=== PATIENT | female | born 1980 | race Caucasian/White ===

== ENCOUNTER 2021-04-15 12:46 | Emergency (ER) | payer OTHER, SELFPAY ==
--- NOTE | ~2021-04-15 | CT_ITS ---
EXAMINATION: CT ABDOMEN AND PELVIS WITH CONTRAST CLINICAL INFORMATION: Epigastric pain COMPARISON: None TECHNIQUE: Multidetector volumetric images were obtained from the superior aspect of the liver through the pubic symphysis following administration 85 mL of Omnipaque 350 intravenous contrast. Sagittal and coronal reformatted images were obtained on the technologist's workstation. Oral contrast: No This CT examination was performed using dose optimization techniques as appropriate, variously including the following: *Automated exposure control *Adjustment of mA and/or kV according to patient size (this includes techniques or standardized protocols for targeted exams where dose is matched to indication/reason for exam; i.e. extremities or head) *Use of iterative reconstruction technique DLP: 260 to mGy-cm FINDINGS: LUNG BASES: The visualized lung bases are unremarkable. LIVER, GALLBLADDER, AND BILIARY TREE: The liver is normal in size, shape, and attenuation. No focal hepatic lesion or biliary ductal dilatation is present. The gallbladder is unremarkable with no evidence of radiopaque gallstones, gallbladder wall thickening, or obvious pericholecystic inflammatory changes. PANCREAS: Unremarkable. SPLEEN: Unremarkable. ADRENAL GLANDS: Unremarkable. KIDNEYS AND URETERS: The kidneys are normal in size, shape, and attenuation. The right kidney is ptotic. No hydronephrosis, hydroureter, or calculi seen. No perinephric stranding. BLADDER: Unremarkable. GASTROINTESTINAL TRACT: The small and large bowel are unremarkable. The appendix is unremarkable. ABDOMINAL WALL: No significant hernia is appreciated. LYMPH NODES: Normal. VASCULAR: Unremarkable. PELVIC VISCERA: An anteverted uterus is present. There is 1.9 cm water density cyst in the right ovary. Left ovary is small and unremarkable. OSSEOUS STRUCTURES: Minimal degenerative change present at L4-L5 with minimal retrolisthesis of L4 upon L5. CT/CT abdomen pelvis w con IMPRESSION: 1. A cause for the patient's acute epigastric pain has not been found. 2. Incidental note made of ptotic right kidney and right benign functional ovarian cyst. No further follow-up should be needed.
[2021-04-15 12:54] VITALS: BP 122/63; PULSE 109; RESP 18; TEMP 36.8; O2SAT 96; BMI 23.6
--- NOTE | 2021-04-15 14:57 | ED.ALCOHOL ---
HPI - Alcohol General Chief Complaint: ETOH/Substance Use Stated Complaint: alcohol intoxication Time Seen by Provider: 04/15/21 14:42 Source: patient Mode of arrival: ambulatory Limitations: no limitations History of Present Illness HPI narrative: Patient comes emergency room complaining of abdominal pain and alcohol intoxication. Patient states she drinks 3 pt of vodka yesterday and 2 pt of vodka today. Patient states this is more alcohol than she usually ingests. Patient denies suicidal ideation. Patient has had history of pancreatitis in the past. Related Data Previous Rx's Medication Instructions Recorded aripiprazole 10 mg tablet (Abilify) 10 mg PO BEDTIME #30 tab 04/08/21 levetiracetam 750 mg tablet 750 mg PO BID #60 tab 04/08/21 pantoprazole 40 mg tablet,delayed 40 mg PO DAILY #30 tab 04/08/21 release sertraline 100 mg tablet (Zoloft) 100 mg PO DAILY #30 tab 04/08/21 Allergies Allergy/AdvReac Type Severity Reaction Status Date / Time Penicillins AdvReac Rash Verified 04/15/21 12:53 Review of Systems Review of Systems: Constitutional : No Weight loss, No Fever, No Chills, No Night Sweats, No Fatigue, No Malaise ENT/Mouth : No Hearing loss, No Ear Pain, No Nasal Congestion, No Sinus Pain, No Hoarseness, No sore throat, No Rhinorrhea, No Swallowing Difficulty Eyes: No Eye Pain, No Swelling, No Redness, No Foreign Body, No Discharge, No Vision Changes Cardiovascular : No Chest Pain, No SOB, No Dyspnea on Exertion, No Orthopnea, No Edema, No Palpitations Respiratory : No Cough, No Sputum, No Wheezing, No Smoke Exposure, No Dyspnea Gastrointestinal : Complaining of nausea, vomiting, no constipation, complaining of diarrhea, complaining of epigastric and suprapubic pain Genitourinary : Irregular menstrual cycle No Dysuria, No Urinary Frequency, complaining of Hematuria for 3 weeks No Urinary Incontinence, No Urgency, No Flank Pain, No Urinary Flow Changes, No Hesitancy Musculoskeletal : No joint pain, No Myalgias, No Joint Swelling Skin : No Skin Lesions, No rash Neuro : No Weakness, No Numbness, No Paresthesias, No Loss of Consciousness, No Dizziness, No Headache Psych : No Anxiety/Panic, No Depression, No SI/HI/AH/VH, No Social Issues, Heme/Lymph: No Bruising, No Bleeding,No Lymphadenopathy Endocrine : No Polyuria, No Polydipsia, No Temperature Intolerance [facility] Past Medical History Medical History (Updated 04/15/21 @ 16:17 by Monalisa Santos MD) Alcohol use disorder Chronic heartburn Cigarette smoker one half pack a day or less Depression with anxiety Hx of Hx of pancreatitis Irregular periods/menstrual cycles Seizure disorder Surgical History [place] teeth extracted Family History Family History (Updated 04/08/21 @ 16:32 by Bertha Benoit CMA) Other No significant family history Social History Social History Housing: Other (mobile home with mother) Alcohol intake: current Alcohol intake frequency: a few times a week Alcohol type: beer and other Patient Tobacco Use Status: Current everyday Tobacco user Cigarette Packs Per Day: 0.5 Advance Directives: No Patient : No Current occupational status: unemployed Physical Exam Vital Signs: Vital Signs: Last Vital Signs Temp 98.3 F 04/15/21 12:54 Pulse 109 H 04/15/21 12:54 Resp 18 04/15/21 12:54 BP 122/63 04/15/21 12:54 Pulse Ox 96 04/15/21 12:54 Body Mass Index 23.6 Const: Other: Appearance: Alert. Oriented X3. , seems intoxicated, teary Eyes: Pupils equal, round and reactive to light. ENT: Pharynx normal. Neck: Normal inspection. Neck supple. No lymph nodes noted. No crepitus CVS: Normal heart rate and rhythm. Pulses normal. Normal S1 and S2 Respiratory: No respiratory distress. Breath sounds normal. No Wheezing. No rales Abdomen: Soft, tenderness to palpation in epigastric area and suprapubic area, no rigidity. No distention. Skin: Skin warm and dry. Normal skin color. Normal skin turgor. Extremities: No lower extremity edema. No lower extremity edema. No Lacerations. No Rash Neuro: Oriented X 3. No motor deficit. No sensory deficit. Moving all extermities. No slurred speech. Course Course Course Narrative: Labs pending, CT scan pending, sign-out given to Dr. Negron MDM - Alcohol Lab Data Result diagrams: 04/15/21 15:06 04/15/21 15:06 Labs: Lab Results 04/15/21 04/15/21 04/15/21 Range/Units 15:06 15:06 15:06 WBC 5.9 (4.8-10.8) X10*3/uL RBC 5.36 (4.20-5.50) X10*6/uL Hgb 14.4 (12.0-16.0) g/dl Hct 43.1 (37-47) % MCV 80.4 (80-98) fL MCH 26.9 L (27.0-33.0) pg MCHC 33.4 (31.0-35.0) g/dl RDW 16.8 H (11.0-16.0) % Plt Count 206 (160-400) X10*3/uL MPV 8.5 L (9.4-12.3) fL Immature Gran % (Auto) 0.2 (0.0-0.4) % Neut % (Auto) 27.5 L (45-73) % Lymph % (Auto) 65.6 H (20-40) % [place] % (Auto) 4.3 (2-11) % Eos % (Auto) 1.5 (0-4) % Baso % (Auto) 0.9 (0-2) % Lymph # (Auto) 3.8 (1.2-4.9) X10*3/uL [place] # (Auto) 0.3 (0.1-1.2) X10*3/uL Eos # (Auto) 0.1 (0.0-0.4) X10*3/uL Baso # (Auto) 0.1 (0.0-0.2) X10*3/uL Abs Immat Gran (auto) 0.01 (0.00-0.03) X10*3/uL Absolute Neuts (auto) 1.6 L (2.0-8.3) X10*3/uL Absolute Nucleated RBC 0.000 (0.0-0.012) X10*3/uL Nucleated RBC % (auto) 0.0 (0.0-0.2) /100WBC Smear Tech's Comments VERIFIED Sodium 139 (135-145) mmol/L Potassium 4.1 (3.3-5.1) mmol/L Chloride 105 (96-108) mmol/L Carbon Dioxide 23 (22-29) mmol/L Anion Gap 15 (12-20) BUN 9 (9-16) mg/dL Creatinine 0.71 (0.5-1.4) mg/dL Estim Creat Clear Calc 88.0 Estimated GFR > 60 Random Glucose 91 (60-115) mg/dL Calcium 8.1 L (8.4-10.2) mg/dL Total Bilirubin 0.5 (0.0-1.0) mg/dL AST 169 H (5-31) U/L ALT 307 H (0-31) U/L Alkaline Phosphatase 82 (39-117) U/L Total Protein 7.5 (6.5-8.0) g/dL Albumin 4.1 (3.5-5.0) g/dL Lipase (8-78) U/L Ethyl Alcohol 387 H* mg/dL 04/15/ Range/Units 15:06 WBC (4.8-10.8) X10*3/uL RBC (4.20-5.50) X10*6/uL Hgb (12.0-16.0) g/dl Hct (37-47) % MCV (80-98) fL MCH (27.0-33.0) pg MCHC (31.0-35.0) g/dl RDW (11.0-16.0) % Plt Count (160-400) X10*3/uL MPV (9.4-12.3) fL Immature Gran % (Auto) (0.0-0.4) % Neut % (Auto) (45-73) % Lymph % (Auto) (20-40) % [place] % (Auto) (2-11) % Eos % (Auto) (0-4) % Baso % (Auto) (0-2) % Lymph # (Auto) (1.2-4.9) X10*3/uL [place] # (Auto) (0.1-1.2) X10*3/uL Eos # (Auto) (0.0-0.4) X10*3/uL Baso # (Auto) (0.0-0.2) X10*3/uL Abs Immat Gran (auto) (0.00-0.03) X10*3/uL Absolute Neuts (auto) (2.0-8.3) X10*3/uL Absolute Nucleated RBC (0.0-0.012) X10*3/uL Nucleated RBC % (auto) (0.0-0.2) /100WBC Smear Tech's Comments Sodium (135-145) mmol/L Potassium (3.3-5.1) mmol/L Chloride (96-108) mmol/L Carbon Dioxide (22-29) mmol/L Anion Gap (12-20) BUN (9-16) mg/dL Creatinine (0.5-1.4) mg/dL Estim Creat Clear Calc Estimated GFR Random Glucose (60-115) mg/dL Calcium (8.4-10.2) mg/dL Total Bilirubin (0.0-1.0) mg/dL AST (5-31) U/L ALT (0-31) U/L Alkaline Phosphatase (39-117) U/L Total Protein (6.5-8.0) g/dL Albumin (3.5-5.0) g/dL Lipase 76 (8-78) U/L Ethyl Alcohol mg/dL Discharge Plan Discharge Clinical Impression: Alcoholic intoxication Prescriptions: No Action levetiracetam 750 mg tablet 750 mg PO BID Qty: 60 RF: 0 pantoprazole 40 mg tablet,delayed release (DR/EC) 40 mg PO DAILY Qty: 30 RF: 0 aripiprazole [Abilify] 10 mg tablet 10 mg PO BEDTIME Qty: 30 RF: 0 sertraline [Zoloft] 100 mg tablet 100 mg PO DAILY Qty: 30 RF: 0
[2021-04-15 15:18] LABS: Basophils Absolute Auto 0.1 X10*3/uL (0.0-0.2); Basophils Percent Auto 0.9 % (0-2); Eosinophils Absolute Auto 0.1 X10*3/uL (0.0-0.4); Eosinophils Percent Auto 1.5 % (0-4); Hematocrit 43.1 % (37-47); Hemoglobin 14.4 g/dl (12.0-16.0); Imm Gran Abs Auto 0.01 X10*3/uL (0.00-0.03); Imm Gran Pct Auto 0.2 % (0.0-0.4); Lymphocytes Absolute Auto 3.8 X10*3/uL (1.2-4.9); Lymphocytes Percent Auto 65.6 % (20-40); MANUAL DIFF FLAG SCAN; Mean Corpuscular HGB Conc 33.4 g/dl (31.0-35.0); Mean Corpuscular Hemoglobin 26.9 pg (27.0-33.0); Mean Corpuscular Volume 80.4 fL (80-98); Mean Platelet Volume 8.5 fL (9.4-12.3); Monocytes Absolute Auto 0.3 X10*3/uL (0.1-1.2); Monocytes Percent Auto 4.3 % (2-11); Neutrophils Absolute Auto 1.6 X10*3/uL (2.0-8.3); Neutrophils Percent Auto 27.5 % (45-73); Platelet Count 206 X10*3/uL (160-400); Red Blood Count 5.36 X10*6/uL (4.20-5.50); Red Cell Distribution Width 16.8 % (11.0-16.0); SCAN SMEAR FLAG 1; White Blood Count 5.9 X10*3/uL (4.8-10.8)
[2021-04-15 15:28] LABS: Ethanol 387 mg/dL
[2021-04-15 15:32] LABS: Lipase 76 U/L (8-78)
[2021-04-15 15:35] LABS: Alanine Aminotransferase 307 U/L (0-31); Albumin Level 4.1 g/dL (3.5-5.0); Alkaline Phosphatase 82 U/L (39-117); Anion Gap 15 (12-20); Aspartate Amino Transferase 169 U/L (5-31); Bilirubin Total 0.5 mg/dL (0.0-1.0); Blood Urea Nitrogen 9 mg/dL (9-16); Calcium 8.1 mg/dL (8.4-10.2); Carbon Dioxide 23 mmol/L (22-29); Chloride 105 mmol/L (96-108); Estimated Glomerular Filt Rate > 60; Glucose Random 91 mg/dL (60-115); Potassium 4.1 mmol/L (3.3-5.1); Sodium 139 mmol/L (135-145); Total Protein 7.5 g/dL (6.5-8.0)
[2021-04-15] MEDS: ondansetron HCL 4 MG/2 ML VIAL IVPUSH (16:08)
[2021-04-15 16:11] LABS: SLIDE REVIEW VERIFIED
[2021-04-15 16:18] LABS: HCG Quantitative < 2 mIU/mL
[2021-04-15] MEDS: 0.9 % Sodium Chloride 1,000 ML 999 ML IVCONT (16:19)
[2021-04-15 16:28] VITALS: BP 123/86; RESP 14; TEMP 36.3; O2SAT 96
[2021-04-15 16:45] LABS: Amphetamine Screen Urine Not Detected (Not Detect); Barbiturates, Urine Not Detected (Not Detect); Benzodiazepines Screen Urine Not Detected (Not Detect); Cannabinoid Screen Urine Not Detected (Not Detect); Cocaine Screen Urine Not Detected (Not Detect); Fentanyl, urine Not Detected (Not Detect); Opiate Screen Urine Not Detected (Not Detect); Phencyclidine Screen Urine Not Detected (Not Detect)
[2021-04-15] MEDS: levETIRAcetam 500 MG TABLET 750 MG PO (16:57)
[2021-04-15] MEDS: iohexoL 350 MG/ML 100 ML INFUS..BTL IV (17:13)
--- NOTE | 2021-04-15 18:07 | MHC.RECOVSUP ---
? Reason for consult Recovery Support o Current location: ED6[facility] o Identified substance use concern: Alcohol - Withdrawal - Seeking ATS (detox) - Support ? Intervention: <del>o</del> <del>ATS</del> <del>bed</del> <del>search</del> <del>started/completed/in</del> <del>process</del> <del>o</del> <del>MAT</del> <del>started</del> <del>or</del> <del>to</del> <del>be</del> <del>started</del> o Community resources provided o Harm reduction discussion ? Plan: o Follow up tomorrow o Patient to follow up with H after discharge ? Additional information: Patient withdrawing from alcohol and seeking help getting into detox.. Theres no detox bed at the moment.. Patient was given resources to follow up when patient is discharge.
[2021-04-15] MEDS: Magnesium Hydrox/Alum Hydrox 30 ML ORAL.SUSP PO ×2 (18:18→18:41)
[2021-04-15] MEDS: Famotidine/PF 20 MG/2 ML VIAL IVPUSH (18:19)
[2021-04-15] MEDS: Lidocaine HCl Viscous 2 % 15 ML SOLUTION MUCOUS MEM (18:41)
[2021-04-15 19:11] LABS: UPreg QC Valid YES; Urine Pregnancy NEGATIVE (NEGATIVE)
--- NOTE | 2021-04-15 19:15 | PC.NURSE ---
pt calling for sober ride home. pt denies any complaints except for abd pain. MD aware. awaiting for pt's decision.
--- NOTE | 2021-04-15 19:27 | PC.NURSE ---
pt awaiting for ride home from her Mother.
[2021-04-15 19:48] VITALS: BP 121/84; PULSE 89; RESP 16; O2SAT 99
--- NOTE | 2021-04-15 19:48 | PC.NURSE ---
pt up and walking around the ED with steady even gait. Pt denies any complaints. No shaking noted by pt. CIWA - 0.
--- NOTE | 2021-04-15 19:52 | PC.NURSE ---
PT'S MOTHER HERE FOR RIDE HOME. PT ESCORTED TO MOTHER'S VEHICLE WITH STEADY EVEN GAIT AND IN NAD.
== END 2021-04-15 19:55 | disposition home or self-care (01) ==
PROVIDERS: Emergency Provider Emergency Medicine
DX: F10.920 Alcohol use, unspecified with intoxication, uncomplicated (principal); Y90.8 Blood alcohol level of 240 mg/100 ml or more; K70.10 Alcoholic hepatitis without ascites; F41.8 Other specified anxiety disorders; F17.200 Nicotine dependence, unspecified, uncomplicated; Z79.899 Other long term (current) drug therapy
CPT/HCPCS: 36415; 74177; 80053; 80307; 81025; 82077; 83690; 84702; 85025; 96361; 96374; 96375; 99284; 99285; J2405; Q9967

== ENCOUNTER 2022-03-29 15:48 | Outpatient (REF) | payer OTHER, SELFPAY ==
--- NOTE | ~2022-03-29 | XR_ITS ---
EXAMINATION: XR PELVIS CLINICAL INFORMATION: Pain. COMPARISON: CT scan of the abdomen and pelvis dated April 15, 2021. TECHNIQUE: AP view of the pelvis. FINDINGS: Left iliac bone islands, unchanged compared with March 2021. The bones and soft tissues otherwise appear unremarkable. No fracture identified. Sacroiliac and hip joints appear unremarkable. Pubic symphysis appears normal. No abnormal soft tissue calcifications. Tarah. XR/XR pelvis min 3V IMPRESSION: No acute finding.
== END 2022-03-29 15:49 | disposition home or self-care (01) ==
LOC: HO.HMGCX 15:48
PROVIDERS: PCP Internal Medicine; Visit Provider Emergency Medicine
DX: R10.2 Pelvic and perineal pain (principal)
CPT/HCPCS: 72190

== ENCOUNTER 2022-04-14 15:20 | Outpatient (REF) | payer OTHER, SELFPAY ==
[2022-04-15 05:18] LABS: CT PCR NOT DETECTED (Not Detect.); NG PCR NOT DETECTED (Not Detect.)
[2022-04-15 09:07] LABS: BV Int Neg Control Negative (Negative); BV Int Pos Control Positive (Positive)
[2022-04-19 16:02] LABS: HPV mRNA E6/E7 rflx Not Detected (Not Detected)
== END 2022-04-14 15:21 | disposition home or self-care (01) ==
LOC: HO.LNP 15:20
PROVIDERS: Visit Provider Advanced Practice Midwife
DX: Z01.419 Encounter for gynecological examination (general) (routine) without abnormal findings (principal); Z11.3 Encounter for screening for infections with a predominantly sexual mode of transmission
CPT/HCPCS: 87480; 87491; 87510; 87591; 87624; 87660; 88142

== ENCOUNTER 2023-03-12 08:04 | Emergency (ER) | payer MEDICARE, MEDICAID, SELFPAY ==
[2023-03-12 08:10] VITALS: BP 130/87; PULSE 92; RESP 18; O2SAT 96
--- NOTE | 2023-03-12 08:11 | ECG_ITS ---
Test Reason : chest pain Blood Pressure : / mmHG Vent. Rate : 083 BPM Atrial Rate : 083 BPM P-R Int : 174 ms QRS Dur : 074 ms QT Int : 390 ms P-R-T Axes : 077 090 063 degrees QTc Int : 458 ms Normal sinus rhythm with sinus arrhythmia Rightward axis Possible Anterior infarct , age undetermined Abnormal ECG No previous ECGs available Referred By: Jai Mckenzie Electronically Signed By:SADI INGRAM
--- NOTE | 2023-03-12 08:13 | ED_ITS ---
HPI - Alcohol General Chief Complaint: ETOH/Substance Use Stated Complaint: ETOH USE LAST NIGHT PER EMS Time Seen by Provider: 03/12/23 08:06 Source: patient and EMS Mode of arrival: EMS Limitations: no limitations History of Present Illness HPI narrative: 43-year-old female recently discharged from detox presents with possible alcohol withdrawal. Last drink was approximately 9:00 a.m. last night. She has been drinking for 5 days. She does have a history of marijuana use. Patient feels shaky, nauseous and having some mild upper abdominal pain. Patient describes her overall symptoms as severe. There is no clear relieving or exacerbating features. She denies any fevers or chills. She has no diarrhea constipation. Scribe's her upper abdominal pain is burning and crampy in nature. Pain itself does not radiate. Her vomitus has been nonbloody. Related Data Previous Rx's Medication Instructions Recorded levetiracetam 750 mg tablet 750 mg PO BID #60 tabs 09/15/21 Allergies Allergy/AdvReac Type Severity Reaction Status Date / Time Penicillins AdvReac Rash Verified 04/14/22 14:44 Review of Systems 2 Review of Systems: CONSTITUTIONAL: Denies weight loss, fever and chills. HEENT: Denies changes in vision and hearing. RESPIRATORY: Denies SOB and cough. CV: Denies palpitations no CP. GI: + abdominal pain, nausea, vomiting - diarrhea. : Denies dysuria and urinary frequency. MSK: Denies myalgia and joint pain. SKIN: Denies rash and pruritus. NEUROLOGICAL: Denies headache and syncope. PSYCHIATRIC: Denies recent changes in mood. Denies anxiety and depression. All other ROS are negative unless in HPI PMFSH Past Medical History Medical History Alcohol use disorder Cigarette smoker one half pack a day or less Irregular periods/menstrual cycles Depression with anxiety Chronic heartburn Hx of pancreatitis Seizure disorder Hx of Surgical History [place] teeth extracted Family History Family History Other No significant family history Social History Social History Housing: Other (mobile home with mother) Alcohol intake: current Alcohol intake frequency: 3 or more drinks per day Alcohol type: hard liquor Patient Tobacco Use Status: Current everyday Tobacco user Cigarette Packs Per Day: 0.5 Smoked in Last 30 Days: Yes Use of substances other than those prescribed or required for medical reasons: Yes Substance Use Type: Marijuana Advance Directives: No Advance Directives Information Provided: Yes Current occupational status: unemployed Physical Exam ED Vital Signs: Vital Signs - 24 hr 03/12/23 08:10 03/12/23 11:23 Temperature 98.4 F Pulse Rate 92 86 Respiratory Rate 18 20 Blood Pressure 130/87 100/64 Pulse Oximetry 96 96 Oxygen Delivery Method Room Air Room Air BMI result Body Mass Index 18.1 GEN: Well developed, acute distress, alert, oriented HEENT: Normocephalic, atraumatic, normal external ears, nose appears normal, no oropharyngeal edema or exudates Eyes: Normal to appearance Neck: Supple, no lymphadenopathy Respiratory: Talks in complete sentences, no respiratory distress, clear to auscultation bilaterally Cardiovascular: Regular rate and rhythm, no murmurs rubs or gallops Abdomen: Soft, nontender, nondistended, no guarding, no rebound Back: No CVA tenderness Extremities: No clubbing cyanosis or edema Neurologic: No focal neurologic deficits, cranial nerves 2-12 intact, strength is 5/5 bilaterally Skin: No rash Course Reevaluation(s) Reevaluation #1: Patient reports feeling anxious and feels like she withdrawing. We discussed her alcohol level. She is not withdrawing from alcohol at this time and her symptoms are more likely related to gastritis and anxiety. I will put a care team consultation. Patient is otherwise medically clear. I will place the patient in physician observation. Time: 12:47 Reevaluation #2: Patient is expressing a desire to be discharged at this time. She is laboratory testing still intoxicated. We will ambulate her. She is aware of the risks of leaving at this time. Patient does appear to have clinical making decision for herself and is not opposed appear to pose imminent threat to herself or others via suicidal homicidal ideation. I do recommend that she obtain a sober sales warehouse driver to take her home. Certainly she cannot drive at this time. Time: 13:24 Medical Decision Making Medical Decision Making MDM Narrative: 43-year-old female with history of alcohol abuse presents with intractable nausea vomiting. Examination is benign of the vomiting. She is hemodynamically stable. Will provide patient with sublingual Zofran until you are able to obtain intravenous access. So following that, will give additional antiemetics, H2 blockers, IV fluids. Will check routine laboratory analysis make sure there is no hepatic dysfunction, alcohol intoxication. Will provide patient with Ativan for possible withdrawal symptoms. Differential diagnosis includes alcohol withdrawal, gastroenteritis, gastritis, alcohol intoxication, GERD. There is no indication for emergent imaging at this time. Differential Diagnosis Differential Diagnoses: The differential diagnosis associated with the presentation includes (See above) Admission/Observation Consideration of admission/observation: Escalation of care including admission/observation considered Lab Data MDM Lab Attestation statement: I reviewed the patient's lab results. 03/12/23 08:50 03/12/23 11:23 Labs: Lab Results 03/12/23 03/12/23 03/12/23 Range/Units 08:25 08:50 11:23 WBC 7.7 (4.8-10.8) X10*3/uL RBC 6.00 H (4.20-5.50) X10*6/uL Hgb 17.4 H (12.0-16.0) g/dl Hct 50.5 H (37.0-47.0) % MCV 84.2 (80.0-98.0) fL MCH 29.0 (27.0-33.0) pg MCHC 34.5 (31.0-35.0) g/dl RDW 13.1 (11.0-16.0) % Plt Count 196 (160-400) X10*3/uL MPV 8.7 L (9.4-12.3) fL Immature Gran % (Auto) 0.3 (0.0-0.4) % Neut % (Auto) 64.7 (45-73) % Lymph % (Auto) 30.3 (20-40) % [place] % (Auto) 3.9 (2-11) % Eos % (Auto) 0.5 (0-4) % Baso % (Auto) 0.3 (0-2) % Lymph # (Auto) 2.3 (1.2-4.9) X10*3/uL [place] # (Auto) 0.3 (0.1-1.2) X10*3/uL Eos # (Auto) 0.0 (0.0-0.4) X10*3/uL Baso # (Auto) 0.0 (0.0-0.2) X10*3/uL Abs Immat Gran (auto) 0.02 (0.00-0.03) X10*3/uL Absolute Neuts (auto) 5.0 (2.0-8.3) x10*3/uL Absolute Nucleated RBC 0.000 (0.0-0.012) X10*3/uL Nucleated RBC % (auto) 0.0 (0.0-0.2) /100WBC Sodium 138 (135-145) mmol/L Potassium 4.0 (3.3-5.1) mmol/L Chloride 105 (96-108) mmol/L Carbon Dioxide 19 L (22-29) mmol/L Anion Gap 18 (12-20) BUN 12 (9-16) mg/dL Creatinine 0.68 (0.5-1.4) mg/dL Estim Creat Clear Calc 84.8 Estimated GFR > 60 Random Glucose 70 (60-115) mg/dL Calcium 8.3 L (8.4-10.2) mg/dL Total Bilirubin 0.8 (0.0-1.0) mg/dL AST 63 H (5-31) U/L ALT 57 H (0-31) U/L Alkaline Phosphatase 46 (39-117) U/L Total Protein 6.5 (6.5-8.0) g/dL Albumin 3.8 (3.5-5.0) g/dL Beta HCG, Quant < 2 mIU/mL Urine Color Yellow Urine Appearance Cloudy Urine pH 6.0 (5.0-9.0) Ur Specific [place] 1.020 (1.005-1.025) Urine Protein 30 (1+) H (Neg-Trace) mg/dL Urine Glucose (UA) Negative (Negative) mg/dL Urine Ketones 40 (Negative) mg/dL Urine Blood Negative (Negative) Urine Nitrite Negative (Negative) Ur Leukocyte Esterase Negative (Negative) Urine RBC 3-5 H (0-2) /HPF Urine WBC 6-10 H (0-5) /HPF Ur Squamous Epith Cells 11-20 (0-2) /HPF Urine Bacteria 2+ (None Seen) Hyaline Casts 0-2 (0-2) /LPF Urine Opiates Screen Not Detected (Not Detect) Urine Fentanyl Screen Not Detected (Not Detect) Ur Barbiturates Screen Not Detected (Not Detect) Ur Phencyclidine Scrn Not Detected (Not Detect) Ur Amphetamines Screen POSITIVE H (Not Detect) U Benzodiazepines Scrn Not Detected (Not Detect) Urine Cocaine Screen Not Detected (Not Detect) U Marijuana (THC) Screen POSITIVE H (Not Detect) Ethyl Alcohol 98 mg/dL Independent Interpretation I performed an independent interpretation of an: EKG (Normal sinus rhythm heart rate 83, sinus arrhythmia, possible LVH, no acute ST elevations depressions) Independent Historian Clinical information obtained from an independent historian. History obtained from or confirmed by: EMS Prescription Management I considered prescription management with: Pain Medication Chronic Conditions Patient?s care impacted by: Other (Alcohol abuse, seizure disorder) Medications Administered Discontinued Medications Generic Name Dose Route Start Last Admin Trade Name Freq PRN Reason Stop Dose Admin Famotidine 20 mg 03/12/23 08:11 03/12/23 09:01 Famotidine/Pf 20 Mg/2 Ml Vial IVPUSH 03/12/23 08:12 20 mg ONCE ONE Administration Sodium Chloride 1,000 mls @ 999 mls/hr 03/12/23 08:15 03/12/23 11:31 Ns IV 03/12/23 09:15 Infused .Q1H1M ALICIA Infusion Lorazepam 1 mg 03/12/23 08:11 03/12/23 09:01 Lorazepam 2 Mg/Ml Vial IVPUSH 03/12/23 08:12 1 mg ONCE ONE Administration Metoclopramide HCl 10 mg 03/12/23 08:11 03/12/23 09:01 Metoclopramide Hcl 10 Mg/2 Ml Vial IVPUSH 03/12/23 08:12 10 mg ONCE ONE Administration Ondansetron HCl 4 mg 03/12/23 08:11 03/12/23 08:26 Ondansetron Odt 4 Mg Tab.Rapdis TRANSLINGU 03/12/23 08:12 4 mg ONCE ONE Administration Discharge Plan Discharge Clinical Impression: Intractable nausea and vomiting, Alcohol intoxication Patient Disposition: Left Against Medical Advice Instructions: Abuse of Alcohol (DC) Prescriptions: No Action levetiracetam 750 mg tablet 750 mg PO BID Qty: 60 0RF Stand Alone Forms: Against Medical Advice
[2023-03-12] MEDS: Ondansetron ODT 4 MG TAB.RAPDIS TRANSLINGU (08:26)
[2023-03-12 08:28] VITALS: BP 118/70; PULSE 72; O2SAT 100; BMI 18.1
[2023-03-12 08:37] LABS: Appearance Urine Cloudy; Color Urine Yellow; Glucose Urine UA Negative (Negative); Leukocyte Esterase Urine Negative (Negative); Nitrite Urine Negative (Negative); UMIC TRIGGER UACC YES; Urine Blood Negative (Negative); Urine Ketones 40 mg/dL (Negative); Urine Protein 30 (1+) mg/dL (Neg-Trace)
[2023-03-12 08:41] LABS: Bacteria Urine 2+ (None Seen); Hyaline Casts Urine 0-2 /LPF (0-2); UACC Culture Trigger YES
--- NOTE | 2023-03-12 08:42 | PC.NURSE ---
per patients request called mother marge to let her know that she was in the hospital. mother stating that she needs help, that she refused to go to [facility] yesterday unless she had more alcohol.
[2023-03-12 08:47] LABS: Amphetamine Screen Urine POSITIVE (Not Detect); Barbiturates, Urine Not Detected (Not Detect); Benzodiazepines Screen Urine Not Detected (Not Detect); Cannabinoid Screen Urine POSITIVE (Not Detect); Cocaine Screen Urine Not Detected (Not Detect); Fentanyl, urine Not Detected (Not Detect); Opiate Screen Urine Not Detected (Not Detect); Phencyclidine Screen Urine Not Detected (Not Detect)
[2023-03-12 08:58] LABS: MANUAL DIFF FLAG NO
[2023-03-12] MEDS: LORazepam 2 MG/ML VIAL 1 MG IVPUSH (09:01)
[2023-03-12] MEDS: Famotidine/PF 20 MG/2 ML VIAL IVPUSH (09:01)
[2023-03-12] MEDS: 0.9 % Sodium Chloride 1,000 ML 999 ML IV (09:01)
[2023-03-12] MEDS: Metoclopramide HCl 10 MG/2 ML VIAL IVPUSH (09:01)
[2023-03-12 09:10] LABS: Basophils Percent Auto 0.3 % (0-2); Eosinophils Percent Auto 0.5 % (0-4); Hematocrit 50.5 % (37.0-47.0); Hemoglobin 17.4 g/dl (12.0-16.0); Imm Gran Abs Auto 0.02 X10*3/uL (0.00-0.03); Imm Gran Pct Auto 0.3 % (0.0-0.4); Lymphocytes Absolute Auto 2.3 X10*3/uL (1.2-4.9); Lymphocytes Percent Auto 30.3 % (20-40); Mean Corpuscular HGB Conc 34.5 g/dl (31.0-35.0); Mean Corpuscular Volume 84.2 fL (80.0-98.0); Mean Platelet Volume 8.7 fL (9.4-12.3); Monocytes Absolute Auto 0.3 X10*3/uL (0.1-1.2); Monocytes Percent Auto 3.9 % (2-11); Neutrophils Percent Auto 64.7 % (45-73); Platelet Count 196 X10*3/uL (160-400); Red Cell Distribution Width 13.1 % (11.0-16.0); White Blood Count 7.7 X10*3/uL (4.8-10.8)
--- NOTE | 2023-03-12 09:10 | PC.NURSE ---
Patient arrived via ems from [facility] in [place] were she has been living. Patient reports that she has been drinking heavily for the last week, and was trying to stop. patient reports last drink was last night. Patient reports has been throwing up and having dry heaves since 2am. Patient medicated per aug, resting comfortably at this time
--- NOTE | 2023-03-12 09:15 | PC.NURSE ---
Mother Misbah number is [phone]
[2023-03-12 11:23] VITALS: BP 100/64; PULSE 86; RESP 20; TEMP 36.9; O2SAT 96
--- NOTE | 2023-03-12 11:30 | PC.NURSE ---
calm and cooperative, denies pain or discomfort, ciwa 0 at this time. labs drawn by tech, reports feeling much better.
[2023-03-12 11:45] LABS: Ethanol 98 mg/dL
[2023-03-12 11:53] LABS: Alanine Aminotransferase 57 U/L (0-31); Albumin Level 3.8 g/dL (3.5-5.0); Alkaline Phosphatase 46 U/L (39-117); Anion Gap 18 (12-20); Aspartate Amino Transferase 63 U/L (5-31); Bilirubin Total 0.8 mg/dL (0.0-1.0); Blood Urea Nitrogen 12 mg/dL (9-16); Calcium 8.3 mg/dL (8.4-10.2); Carbon Dioxide 19 mmol/L (22-29); Chloride 105 mmol/L (96-108); Creatinine Clr Calc Pharmacy 84.8; Estimated Glomerular Filt Rate > 60; Glucose Random 70 mg/dL (60-115); Sodium 138 mmol/L (135-145); Total Protein 6.5 g/dL (6.5-8.0)
[2023-03-12 11:56] LABS: HCG Quantitative < 2 mIU/mL
--- NOTE | 2023-03-12 12:30 | PC.NURSE ---
Patient reports headache is returning and feels anxious, provider notified
--- NOTE | 2023-03-12 13:31 | PC.NURSE ---
Patient removed her IV, leads, BP cuff, and stated she was leaving. Allowed staff to place pressure dressing at bleeding iv site. States she was leaving, provider notified. Informed of risks of leaving ama, stated she is fine and is leaving. Packed belongings, signed ama paperwork and left facility
== END 2023-03-12 13:33 | disposition left against medical advice (07) ==
PROVIDERS: Emergency Provider Emergency Medicine
DX: F10.139 Alcohol abuse with withdrawal, unspecified (principal); R11.2 Nausea with vomiting, unspecified; Y90.4 Blood alcohol level of 80-99 mg/100 ml; F12.90 Cannabis use, unspecified, uncomplicated; R07.89 Other chest pain; R10.10 Upper abdominal pain, unspecified; F17.210 Nicotine dependence, cigarettes, uncomplicated; Z71.6 Tobacco abuse counseling; Z79.899 Other long term (current) drug therapy
CPT/HCPCS: 36415; 80053; 80307; 81001; 84702; 85025; 87086; 93005; 96361; 96374; 96375; 99285; J2060; J2765

== ENCOUNTER 2023-07-20 08:51 | Emergency (ER) | payer MEDICARE, MEDICAID, SELFPAY ==
--- NOTE | 2023-07-20 | ECG_ITS ---
Test Reason : Tachycardia Blood Pressure : / mmHG Vent. Rate : 087 BPM Atrial Rate : 087 BPM P-R Int : 188 ms QRS Dur : 086 ms QT Int : 384 ms P-R-T Axes : 082 085 070 degrees QTc Int : 462 ms Normal sinus rhythm Right atrial enlargement ST elevation, consider early repolarization Borderline ECG When compared with ECG of 12-MAR-2023 08:28, No significant change was found Referred By: Generic ED Physician Electronically Signed By:SHANTELL HAYWARD MD
--- NOTE | ~2023-07-20 | CT_ITS ---
EXAMINATION: CT CERVICAL SPINE WITHOUT CONTRAST CLINICAL INFORMATION: Status post seizure with head strike COMPARISON: None available. TECHNIQUE: Axial imaging was performed through the cervical spine. Reformatted coronal and sagittal images are provided for interpretation. This CT examination was performed using dose optimization techniques as appropriate, variously including the following: *Automated exposure control *Adjustment of mA and/or kV according to patient size (this includes techniques or standardized protocols for targeted exams where dose is matched to indication/reason for exam; i.e. extremities or head) *Use of iterative reconstruction technique DLP: 273 mGy-cm FINDINGS: the cervical spine is visualized in its entirety. There is straightening of the normal cervical lordosis. Alignment is otherwise unremarkable. Normal C1/2 articulation. Cervical vertebral body heights are maintained. There are prominent sclerotic changes involving the third, fourth, fifth and superior part of the C6 cervical vertebral bodies. There is mild to moderate disc space narrowing throughout the mid and lower cervical spine. Small osteophytes are present throughout the mid and lower cervical spine. Mild diffuse facet hypertrophy bilaterally. Visualized lung apices are well aerated. CT/CT cervical spine wo IV con IMPRESSION: 1. Mild to moderate degenerative changes of the mid and lower cervical spine. 2. Prominent sclerotic changes involving the third, fourth, fifth and superior part of the C6 cervical vertebral bodies, nonspecific. Fleischner guidelines were followed.
--- NOTE | ~2023-07-20 | CT_ITS ---
EXAMINATION: CT ABDOMEN AND PELVIS WITH CONTRAST CLINICAL INFORMATION: Abdominal pain and vomiting COMPARISON: 04/15/2021 TECHNIQUE: Multidetector volumetric images were obtained from the superior aspect of the liver through the pubic symphysis following administration 85 mL of Omnipaque 350 intravenous contrast. Sagittal and coronal reformatted images were obtained on the technologist's workstation. Oral contrast: No This CT examination was performed using dose optimization techniques as appropriate, variously including the following: *Automated exposure control *Adjustment of mA and/or kV according to patient size (this includes techniques or standardized protocols for targeted exams where dose is matched to indication/reason for exam; i.e. extremities or head) *Use of iterative reconstruction technique DLP: 270 mGy-cm FINDINGS: LUNG BASES: The visualized lung bases are unremarkable. LIVER, GALLBLADDER, AND BILIARY TREE: The liver is normal in size, shape, and attenuation. No focal hepatic lesion or biliary ductal dilatation is present. The gallbladder is unremarkable with no evidence of radiopaque gallstones, gallbladder wall thickening, or obvious pericholecystic inflammatory changes. PANCREAS: Unremarkable. SPLEEN: Unremarkable. ADRENAL GLANDS: Unremarkable. KIDNEYS AND URETERS: The kidneys are normal in size, shape, and attenuation. No hydronephrosis, hydroureter, or calculi seen. No perinephric stranding. BLADDER: Unremarkable. GASTROINTESTINAL TRACT: No bowel obstruction or right or left lower quadrant inflammatory change. Fluid-filled loops of small bowel particularly are noted extending towards the right lower quadrant. There is one such fluid-filled structure in the right lower quadrant with an air-fluid level which may be related to bowel but this is not certain. I would recommend repeating the study with oral contrast to ensure opacification of the small bowel and colon when clinically feasible. ABDOMINAL WALL: No significant hernia is appreciated. LYMPH NODES: Normal. VASCULAR: Unremarkable. PELVIC VISCERA: There is trace fluid in the cul-de-sac. There is a cystic process in the left ovary likely physiologic at 28 mm. Pelvic ultrasound would be helpful to better evaluate the left ovary. Right adnexa appears unremarkable although a small right ovarian cyst likely physiologic is noted at 14 mm transverse. OSSEOUS STRUCTURES: There is degenerative change L4-L5. No fracture or destructive process. CT/CT abdomen pelvis w IV con IMPRESSION: Physiologic process left ovary. Dilated fluid-filled structure right lower quadrant possibly related to bowel. Recommend repeating the scan with oral contrast to better delineate the fluid-filled structures in the pelvis. Fleischner guidelines were followed.
--- NOTE | ~2023-07-20 | CT_ITS ---
EXAMINATION: CT HEAD WITHOUT CONTRAST CLINICAL INFORMATION: Seizures. Head strike COMPARISON: None available. TECHNIQUE: Contiguous axial imaging was performed from the skull base to vertex without intravenous administration of contrast. This CT examination was performed using dose optimization techniques as appropriate, variously including the following: *Automated exposure control *Adjustment of mA and/or kV according to patient size (this includes techniques or standardized protocols for targeted exams where dose is matched to indication/reason for exam; i.e. extremities or head) *Use of iterative reconstruction technique DLP: 553 mGy-cm FINDINGS: No intra or extra-axial fluid collection, hemorrhage, mass, or mass effect. Calvarium intact. CT/CT head/brain wo IV con IMPRESSION: Unremarkable study.
--- NOTE | ~2023-07-20 | CT_ITS ---
EXAMINATION: CT ABDOMEN AND PELVIS WITHOUT CONTRAST CLINICAL INFORMATION: Abdominal pain. COMPARISON: Most recent CT abdomen/pelvis done earlier the same day. TECHNIQUE: Multidetector volumetric imaging was performed from the superior aspect of the liver through the pubic symphysis. The examination was performed following the administration of oral contrast, 900 mL Gastrografin. Sagittal and coronal reformatted images were obtained on the technologist's workstation. This CT examination was performed using dose optimization techniques as appropriate, variously including the following: *Automated exposure control. *Adjustment of mA and/or kV according to patient size (this includes techniques or standardized protocols for targeted exams where dose is matched to indication/reason for exam; i.e. extremities or head). *Use of iterative reconstruction technique. DLP: 283 mGy-cm FINDINGS: LUNG BASES: The visualized lung bases are unremarkable. LIVER, GALLBLADDER, AND BILIARY TREE: The liver is normal in size, shape, and attenuation. No focal hepatic lesion or biliary ductal dilatation is present. The gallbladder is unremarkable with no evidence of radiopaque gallstones, gallbladder wall thickening, or obvious pericholecystic inflammatory changes. PANCREAS: Unremarkable. SPLEEN: Unremarkable. ADRENAL GLANDS: Unremarkable. KIDNEYS AND URETERS: The kidneys are normal in size, shape, and attenuation. No hydronephrosis, hydroureter, or calculi seen. No perinephric stranding. BLADDER: Unremarkable. GASTROINTESTINAL TRACT: The small and large bowel are unremarkable. No small or large bowel obstruction. No bowel wall thickening or inflammatory change. The previously questioned right lower quadrant fluid-filled structure is indeed a loop of bowel with oral contrast within the lumen. No extravasation of contrast. Appendix is not well seen; however, no right lower quadrant inflammatory change. PERITONEAL CAVITY: No intra-abdominal free air or free fluid. No intra-abdominal mass or organized fluid collection/abscess formation. ABDOMINAL WALL: No significant hernia is appreciated. LYMPH NODES: No significant lymphadenopathy. VASCULAR: Unremarkable. PELVIC VISCERA: Unremarkable. OSSEOUS STRUCTURES: No acute osseous abnormality. Degenerative disc disease redemonstrated at L4-L5. CT/CT abdomen pelvis wo IV con IMPRESSION: 1. No small or large bowel obstruction. No bowel wall thickening or inflammatory change. The previously questioned right lower quadrant fluid-filled structure is indeed a loop of bowel with oral contrast within the lumen. No extravasation of contrast. 2. No intra-abdominal mass, lymphadenopathy, or ascites. Fleischner guidelines were followed.
[2023-07-20 09:00] VITALS: BP 134/85; PULSE 101; RESP 24; TEMP 36.4; O2SAT 100; BMI 23.8
--- NOTE | 2023-07-20 09:54 | ED_ITS ---
HPI - General Adult General Chief complaint: Seizure Stated complaint: Seizure ? Time Seen by Provider: 07/20/23 09:42 Source: patient and RN notes reviewed Mode of arrival: ambulatory Limitations: no limitations History of Present Illness HPI narrative: This is a 43-year-old female, with a past medical history of seizures managed on Keppra, alcohol abuse disorder, presenting to the emergency department for multiple complaints. Patient states that over the last year she has had intermittent tongue swelling, leg swelling, and bilateral fingers burning sensation - which she does not have now. She states that she had tongue swelling yesterday which caused her to have increased anxiety therefore she relapsed on alcohol. She was sober for the last year, drank approximately 12 nips. She states that this morning her mother walked in and patient was having a seizure. Uncertain how long this was occurring for. Patient states that she has not taken her Keppra in the last 2 days given relapse on alcohol. She also endorses diffuse abdominal pain, worse in the suprapubic region, right lower abdomen worse than left lower abdomen. She states that she has had chronic abdominal pain for the last several years, worsening today. She reports that she has irregular menses, last menstrual cycle was 3 months ago. Denies chance of . No abnormal vaginal bleeding or discharge. She does admit to having night sweats, as well as difficulty gaining weight despite no changes in eating habits. Denies any urinary symptoms. No other complaints or concerns at this time. complaint: ? Seizure Onset (ago): day(s) Relieving factors: none Exacerbating factors: none Associated symptoms: denies other symptoms Treatments prior to arrival: none Related Data Previous Rx's Medication Instructions Recorded levetiracetam 750 mg tablet 750 mg PO BID #60 tabs 09/15/21 Allergies Allergy/AdvReac Type Severity Reaction Status Date / Time Penicillins AdvReac Rash Verified 07/20/23 09:00 Review of Systems 2 Review of Systems: Yes all other systems are reviewed and are negative Constitutional: Constitutional: Reports as per HPI [facility] Past Medical History Medical History Alcohol use disorder Cigarette smoker one half pack a day or less Irregular periods/menstrual cycles Depression with anxiety Chronic heartburn Hx of pancreatitis Seizure disorder Hx of Surgical History [place] teeth extracted Family History Family History Other No significant family history Social History Social History Housing: Other (mobile home with mother) Alcohol intake: current Alcohol intake frequency: 3 or more drinks per day Alcohol type: hard liquor Patient Tobacco Use Status: Current everyday Tobacco user Cigarette Packs Per Day: 0.5 Substance Use Type: Marijuana Current occupational status: unemployed Physical Exam ED Vital Signs: Vital Signs - 24 hr 07/20/23 09:00 07/20/23 10:59 07/20/23 14:24 Temperature 97.6 F 98.2 F 98.1 F Pulse Rate 101 H 96 86 Respiratory Rate 24 H 18 18 Blood Pressure 134/85 124/84 122/74 Pulse Oximetry 100 99 98 Oxygen Delivery Method Room Air Room Air 07/20/23 17:57 Temperature 98.5 F Pulse Rate 87 Respiratory Rate 20 Blood Pressure 117/68 Pulse Oximetry 97 Oxygen Delivery Method Room Air BMI result Body Mass Index 23.8 Const General: cooperative, comfortable and no acute distress Orientation/consciousness: patient oriented x3 Limitations: no limitations HENMT Head: Yes normal to inspection, Yes normocephalic and Yes atraumatic Ears: hearing grossly normal bilaterally General nose exam: Normal external nose present Face and sinus: Yes normal facial exam Mouth: Normal oral and palatal mucosa present, oropharynx normal and moist mucous membranes Throat: Yes posterior oropharynx normal Eyes General: appearance normal, both eyes and all related structures Eyelids: Yes eyelids normal Conjunctivae: conjunctivae normal Sclerae: sclerae normal Pupils: Equal, round and reactive pupils present EOM: EOMs intact bilaterally Neck Neck: Yes normal visual inspection, Yes full ROM and Yes no lymphadenopathy Lymphatic: no lymphadenopathy noted Chest Chest palpation & inspection: normal inspection of the chest Resp Effort & Inspection: normal respiratory effort and able to speak in complete sentences Auscultation: clear to auscultation bilaterally, no crackles, no rales, no rhonchi and no wheezes Cardio Rate: regular rate Rhythm: regular rhythm Heart sounds: S1 normal heart sound present and S2 normal heart sound present GI Other: Abdomen is soft, with tenderness palpation throughout, more tenderness to palpation in the lower abdomen right lower abdomen worse than left Inspection: Yes normal to inspection Skin General skin exam: no rashes or lesions noted Trauma: no lacerations or abrasions Wounds: no wounds Neuro General: patient oriented x3 and moves all extremities Cranial nerves: Yes CN's II-XII intact bilaterally and Yes Equal, round and reactive pupils present Gait exam (Neuro): Normal gait present Motor exam (neuro): 5/5 motor strength present throughout and Pronator motor function not present Romberg Test: Negative Extrem General: Yes normal to inspection Right upper extremity: normal to inspection Left upper extremity: normal to inspection Right lower extremity: normal to inspection Left lower extremity: normal to inspection Course Reevaluation(s) Reevaluation #1: Patient had questionable infiltration of IV line, therefore patient medicated with Benadryl 25 mg IV push. She had no shortness a breath, difficulty swallowing or throat swelling. Lungs clear to auscultation bilaterally. Her pain has improved in her abdomen, no longer feeling nauseous. Vital signs remained stable. Pending labs Time: 11:13 Reevaluation #2: CT head returns, unremarkable. Cervical spine reveals degenerative changes. CT abdomen revealing dilated fluid-filled structure right lower quadrant possibly related to the bowel. Recommended repeating the scan with oral contrast to better delineate the fluid-filled structures in the pelvis. Repeat CT abdomen ordered. Patient reporting headache, as well as lower abdominal pain, given symptoms, will obtain CT scan. I discussed this finding with my supervising physician, Dr. Spears agrees with the plan. Time: 14:49 Reevaluation #3: Patient extremely hungry, requesting food. We are still awaiting the CT scan with oral contrast. She is already drink the oral contrast. I informed her that it is not ideal for her to eat as should this CT scan come back abnormal, it is not ideal for her to have a full stomach. She understands the risks and consequences of eating. Sign-out given to my colleague, Sammy Platt DNP pending CT abdomen with oral contrast. Time: 16:21 Additional Reevaluation(s): CT/CT abdomen pelvis wo IV con IMPRESSION: 1. No small or large bowel obstruction. No bowel wall thickening or inflammatory change. The previously questioned right lower quadrant fluid-filled structure is indeed a loop of bowel with oral contrast within the lumen. No extravasation of contrast. 2. No intra-abdominal mass, lymphadenopathy, or ascites. Results relate to patient. At this time she defines interest in speaking with [facility] an requests discharge home which is appropriate. Medications Administered Discontinued Medications Generic Name Dose Route Start Last Admin Trade Name Eloisa PRN Reason Stop Dose Admin Acetaminophen 975 mg 07/20/23 14:49 07/20/23 15:02 Acetaminophen 325 Mg Tablet PO 07/20/23 14:50 975 mg ONCE ONE Administration Diatrizoate Meglum/Diatrizoate Sod 30 ml 07/20/23 17:42 07/20/23 17:42 Diatrizoate Meglumine, Sodium 30 Ml Solution PO 07/20/23 17:43 30 ml ONCE ONE Administration Diphenhydramine HCl 25 mg 07/20/23 11:13 07/20/23 11:18 Diphenhydramine Hcl 50 Mg/Ml Vial IVPUSH 07/20/23 11:14 25 mg ONCE ONE Administration Sodium Chloride 1,000 mls @ 999 mls/hr 07/20/23 09:55 07/20/23 13:02 Ns IV 07/20/23 10:55 Infused .Q1H1M ONE Infusion Iohexol 100 ml 07/20/23 11:36 07/20/23 11:36 Iohexol 350 Mg/Ml 100 Ml Infus..Btl IV 07/20/23 11:37 85 ml ONCE ONE Administration Lorazepam 1 mg 07/20/23 12:57 07/20/23 13:02 Lorazepam 1 Mg Tablet PO 07/20/23 12:58 1 mg ONCE ONE Administration Lorazepam 1 mg 07/20/23 14:54 07/20/23 15:03 Lorazepam 1 Mg Tablet PO 07/20/23 14:55 1 mg ONCE ONE Administration Morphine Sulfate 4 mg 07/20/23 09:59 07/20/23 10:53 Morphine Sulfate 4 Mg/Ml Cartridge IVPUSH 07/20/23 10:00 4 mg ONCE ONE Administration Protocol Ondansetron HCl 4 mg 07/20/23 09:59 07/20/23 10:54 Ondansetron Hcl 4 Mg/2 Ml Vial IVPUSH 07/20/23 10:00 4 mg ONCE ONE Administration Medical Decision Making Medical Decision Making MDM Narrative: This is a 43-year-old female presenting to the emergency department with multiple complaints. Patient states that this morning she believes that she had a possible seizure. She states that she has had several health issues involving tongue swelling, burning sensation in her hands for the last year, which was read exacerbated yesterday and she relapsed on alcohol that of which she has been sober for 1 year. She states that she is upset about this. She is unsure if she hit her head or lost consciousness. She does report that she felt as though she was postictal when her mother found her. She denies alcohol withdrawal seizures. She admits to not taking her Lamictal for the last 2 days. On arrival, tachycardic at 101 beats per minute, respirations 24, all other vital signs within normal limits. Patient is nontoxic appearing, she is neurologically intact. She does not appear to be postictal at this point. Head is normocephalic atraumatic however given possibility of head strike, will obtain CT head, CT cervical spine. She does have tenderness palpation diffusely throughout her abdomen with more tenderness in her right lower quadrant. Given right lower quadrant pain, will obtain CT abdomen with IV contrast. Plan: IV fluids, morphine 4 mg IV, Zofran [address] head, CT cervical spine, abdominal and pelvis CT, EKG Differential Diagnosis Differential Diagnoses: The differential diagnosis associated with the presentation includes Gastritis, gastroenteritis, appendicitis-unlikely, malignancy, mass Lab Data MDM Lab Attestation statement: I reviewed the patient's lab results. No leukocytosis, slightly elevated liver transaminases, likely due to alcohol use. First troponin 2.7, does not require repeat given she has no chest pain at this time. Beta quant less than 2. Patient has no evidence of acute kidney injury at this time. Lactic acid 1.9 - not indicative of recent seizure however patient reported possible seizure at 3:00 a.m.. She did not have blood draw until 1045 07/20/23 10:42 07/20/23 10:42 Labs: Lab Results 07/20/23 07/20/23 07/20/23 Range/Units 10:42 10:58 10:59 WBC 7.6 (4.8-10.8) X10*3/uL RBC 5.79 H (4.20-5.50) X10*6/uL Hgb 16.5 H (12.0-16.0) g/dl Hct 47.9 H (37.0-47.0) % MCV 82.7 (80.0-98.0) fL MCH 28.5 (27.0-33.0) pg MCHC 34.4 (31.0-35.0) g/dl RDW 13.7 (11.0-16.0) % Plt Count 224 (160-400) X10*3/uL MPV Not Reportable Immature Gran % (Auto) 0.4 (0.0-0.4) % Neut % (Auto) 66.6 (45-73) % Lymph % (Auto) 24.1 (20-40) % [place] % (Auto) 7.5 (2-11) % Eos % (Auto) 0.7 (0-4) % Baso % (Auto) 0.7 (0-2) % Lymph # (Auto) 1.8 (1.2-4.9) X10*3/uL [place] # (Auto) 0.6 (0.1-1.2) X10*3/uL Eos # (Auto) 0.1 (0.0-0.4) X10*3/uL Baso # (Auto) 0.1 (0.0-0.2) X10*3/uL Abs Immat Gran (auto) 0.03 (0.00-0.03) X10*3/uL Absolute Neuts (auto) 5.1 (2.0-8.3) x10*3/uL Absolute Nucleated RBC 0.000 (0.0-0.012) X10*3/uL Nucleated RBC % (auto) 0.0 (0.0-0.2) /100WBC Smear Tech's Comments VERIFIED Sodium 138 (135-145) mmol/L Potassium 3.9 (3.3-5.1) mmol/L Chloride 101 (96-108) mmol/L Carbon Dioxide 26 (22-29) mmol/L Anion Gap 15 (12-20) BUN 13 (9-16) mg/dL Creatinine 0.73 (0.5-1.4) mg/dL Estim Creat Clear Calc 83.8 Estimated GFR > 60 Random Glucose 93 (60-115) mg/dL Lactic Acid 1.9 (0.5-2.0) mmol/L Calcium 9.7 D (8.4-10.2) mg/dL Magnesium 1.7 (1.6-2.6) mg/dL Total Bilirubin 0.6 (0.0-1.0) mg/dL Direct Bilirubin 0.2 (0.0-0.5) mg/dL AST 49 H (5-31) U/L ALT 39 H (0-31) U/L Alkaline Phosphatase 55 (39-117) U/L Troponin I High Sens < 2.7 (<3.5-17.0) ng/L Total Protein 8.2 H (6.5-8.0) g/dL Albumin 4.7 (3.5-5.0) g/dL Lipase 33 (8-78) U/L Beta HCG, Quant < 2 mIU/mL Urine Color Yellow Urine Appearance Clear Urine pH >= 9.0 (5.0-9.0) Ur Specific [place] 1.020 (1.005-1.025) Urine Protein 30 (1+) H (Neg-Trace) mg/dL Urine Glucose (UA) Negative (Negative) mg/dL Urine Ketones Negative (Negative) mg/dL Urine Blood Negative (Negative) Urine Nitrite Negative (Negative) Ur Leukocyte Esterase Negative (Negative) Urine RBC 0-2 (0-2) /HPF Urine WBC 0-5 (0-5) /HPF Ur Squamous Epith Cells 0-2 (0-2) /HPF Urine Bacteria None Seen (None Seen) Hyaline Casts 0-2 (0-2) /LPF Urine Opiates Screen Not Detected (Not Detect) Urine Fentanyl Screen Not Detected (Not Detect) Ur Barbiturates Screen Not Detected (Not Detect) Ur Phencyclidine Scrn Not Detected (Not Detect) Ur Amphetamines Screen Not Detected (Not Detect) U Benzodiazepines Scrn Not Detected (Not Detect) Urine Cocaine Screen Not Detected (Not Detect) U Marijuana (THC) Screen POSITIVE H (Not Detect) Ethyl Alcohol 41 mg/dL Radiology Impression Discussion of test interpretation with radiology: I have reviewed the radiologist's reading. Radiologist Impression: EXAMINATION: CT HEAD WITHOUT CONTRAST CLINICAL INFORMATION: Seizures. Head strike COMPARISON: None available. TECHNIQUE: Contiguous axial imaging was performed from the skull base to vertex without intravenous administration of contrast. This CT examination was performed using dose optimization techniques as appropriate, variously including the following: *Automated exposure control *Adjustment of mA and/or kV according to patient size (this includes techniques or standardized protocols for targeted exams where dose is matched to indication/reason for exam; i.e. extremities or head) *Use of iterative reconstruction technique DLP: 553 mGy-cm FINDINGS: No intra or extra-axial fluid collection, hemorrhage, mass, or mass effect. Calvarium intact. CT/CT head/brain wo IV con IMPRESSION: Unremarkable study. Dictated By: Williams Long MD EXAMINATION: CT CERVICAL SPINE WITHOUT CONTRAST CLINICAL INFORMATION: Status post seizure with head strike COMPARISON: None available. TECHNIQUE: Axial imaging was performed through the cervical spine. Reformatted coronal and sagittal images are provided for interpretation. This CT examination was performed using dose optimization techniques as appropriate, variously including the following: *Automated exposure control *Adjustment of mA and/or kV according to patient size (this includes techniques or standardized protocols for targeted exams where dose is matched to indication/reason for exam; i.e. extremities or head) *Use of iterative reconstruction technique DLP: 273 mGy-cm FINDINGS: the cervical spine is visualized in its entirety. There is straightening of the normal cervical lordosis. Alignment is otherwise unremarkable. Normal C1/2 articulation. Cervical vertebral body heights are maintained. There are prominent sclerotic changes involving the third, fourth, fifth and superior part of the C6 cervical vertebral bodies. There is mild to moderate disc space narrowing throughout the mid and lower cervical spine. Small osteophytes are present throughout the mid and lower cervical spine. Mild diffuse facet hypertrophy bilaterally. Visualized lung apices are well aerated. CT/CT cervical spine wo IV con IMPRESSION: 1. Mild to moderate degenerative changes of the mid and lower cervical spine. 2. Prominent sclerotic changes involving the third, fourth, fifth and superior part of the C6 cervical vertebral bodies, nonspecific. Fleischner guidelines were followed. Dictated By: Rajinder Tidwell MD EXAMINATION: CT ABDOMEN AND PELVIS WITH CONTRAST CLINICAL INFORMATION: Abdominal pain and vomiting COMPARISON: 04/15/2021 TECHNIQUE: Multidetector volumetric images were obtained from the superior aspect of the liver through the pubic symphysis following administration 85 mL of Omnipaque 350 intravenous contrast. Sagittal and coronal reformatted images were obtained on the technologist's workstation. Oral contrast: No This CT examination was performed using dose optimization techniques as appropriate, variously including the following: *Automated exposure control *Adjustment of mA and/or kV according to patient size (this includes techniques or standardized protocols for targeted exams where dose is matched to indication/reason for exam; i.e. extremities or head) *Use of iterative reconstruction technique DLP: 270 mGy-cm FINDINGS: LUNG BASES: The visualized lung bases are unremarkable. LIVER, GALLBLADDER, AND BILIARY TREE: The liver is normal in size, shape, and attenuation. No focal hepatic lesion or biliary ductal dilatation is present. The gallbladder is unremarkable with no evidence of radiopaque gallstones, gallbladder wall thickening, or obvious pericholecystic inflammatory changes. PANCREAS: Unremarkable. SPLEEN: Unremarkable. ADRENAL GLANDS: Unremarkable. KIDNEYS AND URETERS: The kidneys are normal in size, shape, and attenuation. No hydronephrosis, hydroureter, or calculi seen. No perinephric stranding. BLADDER: Unremarkable. GASTROINTESTINAL TRACT: No bowel obstruction or right or left lower quadrant inflammatory change. Fluid-filled loops of small bowel particularly are noted extending towards the right lower quadrant. There is one such fluid-filled structure in the right lower quadrant with an air-fluid level which may be related to bowel but this is not certain. I would recommend repeating the study with oral contrast to ensure opacification of the small bowel and colon when clinically feasible. ABDOMINAL WALL: No significant hernia is appreciated. LYMPH NODES: Normal. VASCULAR: Unremarkable. PELVIC VISCERA: There is trace fluid in the cul-de-sac. There is a cystic process in the left ovary likely physiologic at 28 mm. Pelvic ultrasound would be helpful to better evaluate the left ovary. Right adnexa appears unremarkable although a small right ovarian cyst likely physiologic is noted at 14 mm transverse. OSSEOUS STRUCTURES: There is degenerative change L4-L5. No fracture or destructive process. CT/CT abdomen pelvis w IV con IMPRESSION: Physiologic process left ovary. Dilated fluid-filled structure right lower quadrant possibly related to bowel. Recommend repeating the scan with oral contrast to better delineate the fluid-filled structures in the pelvis. Fleischner guidelines were followed. Dictated By: Williams Long MD Prescription Management I considered prescription management with: Pain Medication Social Determinants Patient?s care significantly limited by Social Determinants of Health including: Alcoholism and drug addiction in family Discharge Plan Discharge Clinical Impression: Alcohol use disorder, Seizure disorder, Abdominal pain Patient Disposition: Home, Self-Care Additional Instructions: You were seen in the emergency department due to abdominal pain, nausea, and relapse on alcohol. Your labs are reassuring today. Your symptoms improved after receiving IV fluids. Please always take your prescribed medication to treat your seizure disorder, this may have caused you do have a seizure this morning. Your CT of your head does not show any abnormalities. Your CT cervical spine shows degenerative changes. I am recommending you follow-up with your GI specialist. If any new or worsening symptoms occur including but not limited to chest pain, shortness of breath, please return for re-evaluation. Prescriptions: No Action levetiracetam 750 mg tablet 750 mg PO BID Qty: 60 0RF Referrals: Physician,None [Primary Care Provider] - Interventions: ED Discharge Assessment Last Done: 07/20/23 19:56 Discharge Date/Time: 07/20/23 19:56
[2023-07-20 10:52] LABS: Basophils Absolute Auto 0.1 X10*3/uL (0.0-0.2); Basophils Percent Auto 0.7 % (0-2); Eosinophils Absolute Auto 0.1 X10*3/uL (0.0-0.4); Eosinophils Percent Auto 0.7 % (0-4); Hematocrit 47.9 % (37.0-47.0); Hemoglobin 16.5 g/dl (12.0-16.0); Imm Gran Abs Auto 0.03 X10*3/uL (0.00-0.03); Imm Gran Pct Auto 0.4 % (0.0-0.4); Lymphocytes Absolute Auto 1.8 X10*3/uL (1.2-4.9); Lymphocytes Percent Auto 24.1 % (20-40); MANUAL DIFF FLAG SCAN; Mean Corpuscular HGB Conc 34.4 g/dl (31.0-35.0); Mean Corpuscular Hemoglobin 28.5 pg (27.0-33.0); Mean Corpuscular Volume 82.7 fL (80.0-98.0); Monocytes Absolute Auto 0.6 X10*3/uL (0.1-1.2); Monocytes Percent Auto 7.5 % (2-11); Neutrophils Absolute Auto 5.1 x10*3/uL (2.0-8.3); Neutrophils Percent Auto 66.6 % (45-73); PLT CLUMP 1; Red Blood Count 5.79 X10*6/uL (4.20-5.50); Red Cell Distribution Width 13.7 % (11.0-16.0); SCAN SMEAR FLAG 1
[2023-07-20] MEDS: Morphine Sulfate 4 MG/ML CARTRIDGE IVPUSH (10:53)
[2023-07-20] MEDS: 0.9 % Sodium Chloride 1,000 ML 999 ML IV (10:54)
[2023-07-20] MEDS: ondansetron HCL 4 MG/2 ML VIAL IVPUSH (10:54)
[2023-07-20 10:59] VITALS: BP 124/84; PULSE 96; RESP 18; TEMP 36.8; O2SAT 99
[2023-07-20 11:02] LABS: Ethanol 41 mg/dL
[2023-07-20 11:03] LABS: Lactic Acid 1.9 mmol/L (0.5-2.0)
[2023-07-20 11:08] LABS: Appearance Urine Clear; Color Urine Yellow; Glucose Urine UA Negative (Negative); Leukocyte Esterase Urine Negative (Negative); Nitrite Urine Negative (Negative); PH >= 9.0 (5.0-9.0); UMIC TRIGGER UACC YES; Urine Blood Negative (Negative); Urine Ketones Negative (Negative); Urine Protein 30 (1+) mg/dL (Neg-Trace)
[2023-07-20 11:10] LABS: Bacteria Urine None Seen (None Seen); Hyaline Casts Urine 0-2 /LPF (0-2); RBC Urine 0-2 /HPF (0-2); Squamous Epithelial Cell Urine 0-2 /HPF (0-2); WBC Urine 0-5 /HPF (0-5)
[2023-07-20 11:13] LABS: Alanine Aminotransferase 39 U/L (0-31); Albumin Level 4.7 g/dL (3.5-5.0); Alkaline Phosphatase 55 U/L (39-117); Anion Gap 15 (12-20); Aspartate Amino Transferase 49 U/L (5-31); Bilirubin Direct 0.2 mg/dL (0.0-0.5); Bilirubin Total 0.6 mg/dL (0.0-1.0); Blood Urea Nitrogen 13 mg/dL (9-16); Calcium 9.7 mg/dL (8.4-10.2); Carbon Dioxide 26 mmol/L (22-29); Chloride 101 mmol/L (96-108); Creatinine Clr Calc Pharmacy 83.8; Estimated Glomerular Filt Rate > 60; Glucose Random 93 mg/dL (60-115); Lipase 33 U/L (8-78); Magnesium 1.7 mg/dL (1.6-2.6); Potassium 3.9 mmol/L (3.3-5.1); Sodium 138 mmol/L (135-145); Total Protein 8.2 g/dL (6.5-8.0)
[2023-07-20 11:14] LABS: HCG Quantitative < 2 mIU/mL; Troponin-I High Sensitivity < 2.7 ng/L (<3.5-17.0)
[2023-07-20 11:14] LABS: Amphetamine Screen Urine Not Detected (Not Detect); Barbiturates, Urine Not Detected (Not Detect); Benzodiazepines Screen Urine Not Detected (Not Detect); Cannabinoid Screen Urine POSITIVE (Not Detect); Cocaine Screen Urine Not Detected (Not Detect); Fentanyl, urine Not Detected (Not Detect); Opiate Screen Urine Not Detected (Not Detect); Phencyclidine Screen Urine Not Detected (Not Detect)
[2023-07-20 11:15] LABS: White Blood Count 7.6 X10*3/uL (4.8-10.8)
[2023-07-20 11:16] LABS: Platelet Count 224 X10*3/uL (160-400); SLIDE REVIEW VERIFIED
[2023-07-20] MEDS: diphenhydrAMINE HCL 50 MG/ML VIAL 25 MG IVPUSH (11:18)
--- NOTE | 2023-07-20 11:18 | PC.NURSE ---
patient a&ox3, iv inserted, labs drawn, urine obtained,ivf hung per order, pt medicated per order. shortly after medicating pt, pt c/o lt arm itching/welt, this nurse spoke with provider who came to evaluate iv site/ it was determined the iv was patient and she was having a localized reaction to previous medications, IVP benadryl ordered and given per order. pt denies sob and no other redness/rash/hives noted.
[2023-07-20] MEDS: iohexoL 350 MG/ML 100 ML INFUS..BTL IV (11:36)
--- NOTE | 2023-07-20 12:23 | PC.NURSE ---
ivf continue to run slowly
[2023-07-20] MEDS: LORazepam 1 MG TABLET PO ×2 (13:02→15:03)
--- NOTE | 2023-07-20 13:02 | PC.NURSE ---
pt medicated for anxiety per order
[2023-07-20 14:24] VITALS: BP 122/74; PULSE 86; RESP 18; TEMP 36.7; O2SAT 98
--- NOTE | 2023-07-20 14:25 | PC.NURSE ---
patient a&ox3, vss, pt requesting a lunch- provider allowing po fluids but has declined food at this time, pt upset over this, call langley within reach, will continue to monitor.
[2023-07-20] MEDS: Acetaminophen 325 MG TABLET 975 MG PO (15:02)
--- NOTE | 2023-07-20 15:22 | PC.NURSE ---
pt finished drinking po contrast
--- NOTE | 2023-07-20 16:06 | PC.NURSE ---
radiology stated pt to have CT scan between 530-6pm, pt stated tell the provider to cancel the test, I am hungry and I am going to eat this nurse spoke with the provider who discussed with the doctor and is going to speak with the patient but we may give her po to hold her over or discharge the patient.
--- NOTE | 2023-07-20 16:16 | PC.NURSE ---
provider told this nurse to feed the patient
[2023-07-20] MEDS: Diatrizoate Meglumine, Sodium 30 ML SOLUTION PO (17:42)
[2023-07-20 17:57] VITALS: BP 117/68; PULSE 87; RESP 20; TEMP 36.9; O2SAT 97
--- NOTE | 2023-07-20 19:00 | PC.NURSE ---
patient a&ox3, vss, pt requesting to have provider order her another liter of fluid, requesting provider to look in bilateral ears because she can't hear, also wanting all her results, pt also stated she does not want to speak with the care team because she has an elderly mother that needs to pick her up and she isnt going to wait all night. provider was notified of the patient requests.
[2023-07-23 19:38] LABS: Levetiracetam Keppra <2.0 mcg/mL (6.0-46.0)
== END 2023-07-20 19:56 | disposition home or self-care (01) ==
PROVIDERS: Physician Assistant Medical; Emergency Provider Emergency Medicine
DX: F10.10 Alcohol abuse, uncomplicated (principal); Y90.2 Blood alcohol level of 40-59 mg/100 ml; G40.909 Epilepsy, unspecified, not intractable, without status epilepticus; R10.31 Right lower quadrant pain; F17.210 Nicotine dependence, cigarettes, uncomplicated; Z79.899 Other long term (current) drug therapy
CPT/HCPCS: 36415; 70450; 72125; 74176; 74177; 80048; 80076; 80175; 80177; 80307; 81001; 83605; 83690; 83735; 84484; 84702; 85025; 93005; 96361; 96374; 96375; 99285; J1200; J2270; J2405; Q9967

== ENCOUNTER → 2023-07-20 09:52 | Outpatient (BNV) | payer MEDICARE, MEDICAID, SELFPAY | PROVIDERS: Emergency Provider Emergency Medicine; Visit Provider Internal Medicine Cardiovascular Disease | DX: R00.0 Tachycardia, unspecified (principal) | CPT/HCPCS: 93010 ==

== ENCOUNTER 2024-12-15 06:09 | Inpatient (IN) | payer MEDICARE, MEDICAID, SELFPAY ==
[2024-12-15] VITALS (8 sets, daily range): BP systolic 110–146; BP diastolic 59–97; PULSE 81–84; RESP 11–18; TEMP 36.5–37.2; O2SAT 94–98; BMI 19.5; BMI 19.1
--- NOTE | 2024-12-15 | ECG_ITS ---
Test Reason : SEIZURE Blood Pressure : */* mmHG Vent. Rate : 66 BPM Atrial Rate : 66 BPM P-R Int : 178 ms QRS Dur : 84 ms QT Int : 418 ms P-R-T Axes : 72 76 46 degrees QTcB Int : 438 ms Sinus rhythm with marked sinus arrhythmia Otherwise normal ECG When compared with ECG of 20-Jul-2023 09:52, No significant change was found Referred By: Generic ED Physician Electronically Signed By: ALBARO TATE
--- NOTE | ~2024-12-15 | CT_ITS ---
EXAMINATION: CT ABDOMEN PELVIS WITHOUT IV CONTRAST HISTORY: ab pain COMPARISON: Comparison is made with the prior examination dated 07/20/2023. TECHNIQUE: CT scan of the abdomen and pelvis was performed without contrast using standard departmental protocol. Coronal and sagittal reformatted images were generated and reviewed. Oral contrast material was not administered at the request of the referring physician. This CT exam was performed with one or more of the following dose reduction techniques: automated exposure control, adjustment of the mA and/or kV according to patient size, use of iterative reconstruction technique. DLP: 228 mGy-cm FINDINGS: LOWER CHEST: The visualized lung bases are clear. There is no pleural effusion. CARDIOVASCULATURE: The heart is normal in size. There is no pericardial effusion. LIVER: The liver is normal in size and contour. The liver has an unremarkable unenhanced appearance. GALLBLADDER / BILE DUCTS: The gallbladder is unremarkable. There is no intra or extrahepatic biliary ductal dilatation. SPLEEN: The spleen is normal in size and has an unremarkable unenhanced appearance. PANCREAS: There is mild dilatation of the pancreatic duct in the body without change. Evaluation of the pancreas is otherwise extremely limited due to lack of intravenous contrast. ADRENAL GLANDS: Unremarkable. KIDNEYS/RETROPERITONEUM: No renal calculi are identified. There is no hydronephrosis. LYMPH NODES: No retroperitoneal lymphadenopathy is identified in the abdomen or pelvis. VASCULATURE: The abdominal aorta is normal in caliber. MESENTERY/PERITONEUM: No free fluid. No masses. There is no free intraperitoneal gas. STOMACH: The stomach is unremarkable. SMALL BOWEL: The small bowel is normal in caliber. COLON: The colon is unremarkable. APPENDIX: The appendix is not seen, however no inflammatory changes are seen adjacent to the cecum. URINARY BLADDER/PELVIC ORGANS: The urinary bladder is collapsed, limiting evaluation. The uterus has an unremarkable unenhanced appearance. BONES / SOFT TISSUES: There is degenerative disc disease at L4-5. There are scattered sclerotic foci within the pelvic bones, many of which were present on a prior study dated 04/15/2021, most consistent with bone islands. CT/CT abdomen pelvis wo IV con IMPRESSION: No acute abnormality is identified. Incidental findings as discussed above. Electronically signed by: Peter Waddell MD 12/16/2024 11:00 AM EDT RP
--- NOTE | ~2024-12-15 | XR_ITS ---
CLINICAL HISTORY: upper back pain Chest radiographs, 2 views Comparison: None Findings: The cardiomediastinal silhouette is not enlarged. Pulmonary vascularity is unremarkable. No focal consolidation or effusion. No pneumothorax. Mild multilevel thoracic discogenic degenerative disease. No vertebral compression deformities are identified. Old ununited distal right clavicle fracture versus surgical resection. IMPRESSION: No acute cardiopulmonary findings. Mild multilevel thoracic discogenic degenerative disease. No vertebral compression deformities are identified. This document has been electronically signed by: Shaggy Heath DO on 12/15/2024 10:41:54
[2024-12-15 06:59] LABS: MANUAL DIFF FLAG NO
[2024-12-15 07:06] LABS: Hematocrit 43.0 % (37.0-47.0); Hemoglobin 14.9 g/dl (12.0-16.0); Imm Gran Abs Auto 0.07 X10*3/uL (0.00-0.03); Imm Gran Pct Auto 0.8 % (0.0-0.4); Lymphocytes Absolute Auto 1.7 X10*3/uL (1.2-4.9); Mean Corpuscular HGB Conc 34.7 g/dl (31.0-35.0); Mean Corpuscular Hemoglobin 29.9 pg (27.0-33.0); Mean Corpuscular Volume 86.2 fL (80.0-98.0); NRBC Abs Auto 0.000 X10*3/uL (0.0-0.012); NRBC Pct Auto 0.0 /100WBC (0.0-0.2); Platelet Count 153 X10*3/uL (160-400); Red Blood Count 4.99 X10*6/uL (4.20-5.50); White Blood Count 8.3 X10*3/uL (4.8-10.8)
--- NOTE | 2024-12-15 07:25 | ED.ALCOHOL ---
HPI - Alcohol General Chief Complaint: ETOH/Substance Use Stated Complaint: Alcohol Detox Time Seen by Provider: 12/15/24 07:15 Source: patient Mode of arrival: ambulatory Limitations: no limitations History of Present Illness ED Provider: DR. Haywood HPI narrative: 44-year-old female with past medical history significant for alcohol abuse, and seizure patient has been bingeing on drinking alcohol for the past month last drink was 19:00 last night patient decided to stop drinking, patient usually drank heavy liquor mostly vodka, came in today for seeing black dots which is usually aura for seizure especially patient is unable to take her seizure medication for the past month due to drinking, patient is complaining of generalized body ache and headache, upper back pain patient not sure if she fell recently or not. Patient is complaining of tremors, feeling anxious, seeing that is spots, feels she is going to have a seizure. Related Data Home Medications ?Medication ?Instructions ?Recorded ?Confirmed dextroamphetamine-amphetamine ER 1 cap PO BID 12/15/24 12/15/24 20 mg 24hr capsule,extend release (Adderall XR) ibuprofen 800 mg tablet 800 mg PO DAILY PRN Pain 12/15/24 12/15/24 lamotrigine 100 mg tablet 100 mg PO DAILY 12/15/24 12/15/24 lamotrigine 100 mg tablet 150 mg PO BEDTIME 12/15/24 12/15/24 Allergies Allergy/AdvReac Type Severity Reaction Status Date / Time Penicillins AdvReac Rash Verified 12/15/24 06:39 Review of Systems Review of Systems: All other systems are reviewed and are negative Constitutional: Reports as per HPI and Reports no additional constitutional complaints Eyes: Reports as per HPI and Reports no additional eye complaints Reports system reviewed and no additional complaints, except as documented Cardiovascular: Reports as per HPI and Reports no additional cardiovascular complaints Respiratory: Reports as per HPI and Reports no additional respiratory complaints Gastrointestinal: Reports as per HPI and Reports no additional gastrointestinal complaints Genitourinary: Reports no additional female genitourinary complaints Musculoskeletal: Reports no additional musculoskeletal complaints Skin/Breast: Reports system reviewed and no additional complaints, except as docu Psychiatric: Reports no additional psychiatric complaints Endocrine: Reports no additional endocrine complaints Hematologic/Lymphatic: Reports no additional hematologic/lymphatic complaints Allergic/Immunologic: Reports no additional allergic/immunologic complaints Reports system reviewed and no additional complaints, except as documented and Reports Abnormal speech present PMFSH Past Medical History Medical History Alcohol use disorder Cigarette smoker one half pack a day or less Irregular periods/menstrual cycles Depression with anxiety Chronic heartburn Hx of pancreatitis Seizure disorder Hx of Surgical History [place] teeth extracted Family History Family History Other No significant family history Social History Social History Housing: Other (mobile home with mother) Alcohol intake: current Alcohol intake frequency: 3 or more drinks per day Alcohol type: hard liquor Patient Tobacco Use Status: Never used Tobacco Cigarette Packs Per Day: 0.5 Smoked in Last 30 Days: Yes Use of substances other than those prescribed or required for medical reasons: Yes Substance Use Type: Marijuana Advance Directives: No Advance Directives Information Provided: Yes Patient : No Current occupational status: unemployed Physical Exam ED Vital Signs: Vital Signs - 24 hr 12/15/24 06:35 12/15/24 06:41 12/15/24 10:55 Temperature 98.5 F Pulse Rate 81 84 Respiratory Rate 11 L 11 L 18 Blood Pressure 124/89 Pulse Oximetry 98 98 Oxygen Delivery Method Room Air Room Air BMI result Body Mass Index 19.5 Vital signs have been reviewed and appear to be correct. Blood pressure elevated. Heart rate normal. Respiratory rate normal. Temperature normal. Oxygen saturation normal. Appearance: Alert. Oriented X3. No acute distress. Head: Normal external exam. Normocephalic. Atraumatic. No Ko signs noted. No raccoon eyes noted Eyes: PERRLA. EOMI. Conjunctiva and sclera normal. Eyelids normal. ENT: TM's Normal. Pharynx normal. Uvula midline. Moist mucous membranes. No trismus noted. No drooling noted. No muffled voice noted. Neck: Normal inspection. Neck supple. FROM. No adenopathy. Thyroid Normal. No meningeal signs. No neck mass noted. CVS: Normal heart rate and rhythm. Heart sound normal. No murmurs noted. Pulses normal throughout. Respiratory: No respiratory distress. Painless inspiration. Breath sounds normal. No wheezes/rales/rhonchi noted. Chest nontender. No accessory muscle usage noted or decreased air movement noted. Abdomen: Soft and nontender. Bowel sounds normal in all 4 quadrants. No distention noted. No organomegaly noted. No visible injury noted. Back: No CVA tenderness. Full range of motion noted. Skin: Skin warm and dry. Normal skin color. Normal skin turgor. No rashes/lesions/lacerations noted. Extremities: No lower extremity edema. Extremities exhibit normal range of motion. Extremities nontender. Neuro: Oriented X 3, diffuse involuntary tremors with tongue fasciculation. Cranial nerve exam: II-XII are grossly intact No motor deficit. No sensory deficit. Reflexes normal. Course Reevaluation(s) Reevaluation #1: alcohol withdrawal with history of seizure, patient is having some visual hallucination with CIWA score of 16, phenobarb was started, will admit the patient for further management of alcohol withdrawal and risk of seizure. Time: 10:46 Medical Decision Making Differential Diagnosis Differential Diagnoses: The differential diagnosis associated with the presentation includes ( DTs, alcohol withdrawal, electrolyte derangement, severe anemia.) Admission/Observation Consideration of admission/observation: Escalation of care including admission/observation considered Consult Healthcare Provider Management of the patient was discussed with: Hospitalist ( Dr. Toussaint) Lab Data MDM Lab Attestation statement: I reviewed the patient's lab results. 12/15/24 06:54 12/15/24 06:54 Labs: Lab Results 12/15/24 12/15/24 Range/Units 06:54 10:54 WBC 8.3 (4.8-10.8) X10*3/uL RBC 4.99 (4.20-5.50) X10*6/uL Hgb 14.9 (12.0-16.0) g/dl Hct 43.0 (37.0-47.0) % MCV 86.2 (80.0-98.0) fL MCH 29.9 (27.0-33.0) pg MCHC 34.7 (31.0-35.0) g/dl RDW 15.9 (11.0-16.0) % Plt Count 153 L D (160-400) X10*3/uL MPV 8.7 L (9.4-12.3) fL Immature Gran % (Auto) 0.8 H (0.0-0.4) % Neut % (Auto) 69.6 (45-73) % Lymph % (Auto) 20.8 (20-40) % [place] % (Auto) 7.6 (2-11) % Eos % (Auto) 0.5 (0-4) % Baso % (Auto) 0.7 (0-2) % Lymph # (Auto) 1.7 (1.2-4.9) X10*3/uL [place] # (Auto) 0.6 (0.1-1.2) X10*3/uL Eos # (Auto) 0.0 (0.0-0.4) X10*3/uL Baso # (Auto) 0.1 (0.0-0.2) X10*3/uL Abs Immat Gran (auto) 0.07 H (0.00-0.03) X10*3/uL Absolute Neuts (auto) 5.8 (2.0-8.3) x10*3/uL Absolute Nucleated RBC 0.000 (0.0-0.012) X10*3/uL Nucleated RBC % (auto) 0.0 (0.0-0.2) /100WBC Sodium 137 (135-145) mmol/L Potassium 3.7 (3.3-5.1) mmol/L Chloride 101 (96-108) mmol/L Carbon Dioxide 27 (22-29) mmol/L Anion Gap 13 (12-20) BUN 14 (9-16) mg/dL Creatinine 0.63 (0.5-1.4) mg/dL Estim Creat Clear Calc 91.6 Estimated GFR > 60 Random Glucose 97 (60-115) mg/dL Calcium 8.7 D (8.4-10.2) mg/dL Magnesium 1.5 L (1.6-2.6) mg/dL Total Bilirubin 0.6 (0.0-1.0) mg/dL AST 194 H (5-31) U/L ALT 110 H (0-31) U/L Alkaline Phosphatase 60 (39-117) U/L Total Protein 6.4 L (6.5-8.0) g/dL Albumin 3.9 (3.5-5.0) g/dL Urine Color Yellow Urine Appearance Clear Urine pH >= 9.0 (5.0-9.0) Ur Specific [place] 1.020 (1.005-1.025) Urine Protein 30 (1+) H (Neg-Trace) mg/dL Urine Glucose (UA) Negative (Negative) mg/dL Urine Ketones Negative (Negative) mg/dL Urine Blood Negative (Negative) Urine Nitrite Negative (Negative) Ur Leukocyte Esterase Trace H (Negative) Urine RBC 0-2 (0-2) /HPF Urine WBC 6-10 H (0-5) /HPF Ur Squamous Epith Cells 0-2 (0-2) /HPF Urine Bacteria None Seen (None Seen) Hyaline Casts 0-2 (0-2) /LPF Urine Opiates Screen Not Detected (Not Detect) Ur Buprenorphine Scrn Not Detected (Not Detect) ng/mL Ur Oxycodone Screen Not Detected (Not Detect) ng/mL Urine Methadone Screen Not Detected (Not Detect) ng/mL Urine Fentanyl Screen Not Detected (Not Detect) Ur Barbiturates Screen POSITIVE H (Not Detect) Ur Phencyclidine Scrn Not Detected (Not Detect) Ur Amphetamines Screen Not Detected (Not Detect) U Benzodiazepines Scrn POSITIVE H (Not Detect) Urine Cocaine Screen Not Detected (Not Detect) U Marijuana (THC) Screen POSITIVE H (Not Detect) Ethyl Alcohol < 10 mg/dL Independent Interpretation I performed an independent interpretation of an: Plain X-Ray ( chest: No acute intrathoracic pathology.) Radiology Impression Discussion of test interpretation with radiology: I have reviewed the radiologist's reading. Medications Administered Generic Name Dose Route Start Last Admin Trade Name Freq PRN Reason Stop Dose Admin Enoxaparin Sodium 40 mg 12/15/24 15:00 12/15/24 15:22 Enoxaparin Sodium 40 Mg/0.4 Ml Syringe SUBCUT 40 mg Q24H ALICIA Administration Folic Acid 1 mg 12/15/24 14:45 12/15/24 15:22 Folic Acid 1 Mg Tablet PO 12/18/24 14:44 1 mg DAILY ALICIA Administration Magnesium Sulfate 2 gm in 50 mls @ 25 mls/hr 12/15/24 14:44 12/15/24 15:22 Magnesium Sulfate/H2o IV 12/15/24 16:43 25 mls/hr ONCE ONE Administration Multivitamins/Vitamin C 1 tab 12/15/24 14:45 12/15/24 15:22 Multivitamin Tablet PO 12/18/24 14:44 1 tab DAILY ALICIA Administration Nicotine 14 mg 12/15/24 14:45 12/15/24 15:22 Nicotine 14 Mg Patch.Td24 TRANSDERMA Not Given DAILY ALICIA Thiamine HCl 100 mg 12/15/24 14:45 12/15/24 15:22 Thiamine Hcl 100 Mg Tablet PO 12/18/24 14:44 100 mg DAILY ALICIA Administration Discontinued Medications Generic Name Dose Route Start Last Admin Trade Name Eloisa PRN Reason Stop Dose Admin Al Hydroxide/Mg Hydroxide 30 ml 12/15/24 07:21 12/15/24 07:32 Magnesium Hydrox/Alum Hydrox 30 Ml Oral.Susp PO 12/15/24 07:22 30 ml ONCE ONE Administration Diazepam 2.5 mg 12/15/24 07:21 12/15/24 07:32 Diazepam 10 Mg/2 Ml Cartridge IVPUSH 12/15/24 07:22 2.5 mg STAT STA Administration Famotidine 20 mg 12/15/24 07:21 12/15/24 07:32 Famotidine/Pf 20 Mg/2 Ml Vial IVPUSH 12/15/24 07:22 20 mg ONCE ONE Administration Sodium Chloride 1,000 mls @ 999 mls/hr 12/15/24 07:21 12/15/24 08:35 Ns IV 12/15/24 08:21 Infused .Q1H1M ONE Infusion Ibuprofen 400 mg 12/15/24 10:12 12/15/24 10:55 Ibuprofen 400 Mg Tablet PO 12/15/24 10:13 400 mg ONCE ONE Administration Lamotrigine 200 mg 12/15/24 07:24 12/15/24 07:43 Lamotrigine 100 Mg Tablet PO 12/15/24 07:25 200 mg ONCE ONE Administration Lamotrigine 100 mg 12/15/24 13:00 12/15/24 14:08 Lamotrigine 100 Mg Tablet PO Not Given DAILY ALICIA Phenobarbital Sodium 169 mg 12/15/24 08:00 12/15/24 07:43 Phenobarbital Sodium 130 Mg/Ml Im Once IM 12/15/24 08:01 169 mg ONCE ONE Administration Protocol Phenobarbital Sodium 126.1 mg 12/15/24 11:00 12/15/24 14:08 Phenobarbital Sodium 130 Mg/Ml Vial Im Q3hx2 IM 12/15/24 14:01 126.1 mg Q3H ALICIA Administration Protocol Discharge Plan Discharge Clinical Impression: Alcohol withdrawal Patient Disposition: Admitted As Inpatient
[2024-12-15] MEDS: diazePAM 10 MG/2 ML CARTRIDGE 2.5 MG IVPUSH (07:32)
[2024-12-15] MEDS: Magnesium Hydrox/Alum Hydrox 30 ML ORAL.SUSP PO (07:32)
--- NOTE | 2024-12-15 07:38 | PC.NURSE ---
pt a&ox3, iv previously inserted, labs previously drawn. ekg performed, groundwater monitoring technician applied- nsr on monitor, vss, seizure precautions applied, pt medicated per orders, rr equal/non labored-lungs clear, pt aware we need a urine, call langley within reach, plan of care ongoing
[2024-12-15] MEDS: PHENobarbitaL sodium 130 MG/ML IM ONCE 169 MG IM (07:43)
[2024-12-15 07:56] LABS: Alanine Aminotransferase 110 U/L (0-31); Albumin Level 3.9 g/dL (3.5-5.0); Alkaline Phosphatase 60 U/L (39-117); Anion Gap 13 (12-20); Aspartate Amino Transferase 194 U/L (5-31); Blood Urea Nitrogen 14 mg/dL (9-16); Calcium 8.7 mg/dL (8.4-10.2); Carbon Dioxide 27 mmol/L (22-29); Chloride 101 mmol/L (96-108); Creatinine Clr Calc Pharmacy 91.6; Estimated Glomerular Filt Rate > 60; Potassium 3.7 mmol/L (3.3-5.1); Sodium 137 mmol/L (135-145); Total Protein 6.4 g/dL (6.5-8.0)
[2024-12-15] MEDS: PHENobarbitaL sodium 130 MG/ML VIAL IM Q3Hx2 126.1 MG IM ×2 (10:55→14:08)
[2024-12-15 11:06] LABS: Appearance Urine Clear; Glucose Urine UA Negative (Negative); PH >= 9.0 (5.0-9.0); Specific Gravity - Urine 1.020 (1.005-1.025); UMIC TRIGGER UACC YES
[2024-12-15 11:08] LABS: UACC Culture Trigger YES
[2024-12-15 11:19] LABS: Cannabinoid Screen Urine POSITIVE (Not Detect)
--- NOTE | 2024-12-15 11:38 | PC.NURSE ---
patient wanting to leave ama, states she is angry that she hasnt been given any food, this nurse and the tech had offered the patient many different options of food available in the ED which she declined and stated I want real food, not the shit you serve to homeless people this nurse additionally called the kitchen as well as a tech for a stat food tray which has not yet been delivered. provider was notified of current situation and the charge nurse is well aware also.
--- NOTE | 2024-12-15 12:05 | PHA.MEDREC ---
Addendum entered by Aminata Purcell RPh 12/15/24 12:18: Reviewed by [facility], PAtient takes 100mg lamotrigine QAM and 150mg QPM Original Note: Pharmacy Consult ? Medication Reconciliation Pharmacy has completed the medication reconciliation. Spoke with pt and she confirmed she takes the Adderall 20mg tab an Lamotrigine 100mg tabs taking 1 tab (100mg) in the AM and 1/2 tab (150mg) before bed and states she is not taking anything else at this time. Pt was taking chlordiazepoxide but didnt like how it made her feel and she stopped it. Pt states she has some old Ibuprofen 800mg tabs she takes 1 as needed for pain.
--- NOTE | 2024-12-15 13:06 | PM.IMHP ---
History of Present Illness Date of Service: 12/15/24 Attending physician on admission: Selina Toussaint Chief Complaint: Alcohol withdrawal Pt is a 44-year-old female with a PMH significant for?seizure disorder on lamotrigine, alcohol use disorder with hx of withdrawal, GERD, and ADHD who presents to the ED seeking alcohol detox after drinking two sleeves of vodka daily for the past 3 weeks after being sober for the previous 2 years. Pt is vague on what prompted the relapse, though apparently it involves drinking with her . Attempted to detox on her own for the past 1-2 days, but experienced abdominal pain, nausea, vomiting, diaphoresis, tremors, and was seeing black dots, so presented to the hospital to help with detox. Reports he has had similar presentations to [facility] in [place], though timing and duration of stay is unclear. Pt is a vague historian. Also reports dark colored stools for the past few days. Currently complains of mild diffuse abdominal pain, though otherwise no significant complaints. Currently denies headache, nausea, vomiting, or diaphoresis. No increase in anxiety. Denies auditory or visual hallucinations, or tactile disturbances. No chest pain/pressure, palpitations. Denies shortness or breath or difficulty breathing. Reports seizure activity began a few years ago after she left a detox facility but had not yet started drinking again. Has been inconsistent with lamotrigine, though reports has not had a known seizure for the past two years. Has not followed with a PCP in 9 years. In the ED pt's vitals stable. Labs were significant for mild thrombocytopenia of 153, and with AST 184 and ALT 110. No leukocytosis. Stable H&H. No significant electrolyte abnormalities. Renal function WNL. UA not consistent with UTI. Ethyl alcohol undetectable. Tox screen positive for barbiturates, benzos, and marijuana. CXR showed no acute cardiopulmonary findings, though showed mild multilevel thoracic discogenic degenerative disease. EKG demonstrated sinus rhythm with sinus arrhythmia though no evidence of significant ST elevations or depressions. Pt was treated in the ED with diazepam, Protonix, Maalox, IVF, lamotrigine, ibuprofen, and started on phenobarb protocol. Pt is admitted to the hospital for treatment and further evaluation of acute alcohol withdrawal requiring phenobarb protocol. Review of Systems Review of Systems: Negative except for that which is stated in the HPI. [facility] Medical History Alcohol use disorder Cigarette smoker one half pack a day or less Irregular periods/menstrual cycles Depression with anxiety Chronic heartburn Hx of pancreatitis Seizure disorder Hx of Family History Other No significant family history Surgical History Mad[place] teeth extracted Social History Housing: Other (mobile home with mother) Alcohol intake: current Alcohol intake frequency: 3 or more drinks per day Alcohol type: hard liquor Patient Tobacco Use Status: Current everyday Tobacco user Cigarette Packs Per Day: 0.5 Smoked in Last 30 Days: Yes Use of substances other than those prescribed or required for medical reasons: Yes Substance Use Type: Marijuana Advance Directives: No Advance Directives Information Provided: Yes Patient : No Current occupational status: unemployed Meds Allergies Allergy/AdvReac Type Severity Reaction Status Date / Time Penicillins AdvReac Rash Verified 12/15/24 06:39 Active Medications: Current Medications Lamotrigine (Lamotrigine 100 Mg Tablet) 100 mg PO DAILY [facility] Lamotrigine (Lamotrigine 25 Mg Tablet) 150 mg PO BEDTIME [facility] Pharmacy Consult (Consult Rx Etoh Phenob Im/Po) 1 each MISCELLANE ONCE PRN; Protocol PRN Reason: Consult order Phenobarbital (Phenobarbital 15 Mg Tablet) 45 mg PO BID [facility]; Protocol Stop: 12/17/24 09:01 Phenobarbital (Phenobarbital 15 Mg Tablet) 15 mg PO BID [facility]; Protocol Stop: 12/19/24 09:01 Phenobarbital (Phenobarbital 15 Mg Tablet) 15 mg PO DAILY [facility]; Protocol Stop: 12/21/24 09:01 Phenobarbital Sodium (Phenobarbital Sodium 130 Mg/Ml Vial Im Q3hx2) 126.1 mg IM Q3H [facility]; Protocol Stop: 12/15/24 14:01 Last Admin: 12/15/24 10:55 Dose: 126.1 mg Home Medications ?Medication ?Instructions ?Recorded ?Confirmed ?Last Taken ?Type dextroamphetamine-amphetamine ER 1 cap PO BID 12/15/24 12/15/24 3 Days Ago History 20 mg 24hr capsule,extend release ~12/12/24 (Adderall XR) ibuprofen 800 mg tablet 800 mg PO DAILY PRN Pain 12/15/24 12/15/24 Unknown History lamotrigine 100 mg tablet 100 mg PO DAILY 12/15/24 12/15/24 3 Days Ago History ~12/12/24 lamotrigine 100 mg tablet 150 mg PO BEDTIME 12/15/24 12/15/24 3 Days Ago History ~12/12/24 Physical Exam Vital Signs and Narrative: Vital Signs: Last Vital Signs Temp 98.5 F 12/15/24 06:35 Pulse 84 12/15/24 06:41 Resp 11 L 12/15/24 06:41 BP 124/89 12/15/24 06:41 Pulse Ox 98 12/15/24 06:41 O2 Del Method Room Air 12/15/24 06:41 BMI result Body Mass Index 19.5 General: AOx3, no acute distress Resp: CTA bilaterally CVS: S1, S2, RRR GI: +BS, no distention, mild diffuse tenderness Skin: Warm, dry Neuro: Cranial nerves II-XII grossly intact bilaterally. Motor grossly intact bilaterally. No upper extremity tremors noted. No tongue fasciculations noted. Extremities: No edema Psych: Appropriate affect Results Labs 12/15/24 06:54 12/15/24 06:54 Labs: Laboratory Results - last 24 hr 12/15/24 12/15/24 06:54 10:54 MCV 86.2 MCH 29.9 MCHC 34.7 RDW 15.9 Plt Count 153 L D MPV 8.7 L Immature Gran % (Auto) 0.8 H Neut % (Auto) 69.6 Lymph % (Auto) 20.8 [place] % (Auto) 7.6 Eos % (Auto) 0.5 Baso % (Auto) 0.7 Lymph # (Auto) 1.7 [place] # (Auto) 0.6 Eos # (Auto) 0.0 Baso # (Auto) 0.1 Abs Immat Gran (auto) 0.07 H Absolute Neuts (auto) 5.8 Absolute Nucleated RBC 0.000 Nucleated RBC % (auto) 0.0 Anion Gap 13 Estim Creat Clear Calc 91.6 Estimated GFR > 60 Random Glucose 97 Calcium 8.7 D Total Bilirubin 0.6 AST 194 H ALT 110 H Alkaline Phosphatase 60 Total Protein 6.4 L Albumin 3.9 Urine Color Yellow Urine Appearance Clear Urine pH >= 9.0 Ur Specific [place] 1.020 Urine Protein 30 (1+) H Urine Glucose (UA) Negative Urine Ketones Negative Urine Blood Negative Urine Nitrite Negative Ur Leukocyte Esterase Trace H Urine RBC 0-2 Urine WBC 6-10 H Ur Squamous Epith Cells 0-2 Urine Bacteria None Seen Hyaline Casts 0-2 Urine Opiates Screen Not Detected Ur Buprenorphine Scrn Not Detected Ur Oxycodone Screen Not Detected Urine Methadone Screen Not Detected Urine Fentanyl Screen Not Detected Ur Barbiturates Screen POSITIVE H Ur Phencyclidine Scrn Not Detected Ur Amphetamines Screen Not Detected U Benzodiazepines Scrn POSITIVE H Urine Cocaine Screen Not Detected U Marijuana (THC) Screen POSITIVE H Ethyl Alcohol < 10 Assessment and Plan (1) Alcohol withdrawal: Status: Acute Plan Pt is a 44-year-old female with a PMH significant for?seizure disorder on lamotrigine, alcohol use disorder with hx of withdrawal, GERD, and ADHD who presents to the ED seeking alcohol detox after drinking two sleeves of vodka daily for the past 3 weeks after being sober for the previous 2 years. Pt is admitted to the hospital for treatment and further evaluation of acute alcohol withdrawal requiring phenobarb protocol. Acute alcohol withdrawal Pt drinking 2 sleeves of vodka daily, reports tremors, N/V, anxiety, seeing black dots, diaphoresis, tremors when tried to detox on her own Continue Phenobarb protocol Daily multivitamin, folic acid, thiamine, famotidine Follow lytes, Mag, BMP CIWA scale Addiction medicine consult Monitor on telemetry Hypomagnesmia Mag slightly low at 1.5 Will supplement with mag 2g IV Trend labs Black colored stools Self-reported x2-3 days Current H&H 14.9/43.0 Follow CBC Stool guaiac has not yet been done; consider testing if there is a drop in H&H Seizure disorder Question of compliance with home meds Continue lamotrigine Seizure precautions ADHD Continue Adderall Full Code Attending:? DVT Prophylaxis: Lovenox Pt will require a hospitalization of at least two nights for treatment of? with . Quality Stroke Does the patient have a stroke diagnosis?: No VTE Prior VTE?: No VTE Risk Level:: Medical - moderate - high VTE Device Contraindication: Treatment Not Indicated VTE Drug Contraindication: N/A - Med Ordered
[2024-12-15 13:29] LABS: Magnesium 1.5 mg/dL (1.6-2.6)
[2024-12-15] MEDS: Magnesium Sulfate/H2O 2 GM/50 ML PIGGYBACK IV (15:22)
[2024-12-15] MEDS: Lactated Ringers 1,000 ML 100 ML IVCONT (16:41)
--- NOTE | 2024-12-15 16:43 | PC.NURSE ---
ivf started per order
[2024-12-15] MEDS: 0.9 % Sodium Chloride Flush 3 ML SYRINGE IVFLUSH (20:16)
[2024-12-15] MEDS: diazePAM 10 MG/2 ML CARTRIDGE 7.5 MG IVPUSH (23:36)
[2024-12-16] VITALS (11 sets, daily range): BP systolic 120–185; BP diastolic 62–106; PULSE 66–128; RESP 18–20; TEMP 36.1–37.1; O2SAT 97–100
--- NOTE | 2024-12-16 | ECG_ITS ---
Test Reason : tachy Blood Pressure : */* mmHG Vent. Rate : 114 BPM Atrial Rate : 114 BPM P-R Int : 140 ms QRS Dur : 74 ms QT Int : 338 ms P-R-T Axes : 85 81 67 degrees QTcB Int : 465 ms Sinus tachycardia Right atrial enlargement Borderline ECG When compared with ECG of 16-Dec-2024 08:39, Vent. rate has increased by 52 bpm Referred By: Andre Crump Electronically Signed By: SHANTELL HAYWARD MD
[2024-12-16] MEDS: Lactated Ringers 1,000 ML 100 ML IVCONT ×3 (02:45→16:55)
--- NOTE | 2024-12-16 04:54 | PC.NURSE ---
Pt having episodes of nausea with vomiting, abdominal pain. Hyperactive when awake. CIWA score of 14 at 0000 requiring a dose of IV Valium for withdrawl symptoms. Hyperactivity decreasing at this time and CIWA score improved. Will continue to assess for s/s of withdrawl.
[2024-12-16 07:28] LABS: Anion Gap 12 (12-20); Blood Urea Nitrogen 8 mg/dL (9-16); Calcium 8.4 mg/dL (8.4-10.2); Carbon Dioxide 26 mmol/L (22-29); Chloride 104 mmol/L (96-108); Creatinine Clr Calc Pharmacy 84.6; Estimated Glomerular Filt Rate > 60; Magnesium 2.0 mg/dL (1.6-2.6); Potassium 4.6 mmol/L (3.3-5.1); Sodium 137 mmol/L (135-145)
--- NOTE | 2024-12-16 08:44 | ECG_ITS ---
Test Reason : st elevation Blood Pressure : */* mmHG Vent. Rate : 62 BPM Atrial Rate : 62 BPM P-R Int : 170 ms QRS Dur : 82 ms QT Int : 404 ms P-R-T Axes : 59 75 46 degrees QTcB Int : 410 ms Normal sinus rhythm Normal ECG When compared with ECG of 15-Dec-2024 07:21, No significant change was found Referred By: Stacey Javier Electronically Signed By: SHANTELL HAYWARD MD
--- NOTE | 2024-12-16 09:22 | MHC.CM.PN ---
Addendum entered by Magda Noland RN 12/16/24 11:13: CM ATTEMPTED TO MEET W/PT HOWEVER PT DECLINED TO SPEAK W/CM UNTIL SHE RECEIVES VANILLA ICE CREAM, IMM 12/16/24 DELIVERED. Original Note: CM ATTEMPTED TO MEET W/PT HOWEVER PER NSG STAFF PT IS CURRENTLY VOMITING, CM TO REVISIT.
[2024-12-16] MEDS: 0.9 % Sodium Chloride Flush 3 ML SYRINGE IVFLUSH ×3 (09:28→20:35)
[2024-12-16 10:00] LABS: Hematocrit 46.4 % (37.0-47.0); Hemoglobin 15.9 g/dl (12.0-16.0); Mean Corpuscular HGB Conc 34.3 g/dl (31.0-35.0); Mean Corpuscular Hemoglobin 30.3 pg (27.0-33.0); Mean Corpuscular Volume 88.4 fL (80.0-98.0); NRBC Abs Auto 0.000 X10*3/uL (0.0-0.012); NRBC Pct Auto 0.0 /100WBC (0.0-0.2); Platelet Count 155 X10*3/uL (160-400); Red Blood Count 5.25 X10*6/uL (4.20-5.50); White Blood Count 6.8 X10*3/uL (4.8-10.8)
[2024-12-16 10:24] LABS: Troponin-I High Sensitivity < 2.7 ng/L (<3.5-17.0)
--- NOTE | 2024-12-16 11:13 | HO.PM.IMPN ---
Subjective Subjective Date of Service: 12/16/24 Review of Systems Follow up ETOH withdrawal c/o abd pain, n/v Physical Exam Vital Signs: Vital Signs: Last Vital Signs Temp 97.0 F 12/16/24 07:01 Pulse 84 12/16/24 10:30 Resp 18 12/16/24 07:01 BP 182/96 H 12/16/24 10:30 Pulse Ox 100 12/16/24 07:01 O2 Del Method Room Air 12/16/24 07:01 BMI result Body Mass Index 19.1 Appearing in no acute distress lung sounds are clear to auscultation heart regular rate rhythm, clear S1, S2 positive bowel sounds, abdomen is soft, nontender neuro patient is alert x3, no focal deficits Objective Data Active Medications Acetaminophen (Acetaminophen 325 Mg Tablet) 650 mg PO Q6H PRN PRN Reason: Pain, Mild 1-3,fever,headache Amphetamine/Dextroamphetamine (Dextroamphetamine/Amphetamine Xr 10 Mg Cap.Er.24h) 20 mg PO BID@0900,1400 [facility] Last Admin: 12/16/24 09:29 Dose: Not Given Documented By: ANSELMO Non-Admin Reason: Patient Refused Calcium Carbonate (Calcium Carbonate 750 Mg Tab.Chew) 750 mg PO Q4H PRN PRN Reason: Heartburn Enoxaparin Sodium (Enoxaparin Sodium 40 Mg/0.4 Ml Syringe) 40 mg SUBCUT Q24H [facility] Last Admin: 12/15/24 15:22 Dose: 40 mg Documented By: ADITI Folic Acid (Folic Acid 1 Mg Tablet) 1 mg PO DAILY [facility] Stop: 12/18/24 14:44 Last Admin: 12/16/24 09:36 Dose: 1 mg Documented By: ANSELMO Lactated Ringer's (Lr) 1,000 mls @ 100 mls/hr IVCONT .Q10H [facility] Last Infusion: 12/16/24 07:00 Dose: 0 mls/hr Documented By: ANSELMO Lamotrigine (Lamotrigine 25 Mg Tablet) 150 mg PO BEDTIME [facility] Last Admin: 12/15/24 20:11 Dose: 150 mg Documented By: OSMIN Lamotrigine (Lamotrigine 100 Mg Tablet) 100 mg PO DAILY [facility] Last Admin: 12/16/24 09:36 Dose: 100 mg Documented By: ANSLEMO Magnesium Hydroxide (Milk Of Magnesia 30 Ml Oral.Susp) 30 ml PO DAILY PRN PRN Reason: Constipation Morphine Sulfate (Morphine Sulfate 2 Mg/Ml Cartridge) 2 mg IVPUSH Q4H PRN; Protocol PRN Reason: Pain, Severe (Pain Scale 7-10) Multivitamins/Vitamin C (Multivitamin Tablet) 1 tab PO DAILY [facility] Stop: 12/18/24 14:44 Last Admin: 12/16/24 09:36 Dose: 1 tab Documented By: ANSELMO Nicotine (Nicotine 14 Mg Patch.Td24) 14 mg TRANSDERMA DAILY [facility] Last Admin: 12/16/24 09:36 Dose: Not Given Documented By: ANSELMO Non-Admin Reason: Patient Refused Ondansetron HCl (Ondansetron Hcl 4 Mg/2 Ml Vial) 4 mg IVPUSH Q6H PRN PRN Reason: Nausea and Vomiting Pantoprazole Sodium (Pantoprazole Sodium 40 Mg/10 Ml Vial) 40 mg IVPUSH BID@0630,1630 [facility] Pharmacy Consult (Consult Rx Etoh Phenob Im/Po) 1 each MISCELLANE ONCE PRN; Protocol PRN Reason: Consult order Phenobarbital (Phenobarbital 15 Mg Tablet) 45 mg PO BID [facility]; Protocol Stop: 12/17/24 09:01 Last Admin: 12/16/24 09:33 Dose: 45 mg Documented By: ANSELMO Phenobarbital (Phenobarbital 15 Mg Tablet) 15 mg PO BID [facility]; Protocol Stop: 12/19/24 09:01 Phenobarbital (Phenobarbital 15 Mg Tablet) 15 mg PO DAILY [facility]; Protocol Stop: 12/21/24 09:01 Phenobarbital Sodium (Phenobarbital Sodium 130 Mg/Ml Vial) 130 mg IM ONCE PRN PRN Reason: Alcohol Withdrawal Sodium Chloride (0.9 % Sodium Chloride Flush 3 Ml Syringe) [facility] Last Admin: 12/16/24 09:28 Dose: 3 ml Documented By: ANSELMO Thiamine HCl (Thiamine Hcl 100 Mg Tablet) 100 mg PO DAILY [facility] Stop: 12/18/24 14:44 Last Admin: 12/16/24 09:36 Dose: 100 mg Documented By: ANSELMO Labs 12/16/24 09:44 12/16/24 06:40 Labs: Laboratory Results - last 24 hr 12/15/24 12/15/24 12/16/24 06:54 10:54 06:40 MCV MCH MCHC RDW Plt Count MPV Absolute Nucleated RBC Nucleated RBC % (auto) Anion Gap 12 Estim Creat Clear Calc 84.6 Estimated GFR > 60 Random Glucose 97 Lactic Acid Calcium 8.4 Magnesium 1.5 L 2.0 Troponin I High Sens Urine Opiates Screen Not Detected Ur Buprenorphine Scrn Not Detected Ur Oxycodone Screen Not Detected Urine Methadone Screen Not Detected Urine Fentanyl Screen Not Detected Ur Barbiturates Screen POSITIVE H Ur Phencyclidine Scrn Not Detected Ur Amphetamines Screen Not Detected U Benzodiazepines Scrn POSITIVE H Urine Cocaine Screen Not Detected U Marijuana (THC) Screen POSITIVE H 12/16/24 09:44 MCV 88.4 MCH 30.3 MCHC 34.3 RDW 15.9 Plt Count 155 L MPV 9.1 L Absolute Nucleated RBC 0.000 Nucleated RBC % (auto) 0.0 Anion Gap Estim Creat Clear Calc Estimated GFR Random Glucose Lactic Acid 1.1 Calcium Magnesium Troponin I High Sens < 2.7 Urine Opiates Screen Ur Buprenorphine Scrn Ur Oxycodone Screen Urine Methadone Screen Urine Fentanyl Screen Ur Barbiturates Screen Ur Phencyclidine Scrn Ur Amphetamines Screen U Benzodiazepines Scrn Urine Cocaine Screen U Marijuana (THC) Screen Microbiology Microbiology Results: Microbiology 12/15/24 Unknown Urine Culture - Final Urine clean catch - Clean Catch Midstream Assessment and Plan (1) Alcohol use disorder: Status: Acute Plan 44-year-old female with a PMH significant for?seizure disorder on lamotrigine, alcohol use disorder with hx of withdrawal, GERD, and ADHD who presents to the ED seeking alcohol detox after drinking two sleeves of vodka daily for the past 3 weeks after being sober for the previous 2 years. Pt is admitted to the hospital for treatment and further evaluation of acute alcohol withdrawal requiring phenobarb protocol. Acute alcohol withdrawal reports tremors, N/V, anxiety, seeing black dots, diaphoresis, tremors when tried to detox on her own Continue Phenobarb protocol Daily multivitamin, folic acid, thiamine, protonix CIWA scale Addiction medicine consult Monitor on telemetry Hypomagnesmia. Resolved Will supplement with mag 2g IV Black colored stools Self-reported x2-3 days Current H&H 14.9/43.0 Follow CBC Stool guaiac has not yet been done; consider testing if there is a drop in H&H Seizure disorder Question of compliance with home meds Continue lamotrigine Seizure precautions ADHD Continue Adderall Full Code DVT Prophylaxis: Lovenox Quality Stroke Does the patient have a stroke diagnosis?: No VTE Prior VTE?: No VTE Risk Level:: Medical - moderate - high VTE Device Contraindication: Treatment Not Indicated VTE Drug Contraindication: N/A - Med Ordered
[2024-12-16 11:49] LABS: Alanine Aminotransferase 94 U/L (0-31); Albumin Level 3.5 g/dL (3.5-5.0); Alkaline Phosphatase 55 U/L (39-117); Aspartate Amino Transferase 126 U/L (5-31); Total Protein 6.0 g/dL (6.5-8.0)
--- NOTE | 2024-12-16 15:58 | HO.ADDICTCON ---
History of Present Illness Date of Service: 12/16/2024 Chief Complaint: Alcohol Withdrawal Reason for Consult: AUD Sources of Information: patient interviewed and chart reviewed HPI Narrative: Patient is a 44 year old female with history of AUD and seizure disorder. Presented [place] [facility] complaining of alcohol withdrawal sx and seeing spots and concerned that she may be having a seizure soon. Patient subsequently admitted with acute alcohol withdrawal. Patient seen in room 472. She is awake, alert, and engaged in interview. She is tearful through much of discussion, and very tangential, making it difficult to follow her story at times. She states she has been abstaining from alcohol for the last 2 years, and last month decided to join her boyfriend in having a drink and has been drinking daily since then. Drinking up to 2 sleeves of vodka nips. Substance use and treatment history: Reports long history of AUD--starting at age 18. When asked about ATS admissions or any other level too many to count . History of Section [address] commitment. Most recent was [facility] 2 years ago. Denies any other substance use She is reporting nausea, vomiting and abdominal pain. She feels abdominal pain may be related to vomiting Labs reviewed--elevated liver enzymes, thrombocytopenia She appears comfortable, no tremor noted. CIWA scores 11 mainly due to vomiting Medical Evaluation Reviewed: Yes Review of Systems Constitutional: Reports as per HPI Diagnostics Vital Signs (24Hr): Vital Signs - 24 hr 12/15/24 17:12 12/15/24 18:14 12/15/24 20:00 Temperature 98.4 F 97.7 F 97.9 F Pulse Rate 82 83 82 Respiratory Rate 18 18 18 Blood Pressure 141/82 H 132/89 110/59 L Pulse Oximetry 94 98 96 Oxygen Delivery Method Room Air Room Air 12/15/24 23:07 12/16/24 02:53 12/16/24 04:45 Temperature 98.9 F 97.7 F Pulse Rate 84 68 Respiratory Rate 18 20 Blood Pressure 146/97 H 171/106 H 154/98 H Pulse Oximetry 98 98 Oxygen Delivery Method Room Air Room Air 12/16/24 07:01 12/16/24 09:28 12/16/24 10:30 Temperature 97.0 F Pulse Rate 66 84 Respiratory Rate 18 Blood Pressure 185/101 H 176/101 H 182/96 H Pulse Oximetry 100 Oxygen Delivery Method Room Air 12/16/24 12:00 12/16/24 15:17 Temperature 97.9 F 97.5 F Pulse Rate 76 87 Respiratory Rate 18 18 Blood Pressure 168/92 H 121/85 Pulse Oximetry 99 97 Oxygen Delivery Method Room Air Room Air BMI result Body Mass Index 19.1 Labs 12/16/24 09:44 12/16/24 06:40 Labs: Laboratory Results - last 48 hr 12/15/24 12/15/24 12/16/24 06:54 10:54 06:40 WBC 8.3 RBC 4.99 Hgb 14.9 Hct 43.0 MCV 86.2 MCH 29.9 MCHC 34.7 RDW 15.9 Plt Count 153 L D MPV 8.7 L Immature Gran % (Auto) 0.8 H Neut % (Auto) 69.6 Lymph % (Auto) 20.8 [place] % (Auto) 7.6 Eos % (Auto) 0.5 Baso % (Auto) 0.7 Lymph # (Auto) 1.7 [place] # (Auto) 0.6 Eos # (Auto) 0.0 Baso # (Auto) 0.1 Abs Immat Gran (auto) 0.07 H Absolute Neuts (auto) 5.8 Absolute Nucleated RBC 0.000 Nucleated RBC % (auto) 0.0 Sodium 137 137 Potassium 3.7 4.6 D Chloride 101 104 Carbon Dioxide 27 26 Anion Gap 13 12 BUN 14 8 L Creatinine 0.63 0.67 Estim Creat Clear Calc 91.6 84.6 Estimated GFR > 60 > 60 Random Glucose 97 97 Lactic Acid Calcium 8.7 D 8.4 Magnesium 1.5 L 2.0 Total Bilirubin 0.6 0.4 Direct Bilirubin 0.1 AST 194 H 126 H ALT 110 H 94 H Alkaline Phosphatase 60 55 Troponin I High Sens Total Protein 6.4 L 6.0 L Albumin 3.9 3.5 Urine Color Yellow Urine Appearance Clear Urine pH >= 9.0 Ur Specific [place] 1.020 Urine Protein 30 (1+) H Urine Glucose (UA) Negative Urine Ketones Negative Urine Blood Negative Urine Nitrite Negative Ur Leukocyte Esterase Trace H Urine RBC 0-2 Urine WBC 6-10 H Ur Squamous Epith Cells 0-2 Urine Bacteria None Seen Hyaline Casts 0-2 Urine Opiates Screen Not Detected Ur Buprenorphine Scrn Not Detected Ur Oxycodone Screen Not Detected Urine Methadone Screen Not Detected Urine Fentanyl Screen Not Detected Ur Barbiturates Screen POSITIVE H Ur Phencyclidine Scrn Not Detected Ur Amphetamines Screen Not Detected U Benzodiazepines Scrn POSITIVE H Urine Cocaine Screen Not Detected U Marijuana (THC) Screen POSITIVE H Ethyl Alcohol < 10 12/16/24 09:44 WBC 6.8 RBC 5.25 Hgb 15.9 Hct 46.4 MCV 88.4 MCH 30.3 MCHC 34.3 RDW 15.9 Plt Count 155 L MPV 9.1 L Immature Gran % (Auto) Neut % (Auto) Lymph % (Auto) [place] % (Auto) Eos % (Auto) Baso % (Auto) Lymph # (Auto) [place] # (Auto) Eos # (Auto) Baso # (Auto) Abs Immat Gran (auto) Absolute Neuts (auto) Absolute Nucleated RBC 0.000 Nucleated RBC % (auto) 0.0 Sodium Potassium Chloride Carbon Dioxide Anion Gap BUN Creatinine Estim Creat Clear Calc Estimated GFR Random Glucose Lactic Acid 1.1 Calcium Magnesium Total Bilirubin Direct Bilirubin AST ALT Alkaline Phosphatase Troponin I High Sens < 2.7 Total Protein Albumin Urine Color Urine Appearance Urine pH Ur Specific [place] Urine Protein Urine Glucose (UA) Urine Ketones Urine Blood Urine Nitrite Ur Leukocyte Esterase Urine RBC Urine WBC Ur Squamous Epith Cells Urine Bacteria Hyaline Casts Urine Opiates Screen Ur Buprenorphine Scrn Ur Oxycodone Screen Urine Methadone Screen Urine Fentanyl Screen Ur Barbiturates Screen Ur Phencyclidine Scrn Ur Amphetamines Screen U Benzodiazepines Scrn Urine Cocaine Screen U Marijuana (THC) Screen Ethyl Alcohol Imaging Radiology Impressions: ITS Impressions Abdomen/Pelvis CT 12/16/24 09:58 IMPRESSION: No acute abnormality is identified. Incidental findings as discussed above. Electronically signed by: Peter Waddell MD 12/16/2024 11:00 AM EDT Mental Status Exam Mental Status Exam Patient Appearance: Disheveled Level of Consciousness: Awake, Appropriate and Alert Patient Behavior: Talkative Mood Description: Sad Affect Description: Sad Speech Pattern: Clear Hallucinations: None Thought Content: positive for Circumstantial and positive for Tangential Judgement: Fair (limited insight) Medications Medications Current Medications Acetaminophen (Acetaminophen 325 Mg Tablet) 650 mg PO Q6H PRN PRN Reason: Pain, Mild 1-3,fever,headache Amphetamine/Dextroamphetamine (Dextroamphetamine/Amphetamine Xr 10 Mg Cap.Er.24h) 20 mg PO BID@0900,1400 ALICIA Last Admin: 12/16/24 12:35 Dose: Not Given Calcium Carbonate (Calcium Carbonate 750 Mg Tab.Chew) 750 mg PO Q4H PRN PRN Reason: Heartburn Enoxaparin Sodium (Enoxaparin Sodium 40 Mg/0.4 Ml Syringe) 40 mg SUBCUT Q24H [facility] Last Admin: 12/15/24 15:22 Dose: 40 mg Folic Acid (Folic Acid 1 Mg Tablet) 1 mg PO DAILY [facility] Stop: 12/18/24 14:44 Last Admin: 12/16/24 09:36 Dose: 1 mg Lactated Ringer's (Lr) 1,000 mls @ 100 mls/hr IVCONT .Q10H [facility] Last Admin: 12/16/24 11:51 Dose: 100 mls/hr Lamotrigine (Lamotrigine 25 Mg Tablet) 150 mg PO BEDTIME [facility] Last Admin: 12/15/24 20:11 Dose: 150 mg Lamotrigine (Lamotrigine 100 Mg Tablet) 100 mg PO DAILY [facility] Last Admin: 12/16/24 09:36 Dose: 100 mg Magnesium Hydroxide (Milk Of Magnesia 30 Ml Oral.Susp) 30 ml PO DAILY PRN PRN Reason: Constipation Morphine Sulfate (Morphine Sulfate 2 Mg/Ml Cartridge) 2 mg IVPUSH Q4H PRN; Protocol PRN Reason: Pain, Severe (Pain Scale 7-10) Last Admin: 12/16/24 11:50 Dose: 2 mg Multivitamins/Vitamin C (Multivitamin Tablet) 1 tab PO DAILY [facility] Stop: 12/18/24 14:44 Last Admin: 12/16/24 09:36 Dose: 1 tab Nicotine (Nicotine 14 Mg Patch.Td24) 14 mg TRANSDERMA DAILY [facility] Last Admin: 12/16/24 09:36 Dose: Not Given Ondansetron HCl (Ondansetron Hcl 4 Mg/2 Ml Vial) 4 mg IVPUSH Q6H PRN PRN Reason: Nausea and Vomiting Pantoprazole Sodium (Pantoprazole Sodium 40 Mg/10 Ml Vial) 40 mg IVPUSH BID@0630,1630 [facility] Last Admin: 12/16/24 11:50 Dose: 40 mg Pharmacy Consult (Consult Rx Etoh Phenob Im/Po) 1 each MISCELLANE ONCE PRN; Protocol PRN Reason: Consult order Phenobarbital (Phenobarbital 15 Mg Tablet) 45 mg PO BID [facility]; Protocol Stop: 12/17/24 09:01 Last Admin: 12/16/24 09:33 Dose: 45 mg Phenobarbital (Phenobarbital 15 Mg Tablet) 15 mg PO BID [facility]; Protocol Stop: 12/19/24 09:01 Phenobarbital (Phenobarbital 15 Mg Tablet) 15 mg PO DAILY [facility]; Protocol Stop: 12/21/24 09:01 Phenobarbital Sodium (Phenobarbital Sodium 130 Mg/Ml Vial) 130 mg IM ONCE PRN PRN Reason: Alcohol Withdrawal Sodium Chloride (0.9 % Sodium Chloride Flush 3 Ml Syringe) 3 ml IVFLUSH QSHIFT [facility] Last Admin: 12/16/24 09:28 Dose: 3 ml Thiamine HCl (Thiamine Hcl 100 Mg Tablet) 100 mg PO DAILY [facility] Stop: 12/18/24 14:44 Last Admin: 12/16/24 09:36 Dose: 100 mg Allergies Allergies Allergy/AdvReac Type Severity Reaction Status Date / Time Penicillins AdvReac Rash Verified 12/15/24 06:39 Assessment & Plan Assessment & Plan (1) Alcohol withdrawal: Status: Acute Code(s): F10.939 - Alcohol use, unspecified with withdrawal, unspecified Assessment and Plan: pheno taper in place, thiamine and folic acid patient declines GARY or appt for AUD treatment follow up requesting transition coach referral will follow up in AM to provide referral information Total time managing care of this patient today __45__ minutes. [facility] Past Medical History Medical History (Updated 12/16/24 @ 15:59 by Yamilet Garcia CNP) Alcohol use disorder Cigarette smoker one half pack a day or less Irregular periods/menstrual cycles Depression with anxiety Chronic heartburn Hx of pancreatitis Seizure disorder Hx of Family History Family History Other No significant family history Surgical History Surgical History [place] teeth extracted Social History Social History Household Members: Family Household Members Other:: lives with her mother Housing: Apartment Alcohol intake: current Alcohol intake frequency: 3 or more drinks per day Alcohol type: hard liquor Patient Tobacco Use Status: Current everyday Tobacco user Tobacco use type: Cigarette Cigarette Packs Per Day: 0.5 Cigarettes Per Day: 4 Smoked in Last 30 Days: Yes Patient Interested in Nicotine Replacement: No Patient Given Instructions on How to Stop Smoking: No Second Hand Smoke Exposure: No Use of substances other than those prescribed or required for medical reasons: Yes Substance Use Type: Marijuana Currently Displaying Signs/Symptoms of Drug Intoxication Withdrawal: No Have you been hit, kicked, punched, or otherwise hurt by someone within the past year? If so, by whom?: No Do you feel safe in your current relationship?: No Is there a partner from a previous relationship who is making you feel unsafe now?: No Are you made to feel afraid or neglected: No Advance Directives: No Advance Directives Information Provided: Yes Do you have a plan to hurt others: No Plan Recently lost weight without trying: No Eating poorly because of decreased appetite: No Nutrition Risks: On aspiration precautions Patient : No : No Poor oral hygiene: No service: No Current occupational status: unemployed
[2024-12-17 03:18] VITALS: BP 106/61; PULSE 75; RESP 18; TEMP 36.9; O2SAT 97
--- NOTE | 2024-12-17 07:17 | P.DS_ITS ---
DS: Providers Provider Date of Service: 12/17/24 Date of admission: 12/15/24 12:55 Date of discharge: 12/17/24 Primary care physician: None Physician Consults: 12/15/24 14:49 Addiction Medicine Provider Routine Consulting Provider: Addiction Covering Reason for consultation: AUD, here for withdrawal Has provider been notified: Yes DS: Diagnosis Discharge Diagnosis (1) Alcohol withdrawal: Status: Acute DS: Summary Hospital Course Hospital Course: HP as per admitting provider. Pt is a 44-year-old female with a PMH significant for?seizure disorder on lamotrigine, alcohol use disorder with hx of withdrawal, GERD, and ADHD who presents to the ED seeking alcohol detox after drinking two sleeves of vodka daily for the past 3 weeks after being sober for the previous 2 years. Pt is vague on what prompted the relapse, though apparently it involves drinking with her . Attempted to detox on her own for the past 1-2 days, but experienced abdominal pain, nausea, vomiting, diaphoresis, tremors, and was seeing black dots, so presented to the hospital to help with detox. Reports he has had similar presentations to [facility] in [facility] timing and duration of stay is unclear. Pt is a vague historian. Also reports dark colored stools for the past few days. Currently complains of mild diffuse abdominal pain, though otherwise no significant complaints. Currently denies headache, nausea, vomiting, or diaphoresis. No increase in anxiety. Denies auditory or visual hallucinations, or tactile disturbances. No chest pain/pressure, palpitations. Denies shortness or breath or difficulty breathing. Reports seizure activity began a few years ago after she left a detox facility but had not yet started drinking again. Has been inconsistent with lamotrigine, though reports has not had a known seizure for the past two years. Has not followed with a PCP in 9 years. In the ED pt's vitals stable. Labs were significant for mild thrombocytopenia of 153, and with AST 184 and ALT 110. No leukocytosis. Stable H&H. No significant electrolyte abnormalities. Renal function WNL. UA not consistent with UTI. Ethyl alcohol undetectable. Tox screen positive for barbiturates, benzos, and marijuana. CXR showed no acute cardiopulmonary findings, though showed mild multilevel thoracic discogenic degenerative disease. EKG demonstrated sinus rhythm with sinus arrhythmia though no evidence of significant ST elevations or depressions. Pt was treated in the ED with diazepam, Protonix, Maalox, IVF, lamotrigine, ibuprofen, and started on phenobarb protocol. Pt is admitted to the hospital for treatment and further evaluation of acute alcohol withdrawal requiring phenobarb protocol. Patient eloped at 0700 prior to being seen and examined for the day Current Hospital course: 44-year-old female with a PMH significant for?seizure disorder on lamotrigine, alcohol use disorder with hx of withdrawal, GERD, and ADHD who presents to the ED seeking alcohol detox after drinking two sleeves of vodka daily for the past 3 weeks after being sober for the previous 2 years. Pt is admitted to the hospital for treatment and further evaluation of acute alcohol withdrawal requiring phenobarb protocol. Acute alcohol withdrawal reports tremors, N/V, anxiety, seeing black dots, diaphoresis, tremors when tried to detox on her own Continue Phenobarb protocol Daily multivitamin, folic acid, thiamine, protonix CIWA scale Addiction medicine consult Monitor on telemetry Hypomagnesmia. Resolved Will supplement with mag 2g IV Black colored stools Self-reported x2-3 days Current H&H 14.9/43.0 Follow CBC Stool guaiac has not yet been done; consider testing if there is a drop in H&H Seizure disorder Question of compliance with home meds Continue lamotrigine Seizure precautions ADHD Continue Adderall Time Attestation Discharge Coordination Time (in mins): 30 Quality: Safe Use of Opioids Does Pt have an Active Cancer Diagnosis on the Problem List?: No Quality: Stroke Does the patient have a stroke diagnosis?: No Physical Exam Vital Signs: Vital Signs: Last Vital Signs Temp 98.5 F 12/17/24 03:18 Pulse 75 12/17/24 03:18 Resp 18 12/17/24 03:18 BP 106/61 12/17/24 03:18 Pulse Ox 97 12/17/24 03:18 O2 Del Method Room Air 12/17/24 03:18 BMI result Body Mass Index 19.1 eloped DS: Data Data Completed and Pending Labs on day of discharge: Laboratory Results - last 24 hr 12/16/24 12/16/24 06:40 09:44 WBC 6.8 RBC 5.25 Hgb 15.9 Hct 46.4 MCV 88.4 MCH 30.3 MCHC 34.3 RDW 15.9 Plt Count 155 L MPV 9.1 L Absolute Nucleated RBC 0.000 Nucleated RBC % (auto) 0.0 Sodium 137 Potassium 4.6 D Chloride 104 Carbon Dioxide 26 Anion Gap 12 BUN 8 L Creatinine 0.67 Estim Creat Clear Calc 84.6 Estimated GFR > 60 Random Glucose 97 Lactic Acid 1.1 Calcium 8.4 Magnesium 2.0 Total Bilirubin 0.4 Direct Bilirubin 0.1 AST 126 H ALT 94 H Alkaline Phosphatase 55 Troponin I High Sens < 2.7 Total Protein 6.0 L Albumin 3.5 Discharge Plan Discharge Anticipated Discharge Date/Time: 12/17/24 07:37 Patient Disposition: Left Against Medical Advice Discharge Diagnosis: Acute alcohol withdrawal Hypomagnesemia Black stools Referrals: Physician,None [Primary Care Provider, Medical] - 1 Week Discharge Medications: No Action dextroamphetamine-amphetamine [Adderall XR] 20 mg capsule,extended release 24hr 1 cap PO BID lamotrigine 100 mg tablet 100 mg PO DAILY lamotrigine 100 mg tablet 150 mg PO BEDTIME ibuprofen 800 mg Tablet 800 mg PO DAILY PRN (Reason: Pain) Discharge Orders: Discharge Order (Routine); Ordered 12/17/24 Ordered By: Stacey Javier Diet: Advance to usual diet Activity on Discharge: As tolerated Print Language: Jamaican Care Plan Goals: Patient eloped Health Concerns: Acute alcohol withdrawal Hypomagnesemia Black stools Plan of Treatment: Follow up with primary care provider Patient should return to the ER if symptoms persist or return Assessment: See discharge summary Discharge Date/Time: 12/17/24 07:03
== END 2024-12-17 07:03 | disposition left against medical advice (07) | DRG 894 ==
LOC: HO.ED 07:59 → HO.EDOVER 13:31 → HO.IMC 17:17
PROVIDERS: Admitting Provider Student in an Organized Health Care Education/Training Program; Emergency Provider Emergency Medicine; Visit Provider Nurse Practitioner Acute Care
DX: F10.139 Alcohol abuse with withdrawal, unspecified (principal); G40.909 Epilepsy, unspecified, not intractable, without status epilepticus; E83.42 Hypomagnesemia; K21.9 Gastro-esophageal reflux disease without esophagitis; R19.5 Other fecal abnormalities; F90.9 Attention-deficit hyperactivity disorder, unspecified type; Z87.891 Personal history of nicotine dependence; Z79.899 Other long term (current) drug therapy
CPT/HCPCS: 36415; 71046; 74176; 80048; 80053; 80076; 80307; 81001; 83605; 83735; 84484; 85025; 85027; 87086; 93005; 99285; J0360; J1308; J1650; J1885; J2270; J2405; J2470; J2560; J3360; J3475; J7120

== ENCOUNTER → 2024-12-15 07:21 | Outpatient (BNV) | payer MEDICARE, MEDICAID, SELFPAY | PROVIDERS: Emergency Provider Emergency Medicine; Visit Provider Internal Medicine | DX: R56.9 Unspecified convulsions (principal) | CPT/HCPCS: 93010 ==

== ENCOUNTER → 2024-12-15 07:23 | Outpatient (BNV) | payer MEDICARE, MEDICAID, SELFPAY | PROVIDERS: Emergency Provider Emergency Medicine; Visit Provider Radiology Diagnostic Radiology | DX: M51.34 Other intervertebral disc degeneration, thoracic region (principal) | CPT/HCPCS: 71046 ==

== ENCOUNTER 2024-12-15 12:55 | Outpatient (BNV) | payer MEDICARE, MEDICAID, SELFPAY | END 2024-12-16 08:45 | PROVIDERS: Admitting Provider Student in an Organized Health Care Education/Training Program; Emergency Provider Emergency Medicine; Visit Provider Radiology Diagnostic Radiology | DX: R10.9 Unspecified abdominal pain (principal) | CPT/HCPCS: 74176 ==

== ENCOUNTER 2024-12-15 12:55 | Outpatient (BNV) | payer MEDICARE, MEDICAID, SELFPAY | END 2024-12-16 08:44 | PROVIDERS: Admitting Provider Student in an Organized Health Care Education/Training Program; Emergency Provider Emergency Medicine; Visit Provider Internal Medicine Cardiovascular Disease | DX: I21.3 ST elevation (STEMI) myocardial infarction of unspecified site (principal) | CPT/HCPCS: 93010 ==

== ENCOUNTER → 2024-12-15 12:55 | Outpatient (BNV) | payer MEDICARE, MEDICAID, SELFPAY | PROVIDERS: Admitting Provider Student in an Organized Health Care Education/Training Program; Emergency Provider Emergency Medicine; Visit Provider Nurse Practitioner Psychiatric/Mental Health | DX: F10.939 Alcohol use, unspecified with withdrawal, unspecified (principal) | CPT/HCPCS: 99222 ==

== ENCOUNTER → 2024-12-15 12:55 | Outpatient (BNV) | payer MEDICARE, MEDICAID, SELFPAY | PROVIDERS: Admitting Provider Student in an Organized Health Care Education/Training Program; Emergency Provider Emergency Medicine; Visit Provider Student in an Organized Health Care Education/Training Program | DX: F10.939 Alcohol use, unspecified with withdrawal, unspecified (principal) | CPT/HCPCS: 99223 ==

== ENCOUNTER 2024-12-18 07:57 | Inpatient (IN) | payer MEDICARE, MEDICAID, SELFPAY ==
[2024-12-18 08:03] VITALS: BP 120/83; PULSE 124; RESP 18; TEMP 36.5; O2SAT 98; BMI 20.4
--- NOTE | 2024-12-18 08:10 | ED.GENADULT ---
HPI - General Adult General Chief complaint: ETOH/Substance Use Stated complaint: Alcohol detox Time Seen by Provider: 12/18/24 08:10 Source: patient Mode of arrival: ambulatory Limitations: no limitations History of Present Illness ED Provider: Yas Mabry PA-C HPI narrative: Patient is a 44 year old assigned female at with a history of seizure disorder on lamotrigine, AUD with history of withdrawal and withdrawal seizures, GERD, and ADHD presenting to the emergency department today with alcohol withdrawal. Patient states that she was recently admitted for this and left against medical advice. Patient states that she made a mistake and she would like to be re-admitted. Patient states that she is having new visual hallucinations which she wasn't having a couple days ago. Patient states that she last drank yesterday, 2 sleeves of vodka and she is feeling unwell now. Patient denies any dizziness, lightheadedness, abdominal pain, nausea, vomiting, fever, chills, blurry vision, double vision, loss of vision, chest pain, difficulty breathing, shortness of breath, back pain, night sweats, pain with urination, increased urinary frequency, increased urinary urgency, blood in her urine or stool, syncope or a near syncopal episode, recent trauma or falls, bowel incontinence, bladder incontinence, or any other complaints at this time. Relieving factors: none Exacerbating factors: none Associated symptoms: denies other symptoms Treatments prior to arrival: none Related Data Home Medications ?Medication ?Instructions ?Recorded ?Confirmed dextroamphetamine-amphetamine ER 1 cap PO BID 12/15/24 12/18/24 20 mg 24hr capsule,extend release (Adderall XR) ibuprofen 800 mg tablet 800 mg PO DAILY PRN Pain 12/15/24 12/18/24 lamotrigine 100 mg tablet 100 mg PO DAILY 12/15/24 12/18/24 lamotrigine 100 mg tablet 150 mg PO BEDTIME 12/15/24 12/18/24 Allergies Allergy/AdvReac Type Severity Reaction Status Date / Time Penicillins AdvReac Rash Verified 12/18/24 08:05 Review of Systems Constitutional: Constitutional: Reports no additional constitutional complaints, Denies chills, Denies fever(s) and Denies night sweats Eyes: Eyes: Reports no additional eye complaints, Denies blurry vision, Denies change in vision, Denies diplopia, Denies eye discharge, Denies loss of vision and Denies eye pain ENT: Denies dizziness Cardiovascular: Cardiovascular: Reports no additional cardiovascular complaints, Denies chest pain, Denies lightheadedness, Denies Loss of Consciousness and Denies dyspnea Respiratory: Respiratory: Reports no additional respiratory complaints and Denies dyspnea Gastrointestinal: Gastrointestinal: Reports no additional gastrointestinal complaints, Denies abdominal pain, Denies melena, Denies hematochezia, Denies change in bowel habits and Denies change in stool character Genitourinary: Genitourinary: Denies hematuria, Denies urinary frequency, Denies dysuria, Denies urinary incontinence, Denies urinary hesitancy and Denies urinary urgency Musculoskeletal: Musculoskeletal: Reports no additional musculoskeletal complaints, Denies numbness and Denies tingling Neurologic: Denies dizziness, Denies loss of vision, Denies numbness and Denies tingling Psychiatric: Psychiatric: Reports no additional psychiatric complaints and Reports visual hallucinations Endocrine: Endocrine: Reports no additional endocrine complaints Hematologic/Lymphatic: Hematologic/Lymphatic: Reports no additional hematologic/lymphatic complaints Allergic/Immunologic: Allergic/Immunologic: Reports no additional allergic/immunologic complaints [facility] Past Medical History Attestation statement: The following information was validated with the patient. Source: old records reviewed and nursing notes reviewed Medical History Alcohol use disorder Cigarette smoker one half pack a day or less Irregular periods/menstrual cycles Depression with anxiety Chronic heartburn Hx of pancreatitis Seizure disorder Hx of Surgical History [place] teeth extracted Family History Family History Other No significant family history Social History Social History Household Members: Family Household Members Other:: lives with her mother Housing: Apartment Alcohol intake: current Alcohol intake frequency: 3 or more drinks per day Alcohol type: hard liquor Patient Tobacco Use Status: Current everyday Tobacco user Tobacco use type: Cigarette Cigarette Packs Per Day: 0.5 Cigarettes Per Day: 4 Smoked in Last 30 Days: Yes Second Hand Smoke Exposure: No Use of substances other than those prescribed or required for medical reasons: No Substance Use Type: Marijuana Advance Directives: No Advance Directives Information Provided: Yes Do you have a plan to hurt others: No Plan Patient : No service: No Current occupational status: unemployed Physical Exam ED Vital Signs: Vital Signs - 24 hr 12/18/24 08:03 12/18/24 09:22 Temperature 97.7 F 98.2 F Pulse Rate 124 H 97 Respiratory Rate 18 13 Blood Pressure 120/83 131/88 Pulse Oximetry 98 99 Oxygen Delivery Method Room Air Room Air BMI result Body Mass Index 20.4 Const General: cooperative, no acute distress, alert and awake Nutritional Appearance: well nourished Orientation/consciousness: patient oriented x3 HENMT Head: Yes normal to inspection and Yes atraumatic Ears: hearing grossly normal bilaterally and external ears normal General nose exam: Normal external nose present, no nasal discharge noted and no epistaxis Face and sinus: Yes normal facial exam, No abrasion and No laceration Mouth: Normal oral and palatal mucosa present, no drooling and no muffled voice Eyes General: appearance normal, both eyes and all related structures Periorbital: periorbital findings normal Eyelids: Yes eyelids normal Conjunctivae: conjunctivae normal Pupils: Equal, round and reactive pupils present EOM: EOMs intact bilaterally Neck Neck: Yes normal visual inspection, Yes full ROM and Yes no lymphadenopathy Resp Effort & Inspection: normal respiratory effort and able to speak in complete sentences Cardio Rate: tachycardic Rhythm: regular rhythm Neuro General: patient oriented x3, moves all extremities and CN's II-XI intact bilaterally Cranial nerves: Yes Equal, round and reactive pupils present Cognition (Neuro): normal cognition Extrem General: Yes normal to inspection, Yes full ROM and Yes capillary refill normal Psych Appearance: grossly normal Mental Status: mental status grossly normal Affect: normal affect Attitude: cooperative Thought process: Normal thought process present Thought content: Normal thought content present Insight: Good insight present (Psych) Medications Administered Generic Name Dose Route Start Last Admin Trade Name Freq PRN Reason Stop Dose Admin Phenobarbital Sodium 157 mg 12/18/24 11:30 12/18/24 12:25 Phenobarbital Sodium 130 Mg/Ml Vial Im Q3hx2 IM 12/18/24 14:31 157 mg Q3H ALICIA Administration Protocol Discontinued Medications Generic Name Dose Route Start Last Admin Trade Name Freq PRN Reason Stop Dose Admin Diazepam 5 mg 12/18/24 12:27 12/18/24 12:34 Diazepam 10 Mg/2 Ml Cartridge IVPUSH 12/18/24 12:28 5 mg STAT STA Administration Phenobarbital Sodium 209 mg 12/18/24 08:30 12/18/24 09:04 Phenobarbital Sodium 130 Mg/Ml Im Once IM 12/18/24 08:31 209 mg ONCE ONE Administration Protocol Procedures EJ/Peripheral Line Arm R: Time Out Performed: Yes Skin Cleansed in Sterile Fashion: Yes Size (gauge): 20 IV Secured and Dressing Applied: Yes Patient Tolerated Procedure: well Additional Comments: I WAS ASKED BY RN TO INSERT IV LINE MULTIPLE ATTEMPT UNSUCCESSFUL, UNDER ULTRASOUND-GUIDED LINEAR PROBE CANNULATED RIGHT BASILIC VEIN WITH A 20 GAUGE LONG CATHETER GOOD FLASH GOOD BLOOD RETURN dR BLAKE Medical Decision Making Medical Decision Making [facility] Narrative: Patient is a 44 year old assigned female at with a history of seizure disorder on lamotrigine, AUD with history of withdrawal and withdrawal seizures, GERD, and ADHD presenting to the emergency department today with alcohol withdrawal. Patient's physical exam was as noted in the physical exam portion of this note. Patient's blood work was consistent with her baseline. Patient's urine showed no acute process. Patient's EKG showed tachycardia. I explained my physical exam findings as well as all test results to the patient. I answered all questions asked by the patient. I had an extensive conversation with the patient and she assured me she would be staying in the hospital this time. Patient was started on phenobarb protocol. I spoke with the hospitalist team who agreed to admission. Patient verbalized agreement and understanding with this treatment plan and admission. Differential Diagnosis Differential Diagnoses: The differential diagnosis associated with the presentation includes Alcohol use disorder Alcohol withdrawal Admission/Observation Consideration of admission/observation: Escalation of care including admission/observation considered Patient admitted as noted in the MDM Rationale portion of this note. Consult Healthcare Provider Management of the patient was discussed with: Hospitalist (agreed to admission as noted in the MDM Rationale portion of this note. ) Lab Data [facility] Lab Attestation statement: I reviewed the patient's lab results. My interpretation of these results are in the MDM Rationale portion of this note. 12/18/24 09:22 12/18/24 09:21 Labs: Lab Results 12/18/24 12/18/24 12/18/24 Range/Units 09:21 09:22 10:33 WBC 6.5 (4.8-10.8) X10*3/uL RBC 5.13 (4.20-5.50) X10*6/uL Hgb 15.5 (12.0-16.0) g/dl Hct 44.7 (37.0-47.0) % MCV 87.1 (80.0-98.0) fL MCH 30.2 (27.0-33.0) pg MCHC 34.7 (31.0-35.0) g/dl RDW 16.6 H (11.0-16.0) % Plt Count 158 L (160-400) X10*3/uL MPV 8.7 L (9.4-12.3) fL Immature Gran % (Auto) 0.8 H (0.0-0.4) % Neut % (Auto) 54.1 (45-73) % Lymph % (Auto) 31.4 (20-40) % [place] % (Auto) 11.5 H (2-11) % Eos % (Auto) 1.4 (0-4) % Baso % (Auto) 0.8 (0-2) % Lymph # (Auto) 2.0 (1.2-4.9) X10*3/uL [place] # (Auto) 0.8 (0.1-1.2) X10*3/uL Eos # (Auto) 0.1 (0.0-0.4) X10*3/uL Baso # (Auto) 0.1 (0.0-0.2) X10*3/uL Abs Immat Gran (auto) 0.05 H (0.00-0.03) X10*3/uL Absolute Neuts (auto) 3.5 (2.0-8.3) x10*3/uL Absolute Nucleated RBC 0.000 (0.0-0.012) X10*3/uL Nucleated RBC % (auto) 0.0 (0.0-0.2) /100WBC Sodium 135 (135-145) mmol/L Potassium 4.6 (3.3-5.1) mmol/L Chloride 101 (96-108) mmol/L Carbon Dioxide 27 (22-29) mmol/L Anion Gap 12 (12-20) BUN 15 (9-16) mg/dL Creatinine 0.61 (0.5-1.4) mg/dL Estim Creat Clear Calc 98.9 Estimated GFR > 60 Random Glucose 97 (60-115) mg/dL Calcium 9.0 D (8.4-10.2) mg/dL Magnesium 1.8 (1.6-2.6) mg/dL Total Bilirubin 0.3 (0.0-1.0) mg/dL AST 73 H (5-31) U/L ALT 74 H (0-31) U/L Alkaline Phosphatase 57 (39-117) U/L Troponin I High Sens < 2.7 (<3.5-17.0) ng/L Total Protein 6.6 (6.5-8.0) g/dL Albumin 4.0 (3.5-5.0) g/dL Urine Color Yellow Urine Appearance Cloudy Urine pH 8.0 (5.0-9.0) Ur Specific [place] 1.015 (1.005-1.025) Urine Protein Negative (Neg-Trace) mg/dL Urine Glucose (UA) Negative (Negative) mg/dL Urine Ketones Negative (Negative) mg/dL Urine Blood Negative (Negative) Urine Nitrite Negative (Negative) Ur Leukocyte Esterase Negative (Negative) Urine Opiates Screen (Not Detect) Ur Buprenorphine Scrn (Not Detect) ng/mL Ur Oxycodone Screen (Not Detect) ng/mL Urine Methadone Screen (Not Detect) ng/mL Urine Fentanyl Screen (Not Detect) Ur Barbiturates Screen (Not Detect) Ur Phencyclidine Scrn (Not Detect) Ur Amphetamines Screen (Not Detect) U Benzodiazepines Scrn (Not Detect) Urine Cocaine Screen (Not Detect) U Marijuana (THC) Screen (Not Detect) Ethyl Alcohol < 10 mg/dL 12/18/24 Range/Units 10:36 WBC (4.8-10.8) X10*3/uL RBC (4.20-5.50) X10*6/uL Hgb (12.0-16.0) g/dl Hct (37.0-47.0) % MCV (80.0-98.0) fL MCH (27.0-33.0) pg MCHC (31.0-35.0) g/dl RDW (11.0-16.0) % Plt Count (160-400) X10*3/uL MPV (9.4-12.3) fL Immature Gran % (Auto) (0.0-0.4) % Neut % (Auto) (45-73) % Lymph % (Auto) (20-40) % [place] % (Auto) (2-11) % Eos % (Auto) (0-4) % Baso % (Auto) (0-2) % Lymph # (Auto) (1.2-4.9) X10*3/uL [place] # (Auto) (0.1-1.2) X10*3/uL Eos # (Auto) (0.0-0.4) X10*3/uL Baso # (Auto) (0.0-0.2) X10*3/uL Abs Immat Gran (auto) (0.00-0.03) X10*3/uL Absolute Neuts (auto) (2.0-8.3) x10*3/uL Absolute Nucleated RBC (0.0-0.012) X10*3/uL Nucleated RBC % (auto) (0.0-0.2) /100WBC Sodium (135-145) mmol/L Potassium (3.3-5.1) mmol/L Chloride (96-108) mmol/L Carbon Dioxide (22-29) mmol/L Anion Gap (12-20) BUN (9-16) mg/dL Creatinine (0.5-1.4) mg/dL Estim Creat Clear Calc Estimated GFR Random Glucose (60-115) mg/dL Calcium (8.4-10.2) mg/dL Magnesium (1.6-2.6) mg/dL Total Bilirubin (0.0-1.0) mg/dL AST (5-31) U/L ALT (0-31) U/L Alkaline Phosphatase (39-117) U/L Troponin I High Sens (<3.5-17.0) ng/L Total Protein (6.5-8.0) g/dL Albumin (3.5-5.0) g/dL Urine Color Urine Appearance Urine pH (5.0-9.0) Ur Specific [place] (1.005-1.025) Urine Protein (Neg-Trace) mg/dL Urine Glucose (UA) (Negative) mg/dL Urine Ketones (Negative) mg/dL Urine Blood (Negative) Urine Nitrite (Negative) Ur Leukocyte Esterase (Negative) Urine Opiates Screen Not Detected (Not Detect) Ur Buprenorphine Scrn Not Detected (Not Detect) ng/mL Ur Oxycodone Screen Not Detected (Not Detect) ng/mL Urine Methadone Screen Not Detected (Not Detect) ng/mL Urine Fentanyl Screen Not Detected (Not Detect) Ur Barbiturates Screen POSITIVE H (Not Detect) Ur Phencyclidine Scrn Not Detected (Not Detect) Ur Amphetamines Screen Not Detected (Not Detect) U Benzodiazepines Scrn POSITIVE H (Not Detect) Urine Cocaine Screen Not Detected (Not Detect) U Marijuana (THC) Screen POSITIVE H (Not Detect) Ethyl Alcohol mg/dL Independent Interpretation I performed an independent interpretation of an: EKG Interpretation: I independently interpreted this EKG and am in agreement with the below findings: Vent. Rate: 104 BPM Atrial Rate: 104 BPM P-R Int: 162 ms QRS Dur: 74 ms QT Int: 328 ms P-R-T Axes: 82 84 60 degrees QTcB Int: 431 ms Sinus tachycardia Possible Anterior infarct, age undetermined When compared with ECG of 16-Dec-2024 20:29, T wave amplitude has decreased in Anterior leads DD/ [id number] Critical Care Time Critical Care Time Critical Care Time: Yes Total Critical Care Time: 34 Attestation: I spent 34 minutes of Critical Care Time with this patient. This does not include time spent on separately reported billable procedures. Discharge Plan Discharge Clinical Impression: Alcohol withdrawal Patient Disposition: Admitted As Inpatient
--- NOTE | 2024-12-18 08:12 | ECG_ITS ---
Test Reason : AUD Blood Pressure : */* mmHG Vent. Rate : 104 BPM Atrial Rate : 104 BPM P-R Int : 162 ms QRS Dur : 74 ms QT Int : 328 ms P-R-T Axes : 82 84 60 degrees QTcB Int : 431 ms Sinus tachycardia Possible Anterior infarct , age undetermined Abnormal ECG When compared with ECG of 16-Dec-2024 20:29, T wave amplitude has decreased in Anterior leads Referred By: Yas Mabry Electronically Signed By: SHANTELL HAYWARD MD
[2024-12-18] MEDS: PHENobarbitaL sodium 130 MG/ML IM ONCE 209 MG IM (09:04)
[2024-12-18 09:22] VITALS: BP 131/88; PULSE 97; RESP 13; TEMP 36.8; O2SAT 99
[2024-12-18 09:27] LABS: MANUAL DIFF FLAG NO
[2024-12-18 09:33] LABS: Hematocrit 44.7 % (37.0-47.0); Hemoglobin 15.5 g/dl (12.0-16.0); Imm Gran Abs Auto 0.05 X10*3/uL (0.00-0.03); Imm Gran Pct Auto 0.8 % (0.0-0.4); Lymphocytes Absolute Auto 2.0 X10*3/uL (1.2-4.9); Mean Corpuscular HGB Conc 34.7 g/dl (31.0-35.0); Mean Corpuscular Hemoglobin 30.2 pg (27.0-33.0); Mean Corpuscular Volume 87.1 fL (80.0-98.0); NRBC Abs Auto 0.000 X10*3/uL (0.0-0.012); NRBC Pct Auto 0.0 /100WBC (0.0-0.2); Platelet Count 158 X10*3/uL (160-400); Red Blood Count 5.13 X10*6/uL (4.20-5.50); White Blood Count 6.5 X10*3/uL (4.8-10.8)
--- OUTSIDE RECORDS SUMMARY | 2024-12-18 09:39 | XMS_ITS | Clinical Summary ---
Author Organization [address] Address [address] [place] [phone] Phone Care Team Providers Care Umbrella Repairer Name Role Phone Pcp, Does Not Have A Primary Care Provider Unava ilable Allergies Active Allergy Reactions Criticality Noted Date Comments Ihouetbbu-Rbu-Kt-Acetaminophen 08/15 Penicillins 08/15/2017 Medications traZODone (DESYREL) 100 MG tablet Take 1 tablet by mouth nightly as needed 1 8 Active diazePAM (VALIUM) 10 MG tabletIndications :Alcohol withdrawal syndrome without complication (HC Code),Seizure disorder (HC Code) Take 1 tablet (10 mg total) by mouth every 6 (six) hours as needed (For alcohol withdrawal symptoms) for up to 8 doses 8 tablet 9 Active Active Problems Problem Noted Date Diagnosed Date Unresponsive episode 03/26/2018 Post-ictal state (HC Code) 03/26/2018 Acute renal failure (ARF) 03/26/2018 Encounters Date Type Department Care Team Description 10/07/2024 11:56 AM EDT - 10/07/2024 8:37 PM EDT Hospital Encounter [facility] [address] [place] [address] Estefani Wright MD Joseph, Michael W, MD Nausea and vomiting, unspecified vomiting type (Primary Dx); Alcoholic intoxication without complication (HC Code) Discharge Disposition: Home or Self Care 10/07/2024 Travel from Last 3 Months Immunizations Immunization Administration Dates Next Due Influenza, injectable, quadrivalent, preservativ e free 03/27/2018 Social History Tobacco Use Types Packs/Day Years Used Date Smoking Tobacco: Every Day Cigarettes Smokeless Tobacco: Never Alcohol Use Standard Drinks/Week Comments Yes 12 (1 standard drink = 0.6 oz pure alcohol) daily 12 shots. Quit 10 days ago and relapsed 2 days ago. Humiliation, Afraid, Rape, and Kick questionnair e Answer Date Recorded Within the last year, have y ou been afraid of your partner or ex-partner? Patient declined 06/02/2020 Within the last year, have y ou been humiliated or emotionally abused in other ways by your partner or ex-partner? Patient declined 06/02/2020 Within the last year, have y ou been kicked, hit, slapped, or otherwise physically hurt by your partner or ex-partner? Patient declined 06/02/2020 Within the last year, have y ou been raped or forced to have any kind of sexual activity by your partner or ex-partner? Patient declined 06/02/2020 Social Connection and Isolation Panel [NHANES] A nswer Date Recorded In a typical week, how many times do you talk on the phone with family, friends, or neighbors? Patient declined 06/02/2020 How often do you get togethe r with friends or relatives? Patient declined 06/02/2020 How often do you attend congregational or faith serv ices? Patient declined 06/02/2020 Do you belong to any clubs o r organizations such as congregational groups, unions, fraternal or athletic groups, or school groups? Patient declined 06/02/2020 How often do you attend meet ings of the clubs or organizations you belong to? Patient declined 06/02/2020 Are you , , di vorced, , never , or living with a partner? Patient declined 06/02/2020 Overall Financial Resource Strain (CARDIA) Answe r Date Recorded How hard is it for you to pa y for the very basics like food, housing, medical care, and heating? Not very hard 06/02/2020 [facility] Terral of Occupat ional Health - Occupational Stress Questionnaire Answer Date Recorded Do you feel stress - tense, restless, nervous, or anxious, or unable to sleep at night because your mind is troubled all the time - these days? To some extent 06/02/2020 Exercise Vital Sign Answer Date Recorde d On average, how many days pe r week do you engage in moderate to strenuous exercise (like a brisk walk)? Patient declined On average, how many minutes do you engage in exercise at this level? Patient declined 06/02/2020 Hunger Vital Sign Answer Date Recorded Within the past 12 months, y ou worried that your food would run out before you got the money to buy more. Patient declined Within the past 12 months, t he food you bought just didn't last and you didn't have money to get more. Patient declined PRAPARE - Transportation Answer Date Re corded In the past 12 months, has l ack of transportation kept you from medical appointments or from getting medications? Patient declined 06/02/2020 In the past 12 months, has l ack of transportation kept you from meetings, work, or from getting things needed for daily living? Patient declined 06/02/2020 Interpersonal Safety Answer Date Record ed Is there anyone in your life that is hurting or threatening you in anyway? no 10/07/2024 Physical Indicators of Abuse No evidence of phys ical abuse 10/07/2024 Comments No Sex and Gender Information Value Date Recorded Sex Assigned at Not on file Legal Sex Female 5:32 PM EST Gender Identity Female 09/10/2018 5:59 AM EDT Sexual Orientation Not on file Last Filed Vital Signs Vital Sign Reading Time Taken Comments Blood Pressure 125/85 10/07/2024 5:37 PM EDT Pulse 80 10/07/2024 6:41 PM EDT Temperature 36.8 C (98.3 F) 10/07/2024 5:37 PM EDT Respiratory Rate 15 10/07/2024 6:41 PM EDT Oxygen Saturation 97% 10/07/2024 5:37 PM EDT Inhaled Oxygen Concentration - - Weight 54 kg (119 lb 0.8 oz) 10/07/2024 12:10 PM EDT Height 160 cm (5' 3 ) 09/09/2018 2:37 PM EDT Body Mass Index 21.09 09/09/2018 2:37 PM EDT Plan of Treatment Health Maintenance Due Date Last Done Comments Tetanus adult (Td q 10,TDAP once) 2002 Cervical cancer screening 2003 Pneumococcal Vaccine (2 - 49 years) (2 of 2 - PCV) 10/14/2013 10/14/2012 Breast cancer screening 2022 Lipid disorder screening 2022 Covid-19 vaccine series (2023-25 season) 2024 Influenza vaccine 02/17/2025 03/27/2018 RSV Immunization (1 - 1-dose 75+ series) 2057 HIV screening Completed 09/05/2018 Hepatitis C screening Completed 09/05/2018 Meningococcal Vaccine Aged Out No tang iglesia eligible based on patient's age to complete this topic Procedures Procedure Name Priority Date/Time Associated Diagnosis Comments ETHANOL ([facility]) STAT 10/07/2024 6:29 PM EDT XR CHEST PA AND LATERAL STAT 10/07/2024 12:24 PM EDT CBC AND DIFFERENTIAL STAT 10/07/2024 12:09 PM EDT BASIC METABOLIC PANEL STAT 10/07/2024 12:09 PM EDT CBC WITH AUTO DIFFERENTIAL STAT 10/07/2024 12:09 PM EDT BASIC METABOLIC PANEL STAT 10/07/2024 12:09 PM EDT TROPONIN T HIGH SENSITIVITY, 0 HOUR BASELINE WITH REFLEX ([facility]) STAT 10/07/2024 12:09 PM EDT EKG STAT 10/07/2024 12:00 PM EDT HIV-1/HIV-2 ANTIBODY/ANTIGEN SCREEN W/REFLEX ([facility] Y[facility]) STAT 09/05/2018 2:47 PM EDT HEPATITIS C AB WITH REFLEX TO HCV PCR STAT 09/05/2018 2:47 PM EDT from Last 3 Months or Most Recently Relevant to Health Maintenance Results * (ABNORMAL) Ethanol (10/07/2024 6:29 PM EDT) Ethanol Level 0.08(H) <0.01 g/dL 10/07/2024 7:08 PM EDT [facility] Comment: g/dl is equivalent to g% FOR MEDICAL PURPOSE ONLY Blood Venipuncture / Unknown 10/07/2024 6:29 PM EDT 10/07/2024 6:37 PM EDT Satish Winchester MD LAB BLOOD ORDERABLES Final R esult [facility] [address] [place] [address] * CXR (10/07/2024 12:24 PM EDT) Anatomical Region Laterality Modality Chest Radiographic Ailyn ging 10/07/2024 12:3 0 PM EDT Impressions 10/07/2024 12:31 PM EDT No acute lung abnormality. [facility] Radiology Notification System Classification: Routine. Reported and signed by: Roz Cuellar MD Narrative 10/07/2024 12:31 PM EDT TWO-VIEW CHEST X-RAY HISTORY: chest pain COMPARISON: NONE FINDINGS: Technical limitations: None Lungs/Airways/Pleura: The lungs are clear. No pleural effusions. Heart and Mediastinum: The mediastinal contours are normal. Procedure Note Roz Cuellar MD - 10/07/2024 TWO-VIEW CHEST X-RAY HISTORY: chest pain COMPARISON: NONE FINDINGS: Technical limitations: None Lungs/Airways/Pleura: The lungs are clear. No pleural effusions. Heart and Mediastinum: The mediastinal contours are normal. IMPRESSION: No acute lung abnormality. [facility] Radiology Notification System Classification: Routine. Reported and signed by: Roz Cuellar MD Estefani Wright MD IMG DIAGNOSTIC IMAGING ORDERAB LES Final Result * Basic metabolic panel (10/07/2024 12:09 PM EDT) Glucose 76 65 - 110 mg/dL 10/07/2024 12:48 PM EDT [facility] Comment: Non-fastin-110 mg/dL Fasting (minimum 6 hrs): 65-99 mg/dL BUN 15 7 - 18 mg/dL 10/07/2024 12:48 PM EDT [facility] Creatinine 0.77 0.55 - 1.02 mg/dL 10/07/2024 12:48 PM EDT [facility] Sodium 136 136 - 145 mmol/L 10/07/2024 12:48 PM EDT [facility] Potassium 4.0 3.5 - 5.1 mmol/L 10/07/2024 12:48 PM EDT [facility] Chloride 99 98 - 107 mmol/L 10/07/2024 12:48 PM EDT [facility] CO2 24 21 - 32 mmol/L 10/07/2024 12:48 PM EDT [facility] Anion Gap 13 5 - 15 mmol/L 10/07/2024 12:48 PM EDT [facility] Calcium 8.9 8.5 - 10.1 mg/dL 10/07/2024 12:48 PM EDT [facility] eGFR (Creatinine) >60 >=60 mL/min/1.7 3m2 10/07/2024 12:48 PM EDT [facility] Comment: [facility] utilizes CKD-EPI Creatinine 2020 to report eGFR. Values < 60 mL/min/1.73 m2 may indicate CKD if present for more than three months AND creatinine is at steady state. The eGFR provides a rough estimate of kidney function. For further guidance, please refer to the CKD: Adult [place] Signature pathway. Creatinine Delta 10/07/2024 12:48 PM EDT [facility] Comment:No previous creatini ne <5.00 mg/dL is available within the previous 12 months to calculate a delta creatinine. Blood Venipuncture / Unknown 10/07/2024 12:09 PM EDT 10/07/2024 12:13 PM EDT us Estefani Wright MD LAB BLOOD ORDERABLES Final Res ult [facility] [address] [id number] * Troponin T High Sensitivity, Emergency; 0 hour baseline AND 1 hour with reflex (3 hour) (2:09 PM EDT) [facility] High Sensitivity Troponin T 9 See Comment ng/L 10/07/2024 12:48 PM EDT [facility] Comment:High Sensitivity Tro ponin T levels should be interpreted in the context of the [facility] Care Signature pathway. Blood Venipuncture / Unknown 10/07/2024 12:09 PM EDT 10/07/2024 12:13 PM EDT us Estefani Wright MD LAB BLOOD ORDERABLES Final Res ult [facility] [address], [place] [address] * (ABNORMAL) CBC auto differential (10/07/2024 12:09 PM EDT) [facility] WBC 5.9 4.0 - 11.0 x1000/ L 10/07/2024 12:21 PM EDT [facility] RBC 5.70 4.00 - 6.00 M/ L 10/07/2024 12:21 PM EDT [facility] Hemoglobin 16.8(H) 11.7 - 15.5 g/dL 10/07/2024 12:21 PM EDT [facility] Hematocrit 47.70(H) 35.00 - 45.00 % 10/07/2024 12:21 PM EDT [facility] MCV 83.7 80.0 - 100.0 fL 10/07/2024 12:21 PM EDT [facility] MCH 29.5 27.0 - 33.0 pg 10/07/2024 12:21 PM EDT [facility] MCHC 35.2 31.0 - 36.0 g/dL 10/07/2024 12:21 PM EDT [facility] RDW-CV 14.0 11.0 - 15.0 % 10/07/2024 12:21 PM EDT [facility] Platelets 197 150 - 420 x1000/ L 10/07/2024 12:21 PM EDT [facility] MPV 8.7 8.0 - 12.0 fL 10/07/2024 12:21 PM [facility] Neutrophils 61.8 39.0 - 72.0 % 10/07/2024 12:21 PM [facility] Lymphocytes 32.4 17.0 - 50.0 % 10/07/2024 12:21 PM [facility] Monocytes 4.6 4.0 - 12.0 % 10/07/2024 12:21 PM [facility] Eosinophils 0.2 0.0 - 5.0 % 10/07/2024 12:21 PM [facility] Basophil 0.7 0.0 - 1.4 % 10/07/2024 12:21 PM [facility] Immature Granulocytes 0.3 0.0 - 1.0 % 10/07/2024 12:21 PM [facility] nRBC 0.0 0.0 - 1.0 % 10/07/2024 12:21 PM [facility] Absolute Lymphocyte Count 1.91 0.60 - 3.70 x 1000/ L 10/07/2024 12:21 PM [facility] Monocyte Absolute Count 0.27 0.00 - 1.00 x 1000/ L 10/07/2024 12:21 PM [facility] Eosinophil Absolute Count 0.01 0.00 - 1.00 x 1000/ L 10/07/2024 12:21 PM [facility] Basophil Absolute Count 0.04 0.00 - 1.00 x 1000/ L 10/07/2024 12:21 PM [facility] Absolute Immature Granulocyte Count 0.02 0.00 - 0.30 x 1000/ L 10/07/2024 12:21 PM [facility] Absolute nRBC 0.00 0.00 - 1.00 x 1000/ L 10/07/2024 12:21 PM [facility] ANC (Abs Neutrophil Count) 3.64 2.00 - 7.60 x 1000/ L 10/07/2024 12:21 PM [facility] Blood Venipuncture / Unknown 10/07/2024 12:09 PM EDT 10/07/2024 12:18 PM EDT us Estefani Wright MD LAB BLOOD ORDERABLES Final Res ult [facility] [address] [place] [address] * EKG (10/07/2024 12:00 PM EDT) Heart Rate 99 bpm [facility] EKG QRS Interval 85 ms [facility] EKG QT Interval 364 ms [facility] EKG QTC Interval 468 ms [facility] EKG P [place] 86 deg [facility] EKG QRS [place] 84 deg [facility] EKG T Wave [place] 52 deg [facility] EKG P-R Interval 163 msec [facility] EKG SEVERITY Abnormal ECG severity [facility] EKG Comment::Sinus rhythm:Right atrial enlargement:COMPARED TO THE PRIOR ECG THERE IS NO SIGNIFICANT CHANGE:Electronically Signed On 10-08-2024 8:33:00 EDT by Aj Radford MD 10/07/2024 12:0 0 PM EDT us Truman Ramos DO ECG ORDERABLES Edited Result - Final Performing Organization Address City/[facility] Co de Phone Number [facility] EKG * HIV-1/HIV-2 antibody/antigen screen w/reflex ([facility]) (09/05/2018 2:47 PM EDT) HIV 1 and 2 Antibody/Antige n Screen Negative Negative 09/05/2018 5:49 PM EDT [facility] Comment: If clinical concern for HIV infection remains, then re-screen at an appropriate interval. Patients may be non-reactive if p24 antigen or HIV antibodies have not yet developed. Blood specimen (specimen) Venipuncture / Unknown 09/05/2018 2:47 PM EDT 09/05/2018 2:50 PM EDT us Long HUNT LAB BLOOD ORDERAB LES Final Result [facility] [address] [place] [address] * Hepatitis C AB with reflex to HCV PCR (09/05/2018 2:47 PM EDT) Hepatitis C Antibody Negative Negative 09/05/2018 5:47 PM EDT [facility] Blood specimen (specimen) Venipuncture / Unknown 09/05/2018 2:47 PM EDT 09/05/2018 2:50 PM EDT us Long [facility] LAB BLOOD ORDERAB LES Final Result [facility] [address] [place] [address] from Last 3 Months or Most Recently Relevant to Health Maintenance Insurance MEDICARE [id number] MEDICAID MEDICARE [id number] MEDICAID MEDICARE [id number] MEDICAID Advance Directives * Full ACLS (Latest Code Status on File) Date Activated Date Inactivated Comments 09/10/2018 10:40 AM 09/11/2018 4:46 PM Question Answer Comments With Whom was the Code Status Discussed? Patient * Full ACLS Date Activated Date Inactivated Comments 03/26/2018 6:59 AM 03/27/2018 10:45 PM Care Teams Umbrella Repairer Relationship Specialty Start Date End Date Pcp, Does Not Have A PCP - General 10/07/24
--- OUTSIDE RECORDS SUMMARY | 2024-12-18 09:39 | XMS_ITS | Referral Summary ---
Author Organization [facility] Address [address] [place] [address] Care Team Providers Care Thread Grinder Name Role Phone Patient, Has No Pcp Or Ref Primary Care Provider Unavailable Allergies Active Allergy Reactions Criticality Noted Date Comments Penicillins Unknown 04/19/2023 Medications lamoTRIgine (LaMICtal) 100 mg tablet Take 100 mg by mouth every night. 3 Active lurasidone (LATUDA) 40 mg tablet Take 40 mg by mouth once a day. 3 Active omeprazole (PriLOSEC) 20 mg capsule Take 40 mg by mouth once a day. 3 Active lamoTRIgine (LaMICtal) 100 mg tablet Take 150 mg by mouth once a day. Active dextroamphetami ne-amphetamine XR (ADDERALL XR) 20 mg capsule Take 40 mg by mouth every morning. 3 Active docusate sodium (COLACE) 100 mg capsule Take 1 capsule (100 mg total) by mouth 2 times a day as needed for constipation. 60 capsule 3 Active folic acid (FOLVITE) 1 mg tablet Take 1 tablet (1 mg total) by mouth once a day. 30 tablet 3 Active senna (SENOKOT) 8.6 mg tablet Take 2 tablets (17.2 mg total) by mouth daily as needed for constipation for up to 15 days. 30 tablet 3 Active LORazepam (ATIVAN) 0.5 mg tablet Take 2 tablets (1 mg total) by mouth every 8 hours for 1 day, THEN 2 tablets (1 mg total) every 12 hours for 1 day, THEN 2 tablets (1 mg total) once a day for 1 day, THEN 1 tablet (0.5 mg total) once a day for 1 day. 13 tablet 3 Active Active Problems Problem Noted Date Diagnosed Date Attention deficit hyperactiv ity disorder (ADHD), predominantly hyperactive type 04/24/2023 Assessment & Plan (04/24/2023 4:19 AM EST): History of ADHD. Currently on Adderall 40 mg p.o. daily. Confirmed on [facility] Plan: -Continue with Adderall Alcohol withdrawal syndrome, uncomplicated 04/19 Assessment & Plan (04/24/2023 4:19 AM EST): Patient with a history of heavy alcohol consumption coming in today after having 3 nips of alcohol today. Alcohol level is 130 in the ER. Patient is in active withdrawal with a CIWA score of 11 per my evaluation. Plan: -Start the patient on CIWA protocol -Thiamine and folic acid supplementation -environmental services supervisor consult for outpatient management Assessment & Plan (04/22/2023 1:31 PM EDT): Patient with history of EtOH dependence reporting drinking about 2-3 pints of hard liquor daily. Last drink was the night before presentation. Recently went to [facility] but left to drink. Presents with symptoms of alcohol withdrawal. Started on CIWA in the ED. - CIWA with lorazepam protocol - EtOH cessation counseling - Addiction psychiatry consult when improved from withdrawal - Folate, Mg, thiamine supplement - holding zofran while giving sched reglan (see abd pain section) - QTC 449ms on 04/21/23 Alcoholic ketoacidosis 04/19/2023 Assessment & Plan (04/19/2023 2:36 PM EDT): Presented with anion gap in setting of no recent oral intake with suspect alcoholic ketoacidosis. Improved with IV fluids in the ED. - Continue IV fluids - Daily BMP Hyponatremia 04/19/2023 Assessment & Plan (04/20/2023 4:44 PM EDT): Mild hyponatremia on admission labs. Likely due to poor oral intake in setting of EtOH abuse. - Daily BMP - Improving Transaminitis 04/19/2023 Assessment & Plan (04/20/2023 4:44 PM EDT): Mild transaminates in setting of active EtOH abuse. Likely related to her alcohol use. - Trend LFTs daily - Consider RUQ US if worsening Seizure disorder 04/19/2023 Assessment & Plan (04/24/2023 4:20 AM EST): Patient with a history of seizure disorder currently on lamotrigine 100 mg at night and 150 mg during the day. Continue with home regimen of lamotrigine Assessment & Plan (04/19/2023 2:37 PM EDT): Continue home lamotrigine 150 mg daily and 100 mg nightly Mood disorder 04/19/2023 Assessment & Plan (04/24/2023 4:20 AM EST): Continue with home dose of lurasidone 40 mg once a day Assessment & Plan (04/19/2023 2:38 PM EDT): Continue home lurasidone 40 mg daily Resolved Problems Problem Noted Date Diagnosed Date Resolved Date Abdominal pain 04/24/2023 04/24/2023 Assessment & Plan (04/24/2023 4:21 AM EST): Patient coming in with chief complaint of diffuse abdominal pain. Patient was just admitted yesterday and left AMA. Apparently she left and had some drinks and then decided to come back when the pain got worse. Suspect there is a complaint of constipation along with epigastritis with a history of heavy alcohol consumption. CT abdomen pelvis done yesterday showed heavy stool burden and patient was started on multiple laxatives on last admission. Patient states that yesterday morning she did have a bowel movement. Plan: -We will keep the patient on morphine and oxy as needed -Start senna, Colace, MiraLAX tonight. If the patient does not have a bowel movement until morning, consider enema -Start on Protonix 40 mg IV daily -Zofran as needed for nausea Epigastric pain 04/21/2023 04/24/2023 Assessment & Plan (04/22/2023 1:32 PM EDT): Patient c/o 03/28 abd pain on 04/21/23. Not present at time of admission. Pt also endorses nausea and vomiting. Lipase checked at time of admission was 54. Per chart review, pt does have h/o recurrent pancreatitis dating back to at least 2018. Further workup with MRCP or ERCP has been deferred by patient several times since that time followed by discharging AMA. LFTs with slight elevation of AST/ALT to 50s but no elevatinon in ALP or Bilirubin. Exam is inconsistent. Low suspicion for alcohol induced hepatitis, pt could have pancreatitis or gastroenteritis. Lipase negative. CTAP w out evidence of pancreatitis, notable for heavy stool burden and distended stomach with fluid. -increase bowel regimen - colace, senna, duclolax -discontinued zofran, trial of reglan 5mg iv q6h x4 doses for motility -acetaminophen 650mg po q6h prn -daily HFPs until normal range Social History Tobacco Use Types Packs/Day Years Used Date Smoking Tobacco: Every Day Cigarettes 1 27.5 Started: 1997 Smokeless Tobacco: Never Tobacco Cessation:Ready to Q uit: Yes; Counseling Given: No Alcohol Use Standard Drinks/Week Comments Yes 0 (1 standard drink = 0.6 oz pur e alcohol) Pt was on a 12 day binge Comments No Sex and Gender Information Value Date Recorded Sex Assigned at Not on file Legal Sex Female 5:02 AM EDT Gender Identity Not on file Sexual Orientation Not on file Last Filed Vital Signs Vital Sign Reading Time Taken Comments Blood Pressure 123/80 04/24/2023 4:54 AM EST Pulse 103 04/24/2023 4:54 AM EST Temperature 37 C (98.6 F) 04/24/2023 4:54 AM EST Respiratory Rate 20 04/24/2023 4:54 AM EST Oxygen Saturation 100% 04/24/2023 4:54 AM EST Inhaled Oxygen Concentration - - Weight 49.9 kg (110 lb) 04/24/2023 2:16 AM EST Height 157.5 cm (5' 2 ) 04/19/2023 6:20 AM EDT Body Mass Index 20.12 04/19/2023 6:20 AM EDT Plan of Treatment Not on file Insurance [facility] MEDICARE Advance Directives * Full Code (Latest Code Status on File) Date Activated Date Inactivated Comments 04/24/2023 3:13 AM 04/24/2023 12:49 PM * Full Code Date Activated Date Inactivated Comments 04/19/2023 1:14 PM 04/23/2023 4:27 PM Care Teams Thread Grinder Relationship Specialty Start Date End Date Patient, Has No Pcp Or Ref DO NOT EDIT THIS RECORD VIA PROVIDER ON THE FLY PCP - General Digital Printer 04/19/23
--- OUTSIDE RECORDS SUMMARY | 2024-12-18 09:39 | XMS_ITS | Clinical Summary ---
Author Organization 175 [facility] Address [address] [place] [address] Phone Care Team Providers Care Manager Council Name Role Phone Rosangela Greenfield MD Primary Care Provider Allergies Active Allergy Reactions Criticality Noted Date Comments Morphine 10/11/2023 Nyquil 10/11/2023 Penicillins 10/11/2023 Medications lamoTRIgine (LaMICtal) 100 mg tablet Take 2.5 tablets (250 mg total) by mouth 1 (one) time each day. Active amphetamine-dex troamphetamine (ADDERALL) 20 mg tablet Take 1 tablet (20 mg total) by mouth 2 (two) times a day. Active prazosin (MINIPRESS) 1 mg capsule Take 1 capsule (1 mg total) by mouth 1 (one) time each day. Active Active Problems Problem Noted Date Diagnosed Date Mallet finger of right finger(s) 09/16/2024 Encounters Date Type Department Care Team Description 11/28/2024 7:14 AM EDT - 11/28/2024 11:59 PM EDT Hospital Encounter [facility] Xray [address] [place] [id number] Pain Discharge Disposition: Home or Self Care 10/21/2024 2:15 PM EDT Office Visit [facility] [address] [id number] Ken Mercado MD Mallet finger of right finger(s) (Primary Dx) 10/15/2024 Telephone [facility] [address] [id number] Rafaela Wheatley MA 30 Min F/Up 10/14/2024 Telephone [facility] [address] [id number] Rafaela Wheatley MA Surgery 09/23/2024 Telephone [facility] [address] [id number] Ken Mercado MD Rs her srugery that was CX on 09/20 from Last 3 Months Surgical History Surgery Date Site/Laterality Comments UPPER GASTROINTESTINAL ENDOSCOPY Medical History Medical History Date Comments GERD (gastroesophageal reflux disease) Carpal tunnel syndrome Liver disease Anxiety Social History Tobacco Use Types Packs/Day Years Used Date Smoking Tobacco: Never Assessed Comments Unknown Sex and Gender Information Value Date Recorded Sex Assigned at Not on file Legal Sex Female 5:44 PM EST Gender Identity Not on file Sexual Orientation Not on file Obstetrics History Last Filed Vital Signs Vital Sign Reading Time Taken Comments Blood Pressure 98/66 10/11/2023 10:48 AM EDT Si tting L Arm Pulse 105 10/11/2023 10:48 AM EDT Temperature - - Respiratory Rate - - Oxygen Saturation - - Inhaled Oxygen Concentration - - Weight 54.4 kg (120 lb) 10/21/2024 2:12 PM EDT Height 160 cm (5' 2.99 ) 10/21/2024 2:12 PM EDT Body Mass Index 21.26 10/21/2024 2:12 PM EDT Plan of Treatment Health Maintenance Due Date Last Done Comments Breast Cancer Screening 1982 DTaP,Tdap,and Td Vaccines (1 - Tdap) 2001 Hepatitis A Vaccines (1 of 2 - Risk 2-dose series) 2001 Hepatitis B Vaccines (2 of 3 - 19+ 3-dose series) 11/12/2012 10/15/2012 Cervical Cancer Screening: P ap Smear 06/26/2018 06/26/2015 Depression Screening 05/21/2022 HIV Screening 05/21/2022 Medicare Annual Wellness Visit 05/21/2022 Social Influencers of Health Screening 05/21/2022 COVID-19 Vaccine (1 - 2023-2 5 season) 2024 Influenza Vaccine (Season Ended) 2025 03/27/2018 Pneumococcal Vaccine: Pediatrics (0 to 5 Years) and At-Risk Patients (6 to 64 Years) Aged Out 10/14/2012 No longer eligible b ased on patient's age to complete this topic Hepatitis C Screening Completed 07/13/2020 , 09/05/2018 HIB Vaccines Aged Out No longer eligi ble based on patient's age to complete this topic HPV Vaccines Aged Out No longer eligi ble based on patient's age to complete this topic IPV Vaccines Aged Out No longer eligi ble based on patient's age to complete this topic MMR Vaccines Aged Out No longer eligi ble based on patient's age to complete this topic Meningococcal ACWY Vaccine Aged Out N o longer eligible based on patient's age to complete this topic Meningococcal B Vaccine Aged Out No l onger eligible based on patient's age to complete this topic RSV Immunization Patients Under 20 months Aged Out No longer eligible b ased on patient's age to complete this topic Varicella Vaccines Aged Out No longer eligible based on patient's age to complete this topic Insurance [place]ICA[place] - [place] MEDICARE Care Teams Manager Council Relationship Specialty Start Date End Date Rosangela Greenfield MD [address] [place] [address] PCP - General 02/10/21
[2024-12-18 09:57] LABS: Alanine Aminotransferase 74 U/L (0-31); Albumin Level 4.0 g/dL (3.5-5.0); Alkaline Phosphatase 57 U/L (39-117); Anion Gap 12 (12-20); Aspartate Amino Transferase 73 U/L (5-31); Blood Urea Nitrogen 15 mg/dL (9-16); Calcium 9.0 mg/dL (8.4-10.2); Carbon Dioxide 27 mmol/L (22-29); Chloride 101 mmol/L (96-108); Creatinine Clr Calc Pharmacy 98.9; Estimated Glomerular Filt Rate > 60; Magnesium 1.8 mg/dL (1.6-2.6); Potassium 4.6 mmol/L (3.3-5.1); Sodium 135 mmol/L (135-145); Total Protein 6.6 g/dL (6.5-8.0)
[2024-12-18 09:58] LABS: Troponin-I High Sensitivity < 2.7 ng/L (<3.5-17.0)
--- NOTE | 2024-12-18 10:32 | PC.NURSE ---
pt reports new onset of visual hallucinations; pt thought she saw a pt standing in her room, but the room was empty;; pt denies auditory hallucinations at this time
[2024-12-18 10:53] LABS: Cannabinoid Screen Urine POSITIVE (Not Detect)
[2024-12-18 10:56] LABS: Appearance Urine Cloudy; Glucose Urine UA Negative (Negative); PH 8.0 (5.0-9.0); Specific Gravity - Urine 1.015 (1.005-1.025)
--- NOTE | 2024-12-18 11:14 | PM.IMHP ---
History of Present Illness Date of Service: 12/18/24 Attending physician on admission: [facility] Chief Complaint: Acute alcohol withdrawal Pt is a 44-year-old female with a PMH significant for?seizure disorder on lamotrigine, alcohol use disorder with hx of withdrawal, GERD, and ADHD who presents to the ED seeking alcohol detox after leaving yesterday AMA. Pt was previously admitted to the hospital 3 days prior for the same and was started on phenobarb protocol, however pt left AMA yesterday and went home and drank two sleeves of vodka. Reports was having visual hallucinations, imaging that her father was at the door, as well as seen another person in her room today in the ED. no nausea or vomiting, though some mild diffuse abdominal pain. Denies seizure or tremors. Reports fell and scraped her right knee while inebriated. Pt is emotionally labile during interview and exam, stating she does not wish to live like this and wants help to stop drinking. Apparently has some social support in [place], but none here. Lives with her mother. Denies chest pain/pressure, palpitations. No SOB or difficulty breathing. No significant right knee or leg pain. Pt was initially tachycardic up to 124, otherwise vitals stable. Mild transaminitis, though improved from prior. Otherwise workup negative, including negative UTI and tox screen similar to prior. Alcohol levels negative. Pt will be readmitted to the hospital after leaving AMA yesterday in order to continue alcohol detox on phenobarb protocol. Review of Systems Review of Systems: Negative except for that which is stated in the HPI. [facility] Medical History Alcohol use disorder Cigarette smoker one half pack a day or less Irregular periods/menstrual cycles Depression with anxiety Chronic heartburn Hx of pancreatitis Seizure disorder Hx of Family History Other No significant family history Surgical History Everest teeth extracted Social History Household Members: Family Household Members Other:: lives with her mother Housing: Apartment Alcohol intake: current Alcohol intake frequency: 3 or more drinks per day Alcohol type: hard liquor Patient Tobacco Use Status: Current everyday Tobacco user Tobacco use type: Cigarette Cigarette Packs Per Day: 0.5 Cigarettes Per Day: 4 Smoked in Last 30 Days: Yes Second Hand Smoke Exposure: No Use of substances other than those prescribed or required for medical reasons: No Substance Use Type: Marijuana Advance Directives: No Advance Directives Information Provided: Yes Do you have a plan to hurt others: No Plan Patient : No service: No Current occupational status: unemployed Meds Allergies Allergy/AdvReac Type Severity Reaction Status Date / Time Penicillins AdvReac Rash Verified 12/18/24 08:05 Active Medications: Current Medications Pharmacy Consult (Consult Rx Etoh Phenob Im/Po) 1 each MISCELLANE ONCE PRN; Protocol PRN Reason: Consult order Phenobarbital (Phenobarbital 15 Mg Tablet) 45 mg PO BID ALICIA; Protocol Stop: 12/20/24 09:01 Phenobarbital (Phenobarbital 15 Mg Tablet) 15 mg PO BID ALICIA; Protocol Stop: 12/22/24 09:01 Phenobarbital (Phenobarbital 15 Mg Tablet) 15 mg PO DAILY ALICIA; Protocol Stop: 12/24/24 09:01 Phenobarbital Sodium (Phenobarbital Sodium 130 Mg/Ml Vial Im Q3hx2) 157 mg IM Q3H ALICIA; Protocol Stop: 12/18/24 14:31 Home Medications ?Medication ?Instructions ?Recorded ?Confirmed ?Last Taken ?Type dextroamphetamine-amphetamine ER 1 cap PO BID 12/15/24 12/18/24 12/17/24 History 20 mg 24hr capsule,extend release (Adderall XR) ibuprofen 800 mg tablet 800 mg PO DAILY PRN Pain 12/15/24 12/18/24 Unknown History lamotrigine 100 mg tablet 100 mg PO DAILY 12/15/24 12/18/24 12/17/24 History lamotrigine 100 mg tablet 150 mg PO BEDTIME 12/15/24 12/18/24 12/17/24 History Physical Exam Vital Signs and Narrative: Vital Signs: Last Vital Signs Temp 98.2 F 12/18/24 09:22 Pulse 97 12/18/24 09:22 Resp 13 12/18/24 09:22 BP 131/88 12/18/24 09:22 Pulse Ox 99 12/18/24 09:22 O2 Del Method Room Air 12/18/24 09:22 BMI result Body Mass Index 20.4 General: AOx3, no acute distress Resp: CTA bilaterally CVS: S1, S2, RRR GI: +BS, NT, no distention Skin: Warm, dry Neuro: Cranial nerves II-XII grossly intact bilaterally. Motor grossly intact bilaterally. No upper extremity tremors noted. Extremities: No edema. Right knee with superficial abrasions. No sign of infection. Knee nontender. Preserved and symmetric strength of lower extremities bilaterally. Preserved and nonpainful range of motion of right knee and hip. Psych: Emotionally labile Results Labs 12/18/24 09:22 12/18/24 09:21 Labs: Laboratory Results - last 24 hr 12/18/24 12/18/24 12/18/24 09:21 09:22 10:33 MCV 87.1 MCH 30.2 MCHC 34.7 RDW 16.6 H Plt Count 158 L MPV 8.7 L Immature Gran % (Auto) 0.8 H Neut % (Auto) 54.1 Lymph % (Auto) 31.4 [place] % (Auto) 11.5 H Eos % (Auto) 1.4 Baso % (Auto) 0.8 Lymph # (Auto) 2.0 [place] # (Auto) 0.8 Eos # (Auto) 0.1 Baso # (Auto) 0.1 Abs Immat Gran (auto) 0.05 H Absolute Neuts (auto) 3.5 Absolute Nucleated RBC 0.000 Nucleated RBC % (auto) 0.0 Anion Gap 12 Estim Creat Clear Calc 98.9 Estimated GFR > 60 Random Glucose 97 Calcium 9.0 D Magnesium 1.8 Total Bilirubin 0.3 AST 73 H ALT 74 H Alkaline Phosphatase 57 Troponin I High Sens < 2.7 Total Protein 6.6 Albumin 4.0 Urine Color Yellow Urine Appearance Cloudy Urine pH 8.0 Ur Specific [place] 1.015 Urine Protein Negative Urine Glucose (UA) Negative Urine Ketones Negative Urine Blood Negative Urine Nitrite Negative Ur Leukocyte Esterase Negative Urine Opiates Screen Ur Buprenorphine Scrn Ur Oxycodone Screen Urine Methadone Screen Urine Fentanyl Screen Ur Barbiturates Screen Ur Phencyclidine Scrn Ur Amphetamines Screen U Benzodiazepines Scrn Urine Cocaine Screen U Marijuana (THC) Screen Ethyl Alcohol < 10 12/18/24 10:36 MCV MCH MCHC RDW Plt Count MPV Immature Gran % (Auto) Neut % (Auto) Lymph % (Auto) [place] % (Auto) Eos % (Auto) Baso % (Auto) Lymph # (Auto) [place] # (Auto) Eos # (Auto) Baso # (Auto) Abs Immat Gran (auto) Absolute Neuts (auto) Absolute Nucleated RBC Nucleated RBC % (auto) Anion Gap Estim Creat Clear Calc Estimated GFR Random Glucose Calcium Magnesium Total Bilirubin AST ALT Alkaline Phosphatase Troponin I High Sens Total Protein Albumin Urine Color Urine Appearance Urine pH Ur Specific [place] Urine Protein Urine Glucose (UA) Urine Ketones Urine Blood Urine Nitrite Ur Leukocyte Esterase Urine Opiates Screen Not Detected Ur Buprenorphine Scrn Not Detected Ur Oxycodone Screen Not Detected Urine Methadone Screen Not Detected Urine Fentanyl Screen Not Detected Ur Barbiturates Screen POSITIVE H Ur Phencyclidine Scrn Not Detected Ur Amphetamines Screen Not Detected U Benzodiazepines Scrn POSITIVE H Urine Cocaine Screen Not Detected U Marijuana (THC) Screen POSITIVE H Ethyl Alcohol Assessment and Plan (1) Alcohol withdrawal: Status: Acute Plan Pt is a 44-year-old female with a PMH significant for?seizure disorder on lamotrigine, alcohol use disorder with hx of withdrawal, GERD, and ADHD who presents to the ED seeking alcohol detox after leaving yesterday AMA. Pt will be readmitted to the hospital after leaving AMA yesterday in order to continue alcohol detox on phenobarb protocol. Acute alcohol withdrawal Pt drinking 2 sleeves of vodka daily x3 months, reports tremors, N/V, anxiety, seeing black dots, diaphoresis, tremors when tried to detox on her own prior to first admission Left AMA yesterday and went home to drink another two sleeves of vodka; reports visual hallucinations Continue Phenobarb protocol Daily multivitamin, folic acid, thiamine, famotidine Follow lytes, Mag, BMP CIWA scale Addiction medicine consult Monitor on telemetry Transaminitis Improving, <del>likely</del> secondary to alcohol use Seizure disorder Question of compliance with home meds Continue lamotrigine Seizure precautions ADHD Continue Adderall Full Code Attending:?Dr. Perrin DVT Prophylaxis: Lovenox Pt will require at least a 2 night stay in the hospital for treatment and further evaluation of alcohol withdrawal requiring phenobarb protocol and close monitoring of labs and vitals. Quality Stroke Does the patient have a stroke diagnosis?: No VTE Prior VTE?: No VTE Risk Level:: Medical - moderate - high VTE Device Contraindication: Treatment Not Indicated VTE Drug Contraindication: N/A - Med Ordered
--- NOTE | 2024-12-18 11:33 | PHA.MEDREC ---
Addendum entered by Nicki Velarde RPh 12/18/24 11:44: MED REC REVIEWED BY [facility] Original Note: Pharmacy Consult ? Medication Reconciliation Pharmacy has completed the medication reconciliation. Spoke with pt and she confirmed she just left our facility yesterday and non of her medications changed.
[2024-12-18] MEDS: PHENobarbitaL sodium 130 MG/ML VIAL IM Q3Hx2 157 MG IM ×2 (12:25→15:03)
[2024-12-18] MEDS: diazePAM 10 MG/2 ML CARTRIDGE 5 MG IVPUSH (12:34)
--- NOTE | 2024-12-18 13:40 | MHC.EDTECH ---
Patient did not changer over, RADHA ramires
--- NOTE | 2024-12-18 13:48 | MHC.EDTECH ---
Belongings List was completed.
[2024-12-18 14:04] VITALS: BP 134/65; PULSE 98; RESP 14; TEMP 36.8; O2SAT 99
[2024-12-18 16:26] VITALS: BP 128/85; PULSE 92; RESP 18; TEMP 36.7; O2SAT 97
[2024-12-18 16:42] VITALS: BMI 21.0
[2024-12-18] MEDS: 0.9 % Sodium Chloride Flush 3 ML SYRINGE IVFLUSH (17:23)
[2024-12-18 19:36] VITALS: BP 124/84; PULSE 76; RESP 16; TEMP 36.8; O2SAT 98
[2024-12-18] MEDS: Dextroamphetamine/Amphetamine XR 10 MG CAP.ER.24H 20 MG PO (20:11)
[2024-12-18] MEDS: Milk of Magnesia 30 ML ORAL.SUSP PO (20:32)
[2024-12-18 23:41] VITALS: BP 105/62; PULSE 93; RESP 16; TEMP 36.4; O2SAT 99
[2024-12-19 03:11] VITALS: BP 118/77; PULSE 72; RESP 16; TEMP 36; O2SAT 99
[2024-12-19 08:00] VITALS: BP 126/76; PULSE 86; RESP 18; TEMP 36.5; O2SAT 96
[2024-12-19] MEDS: 0.9 % Sodium Chloride Flush 3 ML SYRINGE IVFLUSH (08:18)
--- NOTE | 2024-12-19 08:54 | P.DS_ITS ---
DS: Providers Provider Date of Service: 12/19/24 Date of admission: 12/18/24 10:44 Date of discharge: 12/19/24 Primary care physician: None Physician Consults: 12/18/24 13:22 Addiction Medicine Provider Routine Consulting Provider: Addiction Covering Reason for consultation: AUD, left AMA yesterday to drink, back again DS: Diagnosis Discharge Diagnosis (1) Alcohol withdrawal: Status: Acute DS: Summary Hospital Course Hospital Course: From admitting HPI: Date of Service: 12/18/24 [facility] Chief Complaint: Acute alcohol withdrawal Pt is a 44-year-old female with a PMH significant for?seizure disorder on lamotrigine, alcohol use disorder with hx of withdrawal, GERD, and ADHD who presents to the ED seeking alcohol detox after leaving yesterday AMA. Pt was previously admitted to the hospital 3 days prior for the same and was started on phenobarb protocol, however pt left AMA yesterday and went home and drank two sleeves of vodka. Reports was having visual hallucinations, imaging that her father was at the door, as well as seen another person in her room today in the ED. no nausea or vomiting, though some mild diffuse abdominal pain. Denies seizure or tremors. Reports fell and scraped her right knee while inebriated. Pt is emotionally labile during interview and exam, stating she does not wish to live like this and wants help to stop drinking. Apparently has some social support in [place], but none here. Lives with her mother. Denies chest pain/pressure, palpitations. No SOB or difficulty breathing. No significant right knee or leg pain. Pt was initially tachycardic up to 124, otherwise vitals stable. Mild transaminitis, though improved from prior. Otherwise workup negative, including negative UTI and tox screen similar to prior. Alcohol levels negative. Pt will be readmitted to the hospital after leaving AMA yesterday in order to continue alcohol detox on phenobarb protocol. Hospital course: Pt was readmitted to the hospital for acute alcohol withdrawal after leaving the day prior AMA. Pt initially scored low on CIWA but reported visual hallucination of the case she saw somebody standing in her hospital ED room, and pt was restarted on phenobarb protocol. Pt had no significant acute events overnight though she declined overnight telemetry monitoring. Continued to score 1-2 on CIWA overnight. Pt currently denies any auditory or visual hallucinations or tactile disturbances. No nausea, vomiting, headache, diaphoresis, or increased anxiety. Reports she feels her belly is bloated, though abdominal exam benign with soft abdomen and nontender abdomen. Pt is seen sitting in bed eating eggs, hu, and toast without difficulty. Pt declines seeing Addiction Medicine and wishes to be discharged from the hospital. Pt is strongly encouraged to abstain from alcohol use, and to seek out family, social, and community support in order to help her stay sober. For seizure disorder Continue lamotrigine For ADHD Continue Adderall Time Attestation Discharge Coordination Time (in mins): 32 Quality: Safe Use of Opioids Does Pt have an Active Cancer Diagnosis on the Problem List?: No Quality: Stroke Does the patient have a stroke diagnosis?: No Physical Exam Vital Signs: Vital Signs: Last Vital Signs Temp 97.7 F 12/19/24 08:00 Pulse 86 12/19/24 08:00 Resp 18 12/19/24 08:00 BP 126/76 12/19/24 08:00 Pulse Ox 96 12/19/24 08:00 O2 Del Method Room Air 12/19/24 08:00 BMI result Body Mass Index 21.0 General: AOx3, no acute distress. No diaphoresis Resp: CTA bilaterally CVS: S1, S2, RRR GI: +BS, NT, no distention Skin: Warm, dry Neuro: Cranial nerves II-XII grossly intact bilaterally. Motor grossly intact bilaterally. No upper extremity tremors noted. Extremities: No edema Psych: Irritable but cooperative DS: Data Data Completed and Pending Labs on day of discharge: Laboratory Results - last 24 hr 12/18/24 12/18/24 12/18/24 09:21 09:22 10:33 WBC 6.5 RBC 5.13 Hgb 15.5 Hct 44.7 MCV 87.1 MCH 30.2 MCHC 34.7 RDW 16.6 H Plt Count 158 L MPV 8.7 L Immature Gran % (Auto) 0.8 H Neut % (Auto) 54.1 Lymph % (Auto) 31.4 [place] % (Auto) 11.5 H Eos % (Auto) 1.4 Baso % (Auto) 0.8 Lymph # (Auto) 2.0 [place] # (Auto) 0.8 Eos # (Auto) 0.1 Baso # (Auto) 0.1 Abs Immat Gran (auto) 0.05 H Absolute Neuts (auto) 3.5 Absolute Nucleated RBC 0.000 Nucleated RBC % (auto) 0.0 Sodium 135 Potassium 4.6 Chloride 101 Carbon Dioxide 27 Anion Gap 12 BUN 15 Creatinine 0.61 Estim Creat Clear Calc 98.9 Estimated GFR > 60 Random Glucose 97 Calcium 9.0 D Magnesium 1.8 Total Bilirubin 0.3 AST 73 H ALT 74 H Alkaline Phosphatase 57 Troponin I High Sens < 2.7 Total Protein 6.6 Albumin 4.0 Urine Color Yellow Urine Appearance Cloudy Urine pH 8.0 Ur Specific [place] 1.015 Urine Protein Negative Urine Glucose (UA) Negative Urine Ketones Negative Urine Blood Negative Urine Nitrite Negative Ur Leukocyte Esterase Negative Urine Opiates Screen Ur Buprenorphine Scrn Ur Oxycodone Screen Urine Methadone Screen Urine Fentanyl Screen Ur Barbiturates Screen Ur Phencyclidine Scrn Ur Amphetamines Screen U Benzodiazepines Scrn Urine Cocaine Screen U Marijuana (THC) Screen Ethyl Alcohol < 10 12/18/24 10:36 WBC RBC Hgb Hct MCV MCH MCHC RDW Plt Count MPV Immature Gran % (Auto) Neut % (Auto) Lymph % (Auto) [place] % (Auto) Eos % (Auto) Baso % (Auto) Lymph # (Auto) [place] # (Auto) Eos # (Auto) Baso # (Auto) Abs Immat Gran (auto) Absolute Neuts (auto) Absolute Nucleated RBC Nucleated RBC % (auto) Sodium Potassium Chloride Carbon Dioxide Anion Gap BUN Creatinine Estim Creat Clear Calc Estimated GFR Random Glucose Calcium Magnesium Total Bilirubin AST ALT Alkaline Phosphatase Troponin I High Sens Total Protein Albumin Urine Color Urine Appearance Urine pH Ur Specific [place] Urine Protein Urine Glucose (UA) Urine Ketones Urine Blood Urine Nitrite Ur Leukocyte Esterase Urine Opiates Screen Not Detected Ur Buprenorphine Scrn Not Detected Ur Oxycodone Screen Not Detected Urine Methadone Screen Not Detected Urine Fentanyl Screen Not Detected Ur Barbiturates Screen POSITIVE H Ur Phencyclidine Scrn Not Detected Ur Amphetamines Screen Not Detected U Benzodiazepines Scrn POSITIVE H Urine Cocaine Screen Not Detected U Marijuana (THC) Screen POSITIVE H Ethyl Alcohol Discharge Plan Discharge Anticipated Discharge Date/Time: 12/19/24 08:47 Patient Disposition: Home, Self-Care Discharge Diagnosis: Alcohol withdrawal Referrals: Physician,None [Primary Care Provider, Medical] - 1 Week Discharge Medications: Continued dextroamphetamine-amphetamine [Adderall XR] 20 mg capsule,extended release 24hr 1 cap PO BID lamotrigine 100 mg tablet 100 mg PO DAILY lamotrigine 100 mg tablet 150 mg PO BEDTIME ibuprofen 800 mg Tablet 800 mg PO DAILY PRN (Reason: Pain) Discharge Orders: Discharge Order (Routine); Ordered 12/19/24 Ordered By: Juan C Conway Activity on Discharge: As tolerated Stand Alone Forms: Patient Portal Discharge page Print Language: Maori Care Plan Goals: See below Health Concerns: Alcohol use Alcoholic gastritis Seizure disorder Plan of Treatment: Pt is strongly encouraged to abstain from drinking alcohol Seek out family and social support for help with staying sober Take daily multivitamin; eat a balanced and nutritious diet Assessment: See discharge summary Discharge Date/Time: 12/19/24 09:50
--- NOTE | 2024-12-19 09:06 | MHC.CM.PN ---
CM met with Patient at bedside and addressed IMM with her, providing Patient with the original and a copy has been placed on the chart. Patient lives in an apartment with her Mother and she is functionally independent. Patient has an appointment in February to get a PCP and HCP was declined. Patient has been medically cleared for dc to home today, self care. CM will arrange for a LYFT for today at 11:30 for transport to home; MD & RN are aware.
== END 2024-12-19 09:50 | disposition home or self-care (01) | DRG 897 ==
LOC: HO.ED 10:33 → HO.EDOVER 10:44 → HO.IMC 15:33
PROVIDERS: Physician Assistant Medical; Admitting Provider Internal Medicine; Emergency Provider Emergency Medicine Emergency Medical Services; Visit Provider Internal Medicine
DX: F10.932 Alcohol use, unspecified with withdrawal with perceptual disturbance (principal); G40.909 Epilepsy, unspecified, not intractable, without status epilepticus; F90.9 Attention-deficit hyperactivity disorder, unspecified type; Z87.891 Personal history of nicotine dependence
CPT/HCPCS: 36415; 80053; 80307; 81003; 83735; 84484; 85025; 93005; 99285; J1171; J2405; J2560; J3360

== ENCOUNTER → 2024-12-18 08:12 | Outpatient (BNV) | payer MEDICARE, MEDICAID, SELFPAY | PROVIDERS: Admitting Provider Internal Medicine; Emergency Provider Emergency Medicine Emergency Medical Services; Visit Provider Internal Medicine Cardiovascular Disease | DX: R00.0 Tachycardia, unspecified (principal) | CPT/HCPCS: 93010 ==

== ENCOUNTER → 2024-12-18 10:44 | Outpatient (BNV) | payer MEDICARE, MEDICAID, SELFPAY | PROVIDERS: Admitting Provider Internal Medicine; Emergency Provider Emergency Medicine Emergency Medical Services; Visit Provider Student in an Organized Health Care Education/Training Program | DX: F10.939 Alcohol use, unspecified with withdrawal, unspecified (principal) | CPT/HCPCS: 99222; 99239 ==